=== PATIENT | male | born 1995 | race Hispanic/Latino ===

== ENCOUNTER 2020-12-31 22:59 | Emergency (ER) | payer OTHER ==
[~2020-12-31] VITALS: Ht 180.3 cm; Wt 64.5 kg
[2021-01-01 00:23] LABS: HEMOGLOBIN 14.6 g/dl (13.5-17.5); MEAN CORPUSCULAR HEMOGLOBIN 31.2 pg (27.0-33.0); MEAN CORPUSCULAR HGB CONC 33.2 g/dl (32.0-36.5); PLATELET COUNT, AUTOMATED 314 10^3/uL (150-450); RED BLOOD COUNT 4.68 10^6/uL (4.30-6.10); WHITE BLOOD COUNT 11.7 10^3/uL (4.0-10.0)
[2021-01-01 00:59] LABS: ACETAMINOPHEN LEVEL < 2.0 UG/ML (10.0-30.0); ALBUMIN 4.2 GM/DL (3.2-5.2); ALT/SGPT 32 U/L (12-78); BILIRUBIN,DIRECT 0.2 MG/DL (0.0-0.2); BILIRUBIN,TOTAL 0.7 MG/DL (0.2-1.0); BLOOD UREA NITROGEN 11 MG/DL (7-18); CALCIUM LEVEL 9.5 MG/DL (8.5-10.1); CARBON DIOXIDE LEVEL 31 MEQ/L (21-32); CHLORIDE LEVEL 101 MEQ/L (98-107); CREATININE FOR GFR 1.24 MG/DL (0.70-1.30); ETHYL ALCOHOL (ETHANOL) < 0.003 % (0.000-0.010); GLOMERULAR FILTRATION RATE > 60.0 (>60); GLUCOSE, FASTING 110 MG/DL (70-100); POTASSIUM SERUM 4.9 MEQ/L (3.5-5.1); SALICYLATE LEVEL < 1.7 MG/DL (5.0-30.0); SODIUM LEVEL 138 MEQ/L (136-145); TOTAL PROTEIN 7.5 GM/DL (6.4-8.2)
[2021-01-01 01:49] LABS: AMPHETAMINES LEVEL URINE POSITIVE (NEGATIVE); BARBITURATES URINE NEGATIVE (NEGATIVE); BENZODIAZEPINES URINE NEGATIVE (NEGATIVE); CANNABINOIDS URINE POSITIVE (NEGATIVE); COCAINE METABOLITE URINE NEGATIVE (NEGATIVE); METHADONE URINE NEGATIVE (NEGATIVE); OPIATES URINE NEGATIVE (NEGATIVE); PHENCYCLIDINE URINE NEGATIVE (NEGATIVE)
[2021-01-01 10:07] VITALS: BP 132/62
== END 2021-01-01 10:09 | disposition home or self-care (01) ==
LOC: M ED 22:59
DX: F22 Delusional disorders (principal); F19.10 Other psychoactive substance abuse, uncomplicated; Z88.0 Allergy status to penicillin

== ENCOUNTER 2021-01-10 19:24 | Emergency (ER) | payer OTHER ==
[~2021-01-10] VITALS: Ht 175.3 cm; Wt 63.6 kg
[2021-01-10 20:18] LABS: HEMATOCRIT 41.5 % (42.0-52.0); HEMOGLOBIN 13.9 g/dl (13.5-17.5); MEAN CORPUSCULAR HEMOGLOBIN 31.5 pg (27.0-33.0); MEAN CORPUSCULAR HGB CONC 33.5 g/dl (32.0-36.5); MEAN CORPUSCULAR VOLUME 94.1 fl (80.0-96.0); PLATELET COUNT, AUTOMATED 273 10^3/uL (150-450); RED BLOOD COUNT 4.41 10^6/uL (4.30-6.10); WHITE BLOOD COUNT 8.2 10^3/uL (4.0-10.0)
[2021-01-10 20:53] LABS: ACETAMINOPHEN LEVEL < 2.0 UG/ML (10.0-30.0); ALBUMIN 3.9 GM/DL (3.2-5.2); ALT/SGPT 37 U/L (12-78); BILIRUBIN,DIRECT 0.1 MG/DL (0.0-0.2); BILIRUBIN,TOTAL 0.3 MG/DL (0.2-1.0); BLOOD UREA NITROGEN 11 MG/DL (7-18); CARBON DIOXIDE LEVEL 34 MEQ/L (21-32); CHLORIDE LEVEL 106 MEQ/L (98-107); CREATININE FOR GFR 0.84 MG/DL (0.70-1.30); ETHYL ALCOHOL (ETHANOL) < 0.003 % (0.000-0.010); GLOMERULAR FILTRATION RATE > 60.0 (>60); GLUCOSE, FASTING 76 MG/DL (70-100); POTASSIUM SERUM 3.7 MEQ/L (3.5-5.1); SALICYLATE LEVEL < 1.7 MG/DL (5.0-30.0); SODIUM LEVEL 144 MEQ/L (136-145); THYROID STIMULATING HORMONE 0.705 uIU/ML (0.358-3.740); TOTAL PROTEIN 6.7 GM/DL (6.4-8.2)
[2021-01-10 21:47] VITALS: BP 131/83
== END 2021-01-10 21:48 | disposition home or self-care (01) ==
LOC: M ED 19:24
DX: F19.10 Other psychoactive substance abuse, uncomplicated (principal); F17.200 Nicotine dependence, unspecified, uncomplicated; Z88.0 Allergy status to penicillin

== ENCOUNTER 2021-03-14 23:00 | Emergency (ER) | payer OTHER ==
[~2021-03-14] VITALS: Ht 182.9 cm; Wt 63.7 kg
[2021-03-14 23:01] VITALS: BP 132/64
[2021-03-14] MEDS ORDERED: DOXY-350 PO (23:06)
[2021-03-15] MEDS ORDERED: LEVO250T12 PO (08:51)
== END 2021-03-15 01:44 | disposition left against medical advice (07) ==
LOC: M ED 23:00
DX: Z53.21 Procedure and treatment not carried out due to patient leaving prior to being seen by health care provider (principal)

== ENCOUNTER 2021-03-15 05:42 | Emergency (ER) | payer OTHER ==
[~2021-03-15] VITALS: Ht 182.9 cm; Wt 62.7 kg
[~2021-03-15 05:42] MED LIST: DOXY-350 PO
[2021-03-15] MEDS ORDERED: LORazepam 2 MG/ML VIAL IV STA ×3 (06:11→07:05)
[2021-03-15] MEDS ORDERED: LORazepam 2 MG/ML VIAL As Ordered ONE (06:17)
[2021-03-15 06:44] LABS: HEMOGLOBIN 14.2 g/dl (13.5-17.5); MEAN CORPUSCULAR HEMOGLOBIN 31.6 pg (27.0-33.0); MEAN CORPUSCULAR VOLUME 95.6 fl (80.0-96.0); PLATELET COUNT, AUTOMATED 358 10^3/uL (150-450); WHITE BLOOD COUNT 14.9 10^3/uL (4.0-10.0)
[2021-03-15 06:55] LABS: ACETAMINOPHEN LEVEL < 2.0 UG/ML (10.0-30.0); ALBUMIN 3.9 GM/DL (3.2-5.2); ALT/SGPT 181 U/L (12-78); BILIRUBIN,DIRECT 0.2 MG/DL (0.0-0.2); BILIRUBIN,TOTAL 0.6 MG/DL (0.2-1.0); BLOOD UREA NITROGEN 19 MG/DL (7-18); CALCIUM LEVEL 8.7 MG/DL (8.5-10.1); CARBON DIOXIDE LEVEL 25 MEQ/L (21-32); CHLORIDE LEVEL 105 MEQ/L (98-107); CREATININE FOR GFR 1.31 MG/DL (0.70-1.30); ETHYL ALCOHOL (ETHANOL) < 0.003 % (0.000-0.010); GLOMERULAR FILTRATION RATE > 60.0 (>60); GLUCOSE, FASTING 44 MG/DL (70-100); POTASSIUM SERUM 3.9 MEQ/L (3.5-5.1); SALICYLATE LEVEL 3.1 MG/DL (5.0-30.0); SODIUM LEVEL 140 MEQ/L (136-145)
[2021-03-15] MEDS ORDERED: HALOPERIDOL 5MG/ML VIAL (J1630 PER 1) IV STA (07:14)
--- NOTE | 2021-03-15 08:25 | REP ---
INDICATION: possible trauma. COMPARISON: None. TECHNIQUE: Helical scanning is acquired. 5 mm axial images were reformatted. Coronal MPR images were generated. FINDINGS: Bone window settings demonstrate an intact bony calvarium. There is no evidence of skull fracture or incidental bony calvarial lesion. The visualized paranasal sinuses appear clear. No intraorbital abnormality is seen. On soft tissue window setting images; the lateral, third, and fourth ventricles are normal in size and position. Fregoso-white differentiation pattern is normal above and below the tentorium. There are is no evidence of intracranial hemorrhage. No mass, edema, infarction, or midline shift is seen. No extra-axial fluid collection is appreciated. IMPRESSION: Negative noncontrast head CT. <Electronically signed by Douglas Moseley > 03/15/21 [id number]
--- NOTE | 2021-03-15 08:28 | REP ---
INDICATION: possible trauma. COMPARISON: NONE. TECHNIQUE: Helical scanning is acquired and 3 mm axial images re-formatted. Coronal MPR images are generated and reviewed. FINDINGS: There is a comminuted slightly depressed fracture of the nasal bone with slight overlying soft tissue swelling. Inferior maxillary spine appears intact. Zygomatic arches are normal. Maxillary sinuses are clear. Maxillary and bony is orbital margins are intact. Frontal sinuses are clear and its strong are intact. No ethmoid or sphenoid sinus opacification is seen. No skull base fracture is appreciated. The mandible is intact. IMPRESSION: There is a slightly depressed comminuted fracture of the nasal bone. No other facial fracture is visible. <Electronically signed by Douglas Moseley > 03/15/21 [id number]
[2021-03-15] MEDS ORDERED: LevoFLOXacin 250 MG TABLET PO ONE (08:50)
[2021-03-15] MEDS ORDERED: LEVO250T12 PO (08:51)
[2021-03-15 15:26] VITALS: BP 109/53
--- NOTE | 2021-03-15 18:41 | ECGEPIP ---
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
== END 2021-03-15 16:09 | disposition home or self-care (01) ==
LOC: M ED 05:42
DX: F19.10 Other psychoactive substance abuse, uncomplicated (principal); L03.90 Cellulitis, unspecified; S02.2XXA Fracture of nasal bones, initial encounter for closed fracture; X58.XXXA Exposure to other specified factors, initial encounter; Y92.9 Unspecified place or not applicable; Y93.9 Activity, unspecified; Y99.9 Unspecified external cause status; J45.909 Unspecified asthma, uncomplicated; Z88.0 Allergy status to penicillin
CPT/HCPCS: 36415; 70450; 70486; 80048; 80076; 80143; 82077; 84443; 85027; 93005; 96374; 96375; 99285; J1630; J2060

== ENCOUNTER 2021-09-08 17:25 | Emergency (ER) | payer OTHER ==
[~2021-09-08] VITALS: Ht 182.9 cm; Wt 63.6 kg
[~2021-09-08 17:25] MED LIST changes: +LEVO250T12 PO
[2021-09-08 17:33] VITALS: BP 129/56
--- OUTSIDE RECORDS SUMMARY | 2021-09-08 17:36 | CCD ---
Author RAINE Gibbons nerated Organization [facility] Address Unknown Phone Unavailable Care Team Providers Care Estate Manager Name Role Phone Serena Das Practitioner Shea Poole AdmittingPractitioner1 Shivani Weston Attphys Reza Vanegas Admphys Marizol Chavez AttendingPractitioner1 Functional Status No Results Allergies Name Onset Date Reaction Severity PCN (penicillin) (Allergy) ThuOct 24 07:00:00 2019 Hives Encounters Program Name Primary Diagnosis Admission Date/ Time Discharge Date/Time [facility] Waiting ThuOct 21 10:40:00 EST 2018Nov 09 15:41:00 2019 Integrated Outpatient Waiting Opioid dependence, uncomplicated ThuJul 06 16:36:00 EDT 2020 [facility] Waiting ThuNov 19 10:30:00 EST 2020Nov 19 17:53:00 EST 2020 [facility] Heroin use dis order, severe, dependence ThuJul 06 17:57:00 EDT 2020Jul 09 13:10:00 EDT 2020 [facility] Opioid dependence, uncomplicated ThuOct 24 15:54:00 2019Oct 28 14:20:00 2019 Immunizations No Known Immunizations Lab Results No Known Laboratory Results Medications Medication Directions Start Date End Date Suboxone 0.[address] one (1) francine m under the tongue daily ThuJul 10 00:00:00 EDT 2020Jul 20 00:00 :00 EDT 2020 SUBOXONE (BUPRENORPHINE-NALOXONE) 8MG-2MG F ILM 1 Film Daily SUBLINGUAL ThuJul 08 08:30:00 EDT 2020Jul 09 13:42 :00 EDT 2020 VENTOLIN HFA (ALBUTEROL SULFAT E) 0.09 MG/1 ACTUATION SUSPENSION 2 Puff Q4HPRN: Every 4 Hours As Needed INHALATION ThuJul 08 08:00:00 EDT 2020Jul 09 13:42:00 EDT 2020 SUBOXONE (BUPRENORPHINE-NALOXONE) 8MG-2MG F ILM 1 Film Daily SUBLINGUAL ThuJul 08 10:37:00 EDT 2020Jul 12 10:36 :00 EDT 2020 SUBOXONE (BUPRENORPHINE-NALOXONE) 8MG-2MG F ILM 1 Film Stat SUBLINGUAL (EKIT) ThuJul 07 10:00:00 EDT 2020Jul 07 10:03:00 EDT 2020 SUBOXONE (BUPRENORPHINE-NALOXONE) 4MG-1MG F ILM 1 Film Once SUBLINGUAL (EKIT) ThuJul 06 21:00:00 EDT 2020Jul 06 20:25:00 EDT 2020 SUBOXONE (BUPRENORPHINE-NALOXONE) 4MG-1MG F ILM 1 Film Stat SUBLINGUAL (EKIT) ThuJul 06 18:52:00 EDT 2020Jul 06 18:57:00 EDT 2020 ACETAMINOPHEN 500 MG CAPSULE 2 caps ule Q6HPRN: Every 6 Hours As Needed ORAL (MDD 6 Tabs) ThuJul 06 18:47:00 EDT 2020Jul 09 13:42:00 EDT 2020 DIPHENHYDRAMINE HCL 25 MG CAPSULE 1 capsule TIDPRN: Three Times A Day As Needed ORAL ThuJul 06 18:47:00 EDT 2020Jul 09 13:42:00 EDT 2020 DOCUSATE SODIUM 100 MG CAPSULE, LIQUID FILLE D 1 capsule Daily As Needed ORAL ThuJul 06 18:47:00 EDT 2020Jul 09 13:42:00 EDT 2020 HYDROXYZINE HCL 25 MG TABLET 1 tabl et TIDPRN: Three Times A Day As Needed ORAL (Do not give within two (2) hours of Diphenhydramine or within one (1) hour of clonidine administration) ThuJul 06 18:47:00 EDT 2020Jul 09 13:42:00 EDT 2020 FIBER-LAX 625 MG TABLET 2 tablet WV N: As Needed ORAL (MDD 4 Tabs) ThuJul 06 18:47:00 EDT 2020Jul 09 13:42 :00 EDT 2020 IBUPROFEN 200 MG TABLET 3 tablet TI DPRN: Three Times A Day As Needed ORAL ThuJul 06 18:47:00 EDT 2020Jul 09 13:42 :00 EDT 2020 MELATONIN 5 MG CAPSULE 1 capsule HS PRN: At Bedtime As Needed ORAL (MDD 5mg) ThuJul 06 18:47:00 EDT 2020Jul 09 13:42:00 EDT 2020 MULTIVITAMIN TABLET 1 tablet Daily ORAL ThuJul 06 18:47:00 EDT 2020Jul 09 13:42:00 EDT 2020 CALCIUM CARBONATE 500 MG TABLET, CHEWABLE 3 tablet TIDPRN: Three Times A Day As Needed ORAL ThuJul 06 18:47:00 EDT 2020Jul 09 13:42:00 EDT 2020 ONDANSETRON 4 MG TABLET 1 tablet TI DPRN: Three Times A Day As Needed ORAL ThuJul 06:47:00 EDT 2020Jul 09 13:42 :00 EDT 2020 CLONIDINE HCL 0.1 MG TABLET 1 table t TIDPRN: Three Times A Day As Needed ORAL (SBP >110 HR>60Do not give within one (1) hour of hydroxyzine administration) ThuJul 06 18:47:00 EDT 2020Jul 09 13:42:00 EDT 2020 NICOTINE POLACRILEX 2 MG LOZENGE/JUDITH 3 Each TID: Three Times a Day ORAL ThuJul 06 18:48:00 EDT 2020Jul 09 13:42:00 EDT 2020 NICODERM CQ (NICOTINE) 21 MG/24 HR PATCH, EX TENDED RELEASE 1 patch Daily As Needed TRANSDERMAL (Remove at HS. MDD 1 Patch) ThuJul 06 18:47:00 EDT 2020Jul 08 18:46:00 EDT 2020 NARCAN (NALOXONE HCL) 4 MG/0.1 ML SPRAY 1 spray(s) As Directed NASAL ThuJul 06 18:47:00 EDT 2020Jul 07 18:46:00 EDT 2020 PROAIR HFA (ALBUTEROL SULFATE) 0.09 MG/1 ACTUATION SUSPENSION 2 Puff TIDPRN: Three Times A Day As Needed INHALATION ThuOct 27 08:00:00 2019Oct 28 14:43:00 2019 NICOTINE 14 MG/24 HR PATCH, EXTENDED RELEASE 1 Patch Daily TRANSDERMAL ThuOct 26 06:00:2019Oct 28 14:43 :2019 EUCERIN DAILY PROTECTION (LOTI ON, MULTI INGREDIENT) 2%-7.5%-4.5%-2.4%-4.8% LOTION 1 Application TIDPRN: Three Times A Day As Needed TOPICAL APPLICATION ThuOct 26 07:42:00 2019Oct 28 14:43:2019 PROAIR HFA (ALBUTEROL SULFATE) 0.09 MG/1 ACTUATION SUSPENSION 2 Puff TIDPRN: Three Times A Day As Needed INHALATION ThuOct 26 06:00:2019Oct 27 10:01:00 2019 XOPENEX (LEVALBUTEROL HYDROCHLORIDE) 1.25 MG /3 ML SOLUTION 1 mL Stat INHALATION ThuOct 25 23:39:00 2019Nov 22 23:38:00 2020 BACTRIM DS (SULFAMETHOXAZOLE-T RIMETHOPRIM) 800MG-160MG TABLET 1 Tablet BID: Twice a Day ORAL ThuOct 25 06:00:2019Oct 28 14:43:00 2019 SUBOXONE (BUPRENORPHINE-NALOXONE) 8MG-2MG F ILM 1 Film Daily SUBLINGUAL ThuOct 26 06:00:00 2019Oct 28 14:43 :00 2019 NARCAN (NALOXONE HCL) 4 MG/0.1 ML SPRAY 1 spray(s) Once NASAL ThuOct 25 06:00:2019Oct 28 14:43 :00 2019 SUBOXONE (BUPRENORPHINE-NALOXONE) 4MG-1MG F ILM 1 Film Stat SUBLINGUAL (Take from [facility]) ThuOct 25 06:00:2019Oct 25 12:21:00 2019 SUBOXONE (BUPRENORPHINE-NALOXONE) 4MG-1MG F ILM 1 Film Daily SUBLINGUAL ThuOct 25 06:00:2019Oct 26 05:59 :00 2019 NARCAN (NALOXONE HCL) 4 MG/0.1 ML SPRAY 1 spray(s) As Directed NASAL ThuOct 24 17:02:2019Oct 28 14:43:00 2019 ACETAMINOPHEN 500 MG CAPSULE 2 caps ule Q4-6HPRN: Every 4-6 Hours As Needed ORAL (MDD 6 Tabs) ThuOct 24 17:01:2019Oct 28 14:43:00 2019 BENADRYL ALLERGY (DIPHENHYDRAM INE HYDROCHLORIDE) 25 MG TABLET 1 tablet TIDPRN: Three Times A Day As Needed ORAL ThuOct 24 17::2019Oct 28 14:43:2019 CATAPRES (CLONIDINE HYDROCHLORIDE) 0.1 MG TA BLET 1 tablet TIDPRN: Three Times A Day As Needed ORAL (Systolic BP >110, HR>60) ThuOct 24 17:2019Oct 28 14:43:00 2019 COLACE (DOCUSATE SODIUM) 100 MG CAPSULE, LIQ UID FILLED 1 capsule Daily As Needed ORAL ThuOct 24 17:2019Oct 28 14:43:2019 HYDROXYZINE HCL 25 MG TABLET 1 tabl et TIDPRN: Three Times A Day As Needed ORAL (Do not give within 2 hours of Diphenhydramine) ThuOct 24 17:2019Oct 28 14::2019 FIBER-LAX 625 MG TABLET 2 tablet WV N: As Needed ORAL (MDD 4 Tabs) ThuOct 24 17:2019Oct 28 14:43 :00 2019 IBUPROFEN 200 MG TABLET 3 tablet Da tiki As Needed ORAL (MDD 3200mg) ThuOct 24 17:2019Oct 28 14:43 :00 2019 MELATONIN 5 MG CAPSULE 1 capsule HS PRN: At Bedtime As Needed ORAL (MDD 5mg) ThuOct 24 17:2019Oct 28 14:43:00 2019 MULTIVITAMIN TABLET 1 tablet Daily ORAL ThuOct 24 17:2019Oct 28 14:43:00 2019 TUMS (CALCIUM CARBONATE) 500 MG TABLET, CHEW ABLE 3 tablet PRN: As Needed ORAL ThuOct 24 17:2019Oct 28 14:43:00 2019 ZOFRAN (ONDANSETRON HYDROCHLORIDE) 4 MG TABL ET 1 tablet TIDPRN: Three Times A Day As Needed ORAL ThuOct 24 172019Oct 28 14:432019 Problems No Known Problems Procedures No Known Procedures Social History Social History Observation Description Roly e Smoking Status Current Every Da y Smoker ThuOct 21:2018 Smoking Status Current Every Da y Smoker ThuOct 21:2018 Smoking Status Current Every Da y Smoker ThuOct 212018 Smoking Status Current Every Da y Smoker ThuOct 21 07:00:00 EST 2018 Smoking Status Current Every Da y Smoker ThuOct 21 07:00:00 EST 2018 Smoking Status Current Every Da y Smoker ThuOct 21:00:00 EST 2018 Smoking Status Current Every Da y Smoker ThuOct 21:00:00 EST 2018 Smoking Status Current Every Da y Smoker ThuOct 21:00:00 EST 2018 Smoking Status Current Every Da y Smoker ThuOct 21 07:00:00 EST 2018 Smoking Status Current Every Da y Smoker ThuOct 21 07:00:00 EST 2018 Smoking Status Current Every Da y Smoker ThuOct 21 07:00:00 EST 2018 Smoking Status Current Every Da y Smoker ThuOct 21 07:00:00 EST 2018 Smoking Status Current Every Da y Smoker ThuOct 21 07:00:00 EST 2018 Sex Male ThuSep 19 07:00:00 [facility] 1994 Vital Signs Vital Sign Measurement Date Heart Rate 94 /MIN ThuJul 09 13:17:00 EDT 2020 Systolic 104 MM[HG] ThuJul 09 1 3:17:00 EDT 2020 Diastolic 61 MM[HG] ThuJul 09 13:17:00 EDT 2020 Temperature 97.7 [DEGF] ThuJul 09 05:43:00 EDT 2020 Temperature 36.5 ARA ThuJun 11 05:43:00 EDT 2020 Heart Rate 64 /MIN ThuJul 09 05:43:00 EDT 2020 Respiration 16 /MIN ThuJun 11 05:43:00 EDT 2020 Systolic 117 MM[HG] ThuJul 09 0 5:43:00 EDT 2020 Diastolic 62 MM[HG] ThuJul 09 05:43:00 EDT 2020 BP Position 1 Position ThuJun 11 05:43:00 EDT 2020 Temperature 97.8 [DEGF] ThuJul 08 19:01:00 EDT 2020 Temperature 36.6 ARA ThuJun 11 0 19:01:00 EDT 2020 Heart Rate 90 /MIN ThuJul 08 19:01:00 EDT 2020 Respiration 16 /MIN ThuJun 11 0 19:01:00 EDT 2020 Systolic 110 MM[HG] ThuJul 08 1 9:01:00 EDT 2020 Diastolic 66 MM[HG] ThuJul 08 19:01:00 EDT 2020 Temperature 97.3 [DEGF] ThuJul 08 05:31:00 EDT 2020 Temperature 36.3 ARA Thu 3 0 05:31:00 EDT 2020 Heart Rate 64 /MIN ThuJul 08 05:31:00 EDT 2020 Respiration 16 /MIN Thu 3 0 05:31:00 EDT 2020 Systolic 118 MM[HG] Thu 30 0 5:31:00 EDT 2020 Diastolic 69 MM[HG] ThuJul 08 05:31:00 EDT 2020 BP Position 2 Position Thu 3 0 05:31:00 EDT 2020 Heart Rate 86 /MIN Sun Jun 29 20:15:00 EDT 2020 Respiration 17 /MIN Sun Jun 2 9 20:15:00 EDT 2020 Systolic 110 MM[HG] Sun Jun 29 2 0:15:00 EDT 2020 Diastolic 69 MM[HG] Thu 29 20:15:00 EDT 2020 BP Position 3 Position Thu 2 9 20:15:00 EDT 2020 Temperature 97.5 [DEGF] Thu 29 06:16:00 EDT 2020 Temperature 36.4 ARA Thu 2 9 06:16:00 EDT 2020 Heart Rate 71 /MIN Thu 29 06:16:00 EDT 2020 Respiration 16 /MIN Thu 2 9 06:16:00 EDT 2020 Systolic 120 MM[HG] Thu 29 0 6:16:00 EDT 2020 Diastolic 64 MM[HG] Thu 29 06:16:00 EDT 2020 BP Position 2 Position Thu 2 9 06:16:00 EDT 2020 Temperature 98.7 [DEGF] [facility] Jul 06 20:06:00 EDT 2020 Temperature 37.1 ARA [facility] Jun 2 8 20:06:00 EDT 2020 Heart Rate 74 /MIN [facility] Jun 28 20:06:00 EDT 2020 Respiration 16 /MIN [facility] Jun 2 8 20:06:00 EDT 2020 SpO2 100 % Sat Jun 28 20:06 :00 EDT 2020 Systolic 131 MM[HG] Sat Jun 28 2 0:06:00 EDT 2020 Diastolic 71 MM[HG] Sat Jun 28 20:06:00 EDT 2020 BP Position 2 Position [facility] Jun 2 8 20:06:00 EDT 2020 Height 6 0.0 ft Sat Jun 28 20: 06:00 EDT 2020 Height 72 in Sat Jun 28 20: 06:00 EDT 2020 Height 182.9 cm Sat Jul 06 20: 06:00 2020 Weight Lbs 140 lbs ThuJul 06 20:06:00 2020 Weight Kgs 63.6 KG Sat Jul 06 20:06:00 2020 BMI 19 Sat Jul 06 20:06: 00 2020 Temperature 97.6 [DEGF] Sun Dec 20 10:00:00 EST 2020 Temperature 36.4 ARA Sun Dec 2 0 10:00:00 EST 2020 Heart Rate 72 /MIN Sun Dec 20 10:00:00 EST 2020 Respiration 14 /MIN Sun Dec 2 0 10:00:00 EST 2020 Systolic 122 MM[HG] Sun Dec 20 1 0:00:00 EST 2020 Diastolic 68 MM[HG] Sun Dec 20 10:00:00 EST 2020 BP Position 3 Position Sun Dec 2 0 10:00:00 EST 2020 Temperature 97.8 [DEGF] Sat Dec 19 18:19:00 EST 2020 Temperature 36.6 ARA Sat Dec 1 9 18:19:00 EST 2020 Heart Rate 92 /MIN Sat Dec 19 18:19:00 EST 2020 Respiration 17 /MIN Sat Dec 1 9 18:19:00 EST 2020 Systolic 114 MM[HG] Sat Dec 19 1 8:19:00 EST 2020 Diastolic 74 MM[HG] Sat Dec 19 18:19:00 EST 2020 Temperature 98.2 [DEGF] Sat Dec 19 11:35:00 EST 2020 Temperature 36.8 ARA Sat Dec 1 9 11:35:00 EST 2020 Heart Rate 79 /MIN Sat Dec 19 11:35:00 EST 2020 Respiration 16 /MIN Sat Dec 1 9 11:35:00 EST 2020 Systolic 119 MM[HG] Sat Dec 19 1 1:35:00 EST 2020 Diastolic 68 MM[HG] Sat Dec 19 11:35:00 EST 2020 BP Position 3 Position Sat Dec 1 9 11:35:00 EST 2020 Temperature 97.5 [DEGF] Sat Dec 19 05:37:00 EST 2020 Temperature 36.4 ARA Sat Dec 1 9 05:37:00 EST 2020 Heart Rate 64 /MIN Sat Dec 19 05:37:00 EST 2020 Respiration 16 /MIN Sat Dec 1 9 05:37:00 EST 2020 Systolic 107 MM[HG] Sat Dec 19 0 5:37:00 EST 2020 Diastolic 60 MM[HG] Sat Dec 19 05:37:00 EST 2020 BP Position 2 Position Sat Dec 1 9 05:37:00 EST 2020 Heart Rate 53 /MIN Fri Dec 18 18:19:00 EST 2020 Respiration 16 /MIN Thu Dec 1 8 18:19:00 EST 2020 Systolic 113 MM[HG] Fri Dec 18 1 8:19:00 EST 2020 Diastolic 63 MM[HG] Fri Dec 18 18:19:00 EST 2020 BP Position 3 Position Fri Dec 1 8 18:19:00 EST 2020 Temperature 98.7 [DEGF] Thu Dec 18 14:07:00 EST 2020 Temperature 37.1 ARA Thu Dec 1 8 14:07:00 EST 2020 Heart Rate 74 /MIN Thu Dec 18 14:07:00 EST 2020 Respiration 17 /MIN Thu Dec 1 8 14:07:00 EST 2020 Systolic 103 MM[HG] Thu Dec 18 1 4:07:00 EST 2020 Diastolic 62 MM[HG] Thu Dec 18 14:07:00 EST 2020 Temperature 98.7 [DEGF] Thu Dec 18 13:56:00 EST 2020 Temperature 37.1 ARA Thu Dec 1 8 13:56:00 EST 2020 Heart Rate 74 /MIN Thu Dec 18 13:56:00 EST 2020 Respiration 17 /MIN Thu Dec 1 8 13:56:00 EST 2020 Systolic 103 MM[HG] Thu Dec 18 1 3:56:00 EST 2020 Diastolic 62 MM[HG] Thu Dec 18 13:56:00 EST 2020 BP Position 3 Position Thu Dec 1 8 13:56:00 EST 2020 Temperature 97.7 [DEGF] Thu Dec 18 06:02:00 EST 2020 Temperature 36.5 ARA Thu Dec 1 8 06:02:00 EST 2020 Heart Rate 73 /MIN Thu Dec 18 06:02:00 EST 2020 Respiration 16 /MIN Thu Dec 1 8 06:02:00 EST 2020 Systolic 107 MM[HG] Thu Dec 18 0 6:02:00 EST 2020 Diastolic 61 MM[HG] Thu Dec 18 06:02:00 EST 2020 BP Position 2 Position Thu Dec 1 8 06:02:00 EST 2020 Temperature 98.7 [DEGF] Nannette Dec 17 21:48:00 EST 2020 Temperature 37.1 ARA Nannette Dec 1 7 21:48:00 EST 2020 Heart Rate 16 /MIN Nannette Dec 17 21:48:00 EST 2020 Respiration 16 /MIN Nannette Dec 1 7 21:48:00 EST 2020 Systolic 136 MM[HG] Nannette Dec 17 2 1:48:00 EST 2020 Diastolic 76 MM[HG] Nannette Dec 17 21:48:00 EST 2020 BP Position 3 Position Nannette Oct 09 7 21:48:00 EST 2020 Temperature 97.8 [DEGF] Nannette Oct 17 07:21:00 EST 2020 Temperature 36.6 ARA Nannette Oct 09 7 07:21:00 EST 2020 Heart Rate 82 /MIN Nannette Oct 17 07:21:00 EST 2020 Respiration 16 /MIN Nannette Oct 09 7 07:21:00 EST 2020 Systolic 112 MM[HG] Nannette Oct 17 0 7:21:00 EST 2020 Diastolic 70 MM[HG] Nannette Oct 17 07:21:00 EST 2020 BP Position 3 Position Nannette Oct 09 7 07:21:00 EST 2020 Temperature 98.2 [DEGF] Thu 16 19:12:00 EST 2020 Temperature 36.8 ARA ThuOct 09 6 19:12:00 EST 2020 Heart Rate 87 /MIN Thu 16 19:12:00 EST 2020 Respiration 18 /MIN ThuOct 09 6 19:12:00 EST 2020 Systolic 115 MM[HG] Thu 16 1 9:12:00 EST 2020 Diastolic 75 MM[HG] ThuOct 24 19:12:00 EST 2020 Temperature 97.8 [DEGF] Thu 16 17:27:00 EST 2020 Temperature 36.6 ARA ThuOct 09 6 17:27:00 EST 2020 Heart Rate 91 /MIN Thu 16 17:27:00 EST 2020 Respiration 16 /MIN ThuOct 09 6 17:27:00 EST 2020 SpO2 99 % Thu 16 17:27 :00 EST 2020 Systolic 107 MM[HG] Thu 16 1 7:27:00 EST 2020 Diastolic 62 MM[HG] Thu 16 17:27:00 EST 2020 BP Position 2 Position ThuOct 09 6 17:27:00 EST 2020
--- OUTSIDE RECORDS SUMMARY | 2021-09-08 17:36 | CCD | Continuity of Care Document ---
Author Author Lane KUHN M.D. Organization Unknown Address [address] [place] [address] Phone [phone] Problems Description No Information Available Social History Type Date Description Comments Sex Unknown Allergies and adverse reactions Active Allergies Criticality Reaction | Severity Comments Date Penicillin Unable to assess criticality 09/23/2019 Medications Description No Active Medications Immunizations Description No Information Available Vital Signs Date Vital Result Comment 12/19/2019 8:45am Weight 154.00 lb 12/01/2019 8:44am BP Systolic 115 mmHg BP Diastolic 60 mmHg Heart Rate 95 /min Respiratory Rate 18 /min Body Temperature 97.8 F Weight 145.00 lb Results Description No Information Available Procedures Description No Information Available Medical Devices Description No Information Available Encounters Description No Information Available Assessments Description No Information Available Plan of Treatment No Information Available Functional Status Description No Information Available Mental Status Description No Information Available Referrals Description No Information Available"
--- OUTSIDE RECORDS SUMMARY | 2021-09-08 17:36 | CCD ---
Author RAINE Gibbons nerated Organization [facility] Address Unknown Phone Unavailable Care Team Providers Care Building Maintenance Worker Name Role Phone Serena Das Practitioner Shea Poole Admphys Shivani Weston Attphys Reza Vanegas Admphys Marizol Chavez AttendingPractitioner1 Functional Status No Results Allergies Name Onset Date Reaction Severity PCN (penicillin) (Allergy) ThuOct 24 07:00:00 2019 Hives Encounters Program Name Primary Diagnosis Admission Date/ Time Discharge Date/Time [facility] Outpatient Waiting Opioid dependence, uncomplicated ThuJul 06 16:36:00 EDT 2020 [facility] Heroin use dis order, severe, dependence ThuJul 06 17:57:00 EDT 2020Jul 09 13:10:00 EDT 2020 [place] [facility] Waiting ThuNov 19 10:30:00 EST 2020Nov 19 17:53:00 EST 2020 [place] [facility] Waiting ThuOct 21 10:40:00 2018Nov 09 15:41:00 2019 [place] [facility] Super[facility] Opioid dependence, uncomplicated ThuOct 24 [...] 18:52:00 EDT 2020Jul 06 18:57:00 EDT 2020 NICODERM CQ (NICOTINE) 21 MG/24 HR PATCH, EX TENDED RELEASE 1 patch Daily As Needed TRANSDERMAL (Remove at HS. MDD 1 Patch) ThuJul 06 18:47:00 EDT 2020Jul 08 18:46:00 EDT 2020 NARCAN (NALOXONE HCL) 4 MG/0.1 ML SPRAY 1 spray(s) As Directed NASAL ThuJul 06 18:47:00 EDT 2020Jul 07 18:46:00 EDT 2020 ACETAMINOPHEN 500 MG CAPSULE 2 [...] 2020 FIBER-LAX 625 MG TABLET 2 tablet [place] N: As Needed ORAL (MDD 4 Tabs) [...] 18:48:00 EDT 2020Jul 09 13:42:00 EDT 2020 PROAIR HFA (ALBUTEROL SULFATE) 0.09 MG/1 ACTUATION SUSPENSION 2 Puff TIDPRN: Three Times A Day As Needed INHALATION ThuOct 27 08:00:00 2019Oct 28 14:43:00 2019 NICOTINE 14 MG/24 HR PATCH, EXTENDED RELEASE 1 Patch Daily TRANSDERMAL ThuOct 26 06:00:00 2019Oct 28 14:43 2019 EUCERIN DAILY PROTECTION (LOTI ON, MULTI INGREDIENT) [...] ILM 1 Film Daily SUBLINGUAL ThuOct 26 06:00:2019Oct 28 14:43 :00 2019 NARCAN (NALOXONE HCL) 4 MG/0.1 ML SPRAY 1 spray(s) Once NASAL ThuOct 25:00:2019Oct 28 14:43 :00 2019 SUBOXONE (BUPRENORPHINE-NALOXONE) 4MG-1MG [...] A Day As Needed ORAL ThuOct 24 17:2019Oct 28 14:43:00 2019 CATAPRES (CLONIDINE HYDROCHLORIDE) 0.1 MG TA BLET [...] hours of Diphenhydramine) ThuOct 24 17:2019Oct 28 14:43:2019 FIBER-LAX 625 MG TABLET 2 tablet [place] N: As Needed ORAL (MDD 4 Tabs) ThuOct 24 17:2019Oct 28 14:43 :00 2019 IBUPROFEN 200 MG TABLET 3 tablet Da tiki As Needed ORAL (MDD 3200mg) ThuOct 24 17:2019Oct 28 14:43 :00 2019 MELATONIN 5 MG CAPSULE 1 capsule HS PRN: At Bedtime As Needed ORAL (MDD 5mg) ThuOct 24 17:2019Oct 28 14:43:2019 MULTIVITAMIN TABLET 1 tablet Daily ORAL ThuOct 24 17:2019Oct 28 14:43:00 2019 TUMS (CALCIUM CARBONATE) 500 MG TABLET, CHEW ABLE 3 tablet PRN: As Needed ORAL ThuOct 24 17:2019Oct 28 14:43:00 2019 ZOFRAN (ONDANSETRON HYDROCHLORIDE) 4 MG TABL ET 1 tablet TIDPRN: Three Times A Day As Needed ORAL ThuOct 24 172019Oct 28 14:43:00 2019 Problems No Known Problems Procedures No Known Procedures Social History Social History Observation Description Roly e Smoking Status Current Every Da y Smoker ThuOct 21::2018 Smoking Status Current Every Da y Smoker ThuOct 21:2018 Smoking Status Current Every Da y Smoker Fri Dec 13 07:00:00 EST 2019 Smoking Status Current Every Da y Smoker [...] EST 2018 Sex Male ThuSep 19 07:00:00 [facility] 1994 Vital Signs Vital Sign Measurement Date [...] 08 19:01:00 EDT 2020 Temperature 97.3 [DEGF] Mon Aug 30 05:31:00 EDT 2020 Temperature 36.3 ARA Thu 3 0 05:31:00 EDT 2020 Heart Rate 64 /MIN Thu 30 05:31:00 EDT 2020 Respiration 16 /MIN Thu 3 0 05:31:00 EDT 2020 Systolic 118 MM[HG] Thu 30 0 5:31:00 EDT 2020 Diastolic 69 MM[HG] Thu 30 05:31:00 EDT 2020 BP Position 2 Position Thu 3 0 05:31:00 EDT 2020 Heart Rate 86 /MIN Sun Jun 29 20:15:00 EDT 2020 Respiration 17 /MIN Sun Jun 2 9 20:15:00 EDT 2020 Systolic 110 MM[HG] Sun Jun 29 2 0:15:00 EDT 2020 Diastolic 69 MM[HG] Sun Jun 29 20:15:00 EDT 2020 BP Position 3 Position Sun Jun 2 9 20:15:00 EDT 2020 Temperature 97.5 [DEGF] Sun Jun 29 06:16:00 EDT 2020 Temperature 36.4 ARA Sun Jun 2 9 06:16:00 EDT 2020 Heart Rate 71 /MIN Sun Jun 29 06:16:00 EDT 2020 Respiration 16 /MIN Thu 2 9 06:16:00 EDT 2020 Systolic 120 MM[HG] Thu 29 0 6:16:00 EDT 2020 Diastolic 64 MM[HG] Thu 29 06:16:00 EDT 2020 BP Position 2 Position Thu 2 9 06:16:00 EDT 2020 Temperature 98.7 [DEGF] [facility] Jun 28 20:06:00 EDT 2020 Temperature 37.1 ARA [facility] Jun 2 8 20:06:00 EDT 2020 Heart Rate 74 /MIN Sat Jun 28 20:06:00 EDT 2020 Respiration 16 /MIN Sat Jun 2 8 20:06:00 EDT 2020 SpO2 100 % Sat Jun 28 20:06 :00 EDT 2020 Systolic 131 MM[HG] Sat Jun 28 2 0:06:00 EDT 2020 Diastolic 71 MM[HG] Sat Jun 28 20:06:00 EDT 2020 BP Position 2 Position [facility] Jun 2 8 20:06:00 EDT 2020 Height 6 0.0 ft Sat Jun 28 20: 06:00 EDT 2020 Height 72 in Sat Jun 28 20: 06:00 EDT 2020 Height 182.9 cm Sat Jul 06 20: 06:00 2020 Weight Lbs 140 lbs Sat Jul 06 20:06:00 2020 Weight Kgs 63.6 KG [...] 18 18:19:00 EST 2020 Respiration 16 /MIN Fri Dec 1 8 18:19:00 EST 2020 Systolic 113 MM[HG] Fri Dec 18 1 8:19:00 EST 2020 Diastolic 63 MM[HG] Fri Dec 18 18:19:00 EST 2020 BP Position 3 Position Fri Dec 1 8 18:19:00 EST 2020 Temperature 98.7 [DEGF] Fri Dec 18 14:07:00 EST 2020 Temperature 37.1 ARA Fri Dec 1 8 14:07:00 EST 2020 Heart Rate 74 /MIN Fri Dec 18 14:07:00 EST 2020 Respiration 17 /MIN Thu Dec 1 8 14:07:00 EST 2020 Systolic 103 MM[HG] Fri Dec 18 1 4:07:00 EST 2020 Diastolic 62 MM[HG] Fri Dec 18 14:07:00 EST 2020 Temperature 98.7 [DEGF] Thu Dec 18 13:56:00 EST 2020 Temperature 37.1 ARA Thu Dec 1 8 13:56:00 EST 2020 Heart Rate 74 /MIN Thu Dec 18 13:56:00 EST 2020 Respiration 17 /MIN Thu Dec 1 8 13:56:00 EST 2020 Systolic 103 MM[HG] Fri Dec 18 1 3:56:00 EST 2020 Diastolic 62 MM[HG] Fri Dec 18 13:56:00 EST 2020 BP Position 3 Position Thu Dec 1 8 13:56:00 EST 2020 Temperature 97.7 [DEGF] Thu Dec 18 06:02:00 EST 2020 Temperature 36.5 ARA Thu Dec 1 8 06:02:00 EST 2020 Heart Rate 73 /MIN Thu Dec 18 06:02:00 EST 2020 Respiration 16 /MIN Thu Dec 1 8 06:02:00 EST 2020 Systolic 107 MM[HG] Fri Dec 18 0 6:02:00 EST 2020 Diastolic 61 MM[HG] Fri Dec 18 06:02:00 EST 2020 BP Position [...] 2020 Heart Rate 82 /MIN N[place] Oct 25 07:21:00 EST 2020 Respiration 16 /MIN [place] Oct 09 7 07:21:00 EST 2020 Systolic 112 MM[HG] Nannette Oct 17 0 7:21:00 EST 2020 Diastolic 70 MM[HG] Nannette Oct 17 07:21:00 EST 2020 BP Position 3 Position Nannette Oct 09 7 07:21:00 EST 2020 Temperature 98.2 [DEGF] ThuOct 24 19:12:00 EST 2020 Temperature 36.8 ARA Wed Oct 09 6 19:12:00 EST 2020 Heart Rate 87 /MIN ThuOct 24 19:12:00 EST 2020 Respiration 18 /MIN ThuOct 09 6 19:12:00 EST 2020 Systolic 115 MM[HG] Thu 16 1 9:12:00 EST 2020 Diastolic 75 MM[HG] ThuOct 24 19:12:00 EST 2020 Temperature 97.8 [DEGF] Thu 16 17:27:00 EST 2020 Temperature 36.6 ARA Wed Oct 09 6 17:27:00 EST 2020 Heart Rate 91 /MIN ThuOct 24 17:27:00 EST 2020 Respiration 16 /MIN ThuOct 09 6 17:27:00 EST 2020 SpO2 99 % Thu 16 17:27 :00 EST 2020 Systolic 107 MM[HG] Thu 16 1 7:27:00 EST 2020 Diastolic 62 MM[HG] Thu 16 17:27:00 EST 2020 BP Position 2 Position ThuOct 09 6 17:27:00 EST 2020
--- OUTSIDE RECORDS SUMMARY | 2021-09-08 17:36 | CCD ---
Author RAINE Gibbons nerated Organization [facility] Address Unknown Phone Unavailable Care Team Providers Care Hydroponics Worker Name Role Phone Serena Das Practitioner Shea Poole Admphys Shivani Weston Attphys Reza Vanegas Admphys Marizol Chavez AttendingPractitioner1 Functional Status No Results Allergies Name Onset Date Reaction Severity PCN (penicillin) (Allergy) ThuOct 24 07:00:00 2019 Hives Encounters Program Name Primary Diagnosis Admission Date/ Time Discharge Date/Time [facility] Waiting ThuOct 21 10:40:00 2018Nov 09 15:41:00 2019 Integrated Outpatient Waiting Opioid dependence, uncomplicated ThuJul 06 16:36:00 EDT 2020 [facility] Heroin use dis order, severe, dependence ThuJul 06 17:57:00 EDT 2020Jul 09 13:10:00 EDT 2020 [place] Medically Supervised Opioid dependence, uncomplicated ThuOct 24 15:54:00 2019Oct 28 14:20:00 2019 [place] IP Waiting ThuNov 19 10:30:00 EST 2020Nov 19 17:53:00 EST 2020 Immunizations No Known Immunizations Lab Results No [...] 2020 FIBER-LAX 625 MG TABLET 2 tablet [place] N: As Needed ORAL (MDD 4 Tabs) ThuJul 06 18:47:00 EDT 2020Jul 09 13:42 :00 EDT 2020 IBUPROFEN 200 MG TABLET 3 tablet TI DPRN: Three Times A Day As Needed ORAL Sat Aug 28 18:47:00 EDT 2020Jul 09 13:42 :00 EDT [...] 14:43:2019 FIBER-LAX 625 MG TABLET 2 tablet [place] N: As Needed ORAL (MDD 4 Tabs) [...] Da y Smoker ThuOct 21 07:00:00 EST 2019 Smoking Status Current Every Da y Smoker ThuOct 21 07:00:00 EST 2019 Sex Male ThuSep [birth year] 07:00:00 EST 1994 Vital Signs Vital Sign Measurement Date [...] 08 19:01:00 EDT 2020 Temperature 97.3 [DEGF] Thu 30 05:31:00 EDT 2020 Temperature 36.3 ARA Mon Jun 3 0 05:31:00 EDT 2020 Heart Rate 64 /MIN Thu 30 05:31:00 EDT 2020 Respiration 16 /MIN Mon Jun 3 0 05:31:00 EDT 2020 Systolic 118 MM[HG] Thu 30 0 5:31:00 EDT 2020 Diastolic 69 MM[HG] Thu 30 05:31:00 EDT 2020 BP Position 2 Position Mon Jun 3 0 05:31:00 EDT 2020 Heart Rate [...] 29 06:16:00 EDT 2020 Respiration 16 /MIN Sun Jun 2 9 06:16:00 EDT 2020 Systolic 120 MM[HG] Sun Jun 29 0 6:16:00 EDT 2020 Diastolic 64 MM[HG] Sun Jun 29 06:16:00 EDT 2020 BP Position 2 Position Sun Jun 2 9 06:16:00 EDT 2020 Temperature 98.7 [DEGF] [facility] Jun 28 20:06:00 EDT 2020 Temperature 37.1 ARA Sat Jun 2 8 20:06:00 EDT 2020 Heart Rate 74 /MIN Sat Jun 28 20:06:00 EDT 2020 Respiration 16 /MIN Sat Jun 2 8 20:06:00 EDT 2020 SpO2 100 % Sat Jun 28 20:06 :00 EDT 2020 Systolic 131 MM[HG] Sat Jun 28 2 0:06:00 EDT 2020 Diastolic 71 MM[HG] Sat Jun 28 20:06:00 EDT 2020 BP Position 2 Position Sat Jun 2 8 20:06:00 EDT 2020 Height 6 0.0 ft Sat Jun 28 20: 06:00 EDT 2020 Height 72 in Sat Jul 06 20: 06:00 ED2020 Height 182.9 cm Sat Jul 06 20: 06:00 ED2020 Weight Lbs 140 lbs Sat Jul 06 20:06:00 ED2020 Weight Kgs 63.6 KG Sat Jul 06 20:06:00 ED2020 BMI 19 Sat Jul 06 20:06: 00 ED2020 Temperature 97.6 [DEGF] Sun Dec 20 10:00:00 [...] 18:19:00 EST 2020 BP Position 3 Position Thu Dec 1 8 18:19:00 EST 2020 Temperature [...] 1:48:00 EST 2020 Diastolic 76 MM[HG] Nannette Oct 17 21:48:00 EST 2020 BP Position 3 Position Nannette Oct 09 7 21:48:00 EST 2020 Temperature 97.8 [DEGF] [place] Oct 17 07:21:00 EST 2020 Temperature 36.6 ARA N[place] Oct 09 7 07:21:00 EST 2020 Heart Rate 82 /MIN N[place] Oct 17 07:21:00 EST 2020 Respiration 16 /MIN N[place] Oct 09 7 07:21:00 EST 2020 Systolic 112 MM[HG] Nannette Dec 17 0 7:21:00 EST 2020 Diastolic 70 MM[HG] Nannette Dec 17 07:21:00 EST 2020 BP Position 3 Position Nannette Oct 09 7 07:21:00 EST 2020 Temperature 98.2 [DEGF] Thu 16 19:12:00 EST 2020 Temperature 36.8 ARA ThuOct 09 6 19:12:00 EST 2020 Heart Rate 87 /MIN Thu 16 19:12:00 EST 2020 Respiration 18 /MIN ThuOct 09 6 19:12:00 EST 2020 Systolic 115 MM[HG] Thu 16 1 9:12:00 EST 2020 Diastolic 75 MM[HG] Thu 16 19:12:00 EST 2020 Temperature 97.8 [DEGF] Thu [...]
--- OUTSIDE RECORDS SUMMARY | 2021-09-08 17:37 | CCD ---
Author Author RAINE Hurd nerated Organization [facility] Address Unknown Phone Unavailable Care Team Providers Care Press Cutter Name Role Phone Serena Das Practitioner Shea Poole AdmittingPractitioner1 Shivani Weston Attphys Reza Vanegas Admphys Marizol Chavez AttendingPractitioner1 Functional Status No Results Allergies Name Onset Date Reaction Severity PCN (penicillin) (Allergy) ThuOct 24 07:00:00 2019 Hives Encounters Program Name Primary Diagnosis Admission Date/ Time Discharge Date/Time [place] Medically Supervised Opioid dependence, uncomplicated ThuOct 24 15:54:00 EST 2019Oct 28 14:20:00 2019 [place] IP Waiting ThuNov 19 10:30:00 EST 2020Nov 19 17:53:00 EST 2020 [place] [facility] Heroin use dis order, severe, dependence Sat Jul 06 17:57:00 EDT 2020Jul 09 13:10:00 EDT 2020 [facility] Outpatient Waiting Opioid dependence, uncomplicated ThuJul 06 16:36:00 EDT 2020 [place] [facility] Waiting ThuOct 21 10:40:00 EST 2018Nov 09 15:41:00 2019 Immunizations No Known Immunizations Lab Results No Known Laboratory Results Medications Medication Directions Start Date End Date SUBOXONE (BUPRENORPHINE-NALOXONE) 8MG-2MG F ILM 1 Film [...] 2020 FIBER-LAX 625 MG TABLET 2 tablet [place] N: As Needed ORAL (MDD 4 Tabs) [...] TRANSDERMAL ThuOct 26 06:00:00 2019Oct 28 14:43 :00 2019 EUCERIN DAILY PROTECTION (LOTI ON, MULTI INGREDIENT) 2%-7.5%-4.5%-2.4%-4.8% LOTION 1 Application TIDPRN: Three Times A Day As Needed TOPICAL APPLICATION ThuOct 26 07:42:00 2019Oct 28 14:43:00 2019 PROAIR HFA (ALBUTEROL SULFATE) 0.09 MG/1 ACTUATION [...] A Day As Needed ORAL ThuOct 24 17:01:2019Oct 28 14:43:2019 CATAPRES (CLONIDINE HYDROCHLORIDE) 0.1 MG TA BLET 1 tablet TIDPRN: Three Times A Day As Needed ORAL (Systolic BP >110, HR>60) ThuOct 24 17::2019Oct 28 14:43:2019 COLACE (DOCUSATE SODIUM) 100 MG CAPSULE, LIQ UID FILLED 1 capsule Daily As Needed ORAL ThuOct 24 17:2019Oct 28 14:43:2019 HYDROXYZINE HCL 25 MG TABLET 1 tabl et TIDPRN: Three Times A Day As Needed ORAL (Do not give within 2 hours of Diphenhydramine) ThuOct 24 17::2019Oct 28 14:43:2019 FIBER-LAX 625 MG TABLET 2 tablet MT N: As Needed ORAL (MDD 4 Tabs) ThuOct 24 17:2019Oct 28 14:43 :2019 IBUPROFEN 200 MG TABLET 3 tablet Da [...] ORAL ThuOct 24 17:2019Oct 28 14:43:00 2019 Problems No Known Problems Procedures No Known Procedures Social History Social History Observation Description Roly e Smoking Status Current Every Da y Smoker ThuOct 21:2018 Smoking Status Current Every Da y Smoker ThuOct 212018 Smoking Status Current Every Da y Smoker ThuOct 2100 2018 Smoking Status Current Every Da y [...] EST 2018 Sex Male ThuSep [birth year] 07:00:00 [facility] 1994 Vital Signs Vital Sign Measurement Date Heart Rate 94 /MIN ThuJul 09 13:17:00 EDT 2020 Systolic 104 MM[HG] ThuJul 09 1 3:17:00 EDT 2020 Diastolic 61 MM[HG] ThuJul 09 13:17:00 EDT 2020 Temperature 97.7 [DEGF] ThuJul 09 05:43:00 EDT 2020 Temperature 36.5 ARA ThuJun 11 05:43:00 EDT 2020 Heart Rate 64 /MIN ThuJul 09 05:43:00 EDT 2020 Respiration 16 /MIN ThuJun 11 1 05:43:00 EDT 2020 Systolic 117 MM[HG] ThuJul 09 0 5:43:00 EDT 2020 Diastolic 62 MM[HG] ThuJul 09 05:43:00 EDT 2020 BP Position 1 Position ThuJun 11 05:43:00 EDT 2020 Temperature 97.8 [DEGF] ThuJul 08 19:01:00 EDT 2020 Temperature 36.6 ARA Thu 3 0 19:01:00 EDT 2020 Heart Rate 90 /MIN ThuJul 08 19:01:00 EDT 2020 Respiration 16 /MIN Thu 3 0 19:01:00 EDT 2020 Systolic 110 MM[HG] ThuJul 08 1 9:01:00 EDT 2020 Diastolic 66 MM[HG] ThuJul 08 19:01:00 EDT 2020 Temperature 97.3 [DEGF] ThuJul 08 05:31:00 EDT 2020 Temperature 36.3 ARA Thu 3 0 05:31:00 EDT 2020 Heart Rate 64 /MIN ThuJul 08 05:31:00 EDT 2020 Respiration 16 /MIN ThuJun 11 0 05:31:00 EDT 2020 Systolic 118 MM[HG] [...] 9 06:16:00 EDT 2020 Temperature 98.7 [DEGF] [facility] Jul 06 20:06:00 EDT 2020 Temperature 37.1 ARA [facility] Jun 2 8 20:06:00 EDT 2020 Heart Rate 74 /MIN [facility] Jun 28 20:06:00 EDT 2020 Respiration 16 /MIN [facility] Jun 2 8 20:06:00 EDT 2020 SpO2 100 % Sat Jul 06 20:06 :00 EDT 2020 Systolic 131 MM[HG] Sat Jun 28 2 0:06:00 EDT 2020 Diastolic 71 MM[HG] Sat Jun 28 20:06:00 EDT 2020 BP Position 2 Position Sat Jun 2 8 20:06:00 EDT 2020 Height 6 0.0 ft Sat Jul 06 20: 06:00 EDT 2020 Height 72 in Sat Jul 06 20: 06:00 EDT 2020 Height 182.9 cm Sat Jul 06 20: 06:00 EDT 2020 Weight Lbs 140 lbs Sat Jul 06 20:06:00 EDT 2020 Weight Kgs 63.6 KG Sat Jul 06 20:06:00 EDT 2020 BMI 19 Sat Aug 20:06: 00 ED2020 Temperature 97.6 [DEGF] Sun [...] 13:56:00 EST 2020 Respiration 17 /MIN Thu 1 8 13:56:00 EST 2020 Systolic 103 MM[HG] Thu Dec 18 1 3:56:00 EST 2020 Diastolic 62 MM[HG] Thu Dec 18 13:56:00 EST 2020 BP Position 3 Position Thu 1 8 13:56:00 EST 2020 Temperature 97.7 [DEGF] Thu 18 06:02:00 EST 2020 Temperature 36.5 ARA Thu 1 8 06:02:00 EST 2020 Heart Rate 73 /MIN Thu 18 06:02:00 EST 2020 Respiration 16 /MIN Thu 1 8 06:02:00 EST 2020 Systolic 107 MM[HG] Thu Dec 18 0 6:02:00 EST 2020 Diastolic 61 MM[HG] Thu Dec 18 06:02:00 EST 2020 BP Position 2 Position Thu Dec 1 8 06:02:00 EST 2020 Temperature 98.7 [DEGF] Thu 17 21:48:00 EST 2020 Temperature 37.1 ARA ThuOct 09 7 21:48:00 EST 2020 Heart Rate 16 /MIN Thu 17 21:48:00 EST 2020 Respiration 16 /MIN Thu 1 7 21:48:00 EST 2020 Systolic 136 MM[HG] Thu Dec 17 2 1:48:00 EST 2020 Diastolic 76 MM[HG] Thu 17 21:48:00 EST 2020 BP Position 3 Position Thu 1 7 21:48:00 EST 2020 Temperature 97.8 [DEGF] [place] Dec 17 07:21:00 EST 2020 Temperature 36.6 ARA ThuOct 09 7 07:21:00 EST 2020 Heart Rate 82 /MIN Thu 17 07:21:00 EST 2020 Respiration 16 /MIN ThuOct 09 7 07:21:00 EST 2020 Systolic 112 MM[HG] Thu 17 0 7:21:00 EST 2020 Diastolic 70 MM[HG] Thu 17 07:21:00 EST 2020 BP Position 3 Position [place] Oct 09 7 07:21:00 EST 2020 Temperature 98.2 [DEGF] ThuOct 24 19:12:00 EST 2020 Temperature 36.8 ARA ThuOct [...]
--- OUTSIDE RECORDS SUMMARY | 2021-09-08 17:37 | CCD ---
Author RAINE Sandoval [facility] Address [address] [place] [id number] Care Team Providers Care Surgical Brace Maker Name Role Phone Serena Das Practitioner Shea Poole AdmittingPractitioner1 Shivani Weston Attphys Reza Vanegas Admphys Marizol Chavez AttendingPractitioner1 Functional Status No Results Allergies Name Onset Date Reaction Severity PCN (penicillin) (Allergy) ThuOct 24 07:00:00 EST 2019 Hives Encounters Program Name Primary Diagnosis Admission Date/ Time Discharge Date/Time [place] [facility] Waiting ThuNov 19 10:30:00 EST 2020Nov 19 17:53:00 EST 2020 [place] [facility] Super[facility] Opioid dependence, uncomplicated ThuOct 24 15:54:00 EST 2019Oct 28 14:20:00 EST 2019 [place] [facility] Heroin use dis order, severe, dependence Sat Jul 06 17:57:00 EDT 2020 [place] [facility] Waiting ThuOct 21 10:40:00 EST 2018Nov 09 15:41:00 EST 2019 [facility] Opioid dependence, uncomplicated Sat Jul 06 16:36:00 EDT 2020 Immunizations No Known Immunizations Lab Results No Known Laboratory Results Medications Medication Directions Start Date End Date SUBOXONE (BUPRENORPHINE-NALOXONE) 8MG-2MG F ILM 1 Film Daily SUBLINGUAL ThuJul 08 08:30:00 EDT 2020Jul 12 08:29 :00 EDT 2020 VENTOLIN HFA (ALBUTEROL SULFAT E) 0.09 MG/1 ACTUATION SUSPENSION 2 Puff Q4HPRN: Every 4 Hours As Needed INHALATION ThuJul 08 08:00:00 EDT 2020Aug 05 07:59:00 EDT 2020 SUBOXONE (BUPRENORPHINE-NALOXONE) 8MG-2MG F ILM [...] Stat SUBLINGUAL (EKIT) ThuJul 06 18:52:00 EDT 2020 [facility] Jul 06 18:57:00 EDT 2020 NICOTINE POLACRILEX 2 MG LOZENGE/JUDITH 3 Each TID: Three Times a Day ORAL [facility] Jul 06 18:48:00 EDT 2020 [facility] Aug 03 18:47:00 EDT 2020 NICODERM CQ (NICOTINE) 21 MG/24 HR PATCH, EX TENDED RELEASE 1 patch Daily As Needed TRANSDERMAL (Remove at HS. MDD 1 Patch) ThuJul 06 18:47:00 EDT 2020Jul 08 18:46:00 EDT 2020 CLONIDINE HCL 0.1 MG TABLET 1 table t TIDPRN: Three Times A Day As Needed ORAL (SBP >110 HR>60Do not give within one (1) hour of hydroxyzine administration) ThuJul 06 18:47:00 EDT 2020 [facility] Jul 13 18:46:00 EDT 2020 NARCAN (NALOXONE HCL) 4 MG/0.1 ML SPRAY 1 spray(s) As Directed NASAL ThuJul 06 18:47:00 EDT 2020 [place] Jul 07 18:46:00 EDT 2020 ONDANSETRON 4 MG TABLET 1 tablet TI DPRN: Three Times A Day As Needed ORAL ThuJul 06 18:47:00 EDT 2020 [facility] Jul 13 18:46 :00 EDT 2020 CALCIUM CARBONATE 500 MG TABLET, CHEWABLE 3 tablet TIDPRN: Three Times A Day As Needed ORAL ThuJul 06 18:47:00 EDT 2020 [facility] 18:46:00 EDT 2020 MULTIVITAMIN TABLET 1 tablet Daily ORAL ThuJul 06 18:47:00 EDT 2020 [facility] :46:00 EDT 2020 MELATONIN 5 MG CAPSULE 1 capsule HS PRN: At Bedtime As Needed ORAL (MDD 5mg) [facility] Jul 06:47:00 EDT 2020 [place] [address] :46:00 EDT 2020 IBUPROFEN 200 MG TABLET 3 tablet TI DPRN: Three Times A Day As Needed ORAL [facility] Jul 06:47:00 EDT 2020 [place] [address] :46 :00 EDT 2020 FIBER-LAX 625 MG TABLET 2 tablet DC N: As Needed ORAL (MDD 4 Tabs) [facility] Jul 06:47:00 EDT 2020 [place] [address] :46 :00 EDT 2020 HYDROXYZINE HCL 25 MG TABLET 1 tabl et TIDPRN: Three Times A Day As Needed ORAL (Do not give within two (2) hours of Diphenhydramine or within one (1) hour of clonidine administration) [facility] Jul 06:47:00 EDT 2020 [place] [address] :46:00 EDT 2020 DOCUSATE SODIUM 100 MG CAPSULE, LIQUID FILLE D 1 capsule Daily As Needed ORAL Sat Jul 06:47:00 EDT 2020 [place] [address] :46:00 EDT 2020 DIPHENHYDRAMINE HCL 25 MG CAPSULE 1 capsule TIDPRN: Three Times A Day As Needed ORAL Sat Jul 06:47:00 EDT 2020 [place] [address] :46:00 EDT 2020 ACETAMINOPHEN 500 MG CAPSULE 2 caps ule Q6HPRN: Every 6 Hours As Needed ORAL (MDD 6 Tabs) [facility] Jul 06:47:00 EDT 2020 [place] [address] :46:00 EDT 2020 PROAIR HFA (ALBUTEROL SULFATE) 0.09 [...] Needed ORAL (MDD 6 Tabs) ThuOct 24 17::2019Oct 28 14:43:00 2019 BENADRYL ALLERGY (DIPHENHYDRAM INE HYDROCHLORIDE) 25 MG TABLET 1 tablet TIDPRN: Three Times A Day As Needed ORAL ThuOct 24 17:01:2019Oct 28 14:43:00 2019 CATAPRES (CLONIDINE HYDROCHLORIDE) 0.1 MG TA BLET 1 tablet TIDPRN: Three Times A Day As Needed ORAL (Systolic BP >110, HR>60) ThuOct 24 17::2019Oct 28 14:43:00 2019 COLACE (DOCUSATE SODIUM) 100 MG CAPSULE, LIQ UID FILLED 1 capsule Daily As Needed ORAL ThuOct 24 17::2019Oct 28 14:43:00 2019 HYDROXYZINE HCL 25 MG TABLET 1 tabl et TIDPRN: Three Times A Day As Needed ORAL (Do not give within 2 hours of Diphenhydramine) ThuOct 24 17::2019Oct 28 14:43:00 2019 FIBER-LAX 625 MG TABLET 2 tablet DC N: As Needed ORAL (MDD 4 Tabs) ThuOct 24 17:2019Oct 28 14:43 :2019 IBUPROFEN 200 MG TABLET 3 tablet Da tiki As Needed ORAL (MDD 3200mg) ThuOct 24 17::2019Oct 28 14:43 :00 2019 MELATONIN 5 MG CAPSULE 1 capsule HS PRN: At Bedtime As Needed ORAL (MDD 5mg) ThuOct 24 17:2019Oct 28 14:43:00 2019 MULTIVITAMIN TABLET 1 tablet Daily ORAL ThuOct 24 17:2019Oct 28 14:43:00 2019 TUMS (CALCIUM CARBONATE) 500 MG TABLET, CHEW ABLE 3 tablet PRN: As Needed ORAL ThuOct 24 17::2019Oct 28 14:43:00 2019 ZOFRAN (ONDANSETRON HYDROCHLORIDE) 4 MG TABL ET 1 tablet TIDPRN: Three Times A Day As Needed ORAL ThuOct 24 17:2019Oct 28 14:43:00 2019 Problems No Known Problems Procedures No Known Procedures Social History Social History Observation Description Roly e Smoking Status Current Every Da y Smoker ThuOct 21:00 2018 Smoking Status Current Every Da y [...] EST 2018 Sex Male ThuSep 19 07:00:00 EST 1994 Vital Signs Vital Sign Measurement Date Temperature 97.8 [DEGF] ThuJul 08 19:01:00 EDT [...] 0 05:31:00 EDT 2020 Systolic 118 MM[HG] ThuJul 08 0 5:31:00 EDT 2020 Diastolic 69 MM[HG] ThuJul 08 05:31:00 EDT 2020 BP Position 2 Position ThuJun 11 0 05:31:00 EDT 2020 Heart Rate 86 /MIN ThuJul 07 20:15:00 EDT 2020 Respiration 17 /MIN ThuJun 10 20:15:00 EDT 2020 Systolic 110 MM[HG] ThuJul 07 2 0:15:00 EDT 2020 Diastolic 69 MM[HG] ThuJul 07 20:15:00 EDT 2020 BP Position 3 Position ThuJun 10 20:15:00 EDT 2020 Temperature 97.5 [DEGF] ThuJul 07 06:16:00 EDT 2020 Temperature 36.4 ARA ThuJun 10 06:16:00 EDT 2020 Heart Rate 71 /MIN ThuJul 07 06:16:00 EDT 2020 Respiration 16 /MIN ThuJun 10 06:16:00 EDT 2020 Systolic 120 MM[HG] Sun Jun 29 0 6:16:00 EDT 2020 Diastolic 64 MM[HG] Sun Jun 29 06:16:00 EDT 2020 BP Position 2 Position Sun Jun 2 9 06:16:00 EDT 2020 Temperature 98.7 [DEGF] Sat Jun 28 20:06:00 EDT 2020 Temperature 37.1 ARA Sat Jun 2 8 20:06:00 EDT 2020 Heart Rate 74 /MIN Sat Jun 28 20:06:00 EDT 2020 Respiration 16 /MIN Sat Jun 2 8 20:06:00 EDT 2020 SpO2 100 % Sat Jun 28 20:06 :00 EDT 2020 Systolic 131 MM[HG] Sat Jun 28 2 0:06:00 EDT 2020 Diastolic 71 MM[HG] Sat Jul 06 20:06:00 EDT 2020 BP Position 2 Position Sat Jun 10 8 20:06:00 EDT 2020 Height 6 0.0 ft Sat Jul 06 20: 06:00 EDT 2020 Height 72 in Sat Jul 06 20: 06:00 EDT 2020 Height 182.9 cm Sat Jul 06 20: 06:00 EDT 2020 Weight Lbs 140 lbs Sat Jul 06 20:06:00 EDT 2020 Weight Kgs 63.6 KG Sat Jul 06 20:06:00 EDT 2020 BMI 19 Sat Jul 06 20:06: 00 EDT 2020 Temperature 97.6 [DEGF] Sun Dec 20 10:00:00 EST 2019 Temperature 36.4 ARA Sun Dec 2 0 10:00:00 EST 2019 Heart Rate 72 /MIN Thu Dec 20 10:00:00 EST 2019 Respiration 14 /MIN Sun Dec 2 0 10:00:00 EST 2019 Systolic 122 MM[HG] Sun Dec 20 1 0:00:00 EST 2019 Diastolic 68 MM[HG] Sun Dec 20 10:00:00 EST 2019 BP Position 3 Position Sun Dec 2 0 10:00:00 EST 2019 Temperature 97.8 [DEGF] Sat Dec 19 18:19:00 EST 2019 Temperature 36.6 ARA Sat Dec 1 9 18:19:00 EST 2019 Heart Rate 92 /MIN Sat Dec 19 18:19:00 EST 2019 Respiration 17 /MIN Sat Dec 1 9 18:19:00 EST 2019 Systolic 114 MM[HG] Sat Dec 19 1 [...] 05:37:00 EST 2020 Heart Rate 53 /MIN Thu Dec 18 18:19:00 EST 2020 Respiration 16 /MIN Fri Dec 1 8 18:19:00 EST 2020 Systolic 113 MM[HG] Thu Dec 18 1 8:19:00 EST 2020 Diastolic 63 MM[HG] Thu Dec 18 18:19:00 EST 2020 BP Position [...] 6:02:00 EST 2020 Diastolic 61 MM[HG] Thu 18 06:02:00 EST 2020 BP Position 2 Position ThuOct 09 8 06:02:00 EST 2020 Temperature 98.7 [DEGF] Thu 17 21:48:00 EST 2020 Temperature 37.1 ARA [place] Oct 09 7 21:48:00 EST 2020 Heart Rate 16 /MIN Thu 17 21:48:00 EST 2020 Respiration 16 /MIN ThuOct 09 7 21:48:00 EST 2020 Systolic 136 MM[HG] [place] Oct 17 2 1:48:00 EST 2020 Diastolic 76 MM[HG] Nannette Oct 17 21:48:00 EST 2020 BP Position 3 Position ThuOct 09 7 21:48:00 EST 2020 Temperature 97.8 [DEGF] Thu 17 07:21:00 EST 2020 Temperature 36.6 ARA [place] Oct 1 7 07:21:00 EST 2020 Heart Rate 82 /MIN Thu 17 07:21:00 EST 2020 Respiration 16 /MIN ThuOct 09 7 07:21:00 EST 2020 Systolic 112 MM[HG] Nannette Dec 17 0 7:21:00 EST 2020 Diastolic 70 MM[HG] Nannette Dec 17 07:21:00 EST 2020 BP Position 3 Position ThuOct 09 7 07:21:00 EST 2020 Temperature 98.2 [DEGF] Thu 16 19:12:00 EST 2020 Temperature 36.8 ARA Thu 1 6 19:12:00 EST 2020 Heart Rate 87 /MIN Thu 16 19:12:00 EST 2020 Respiration 18 /MIN ThuOct 09 6 19:12:00 EST 2020 Systolic 115 MM[HG] Thu 16 1 9:12:00 EST 2020 Diastolic 75 MM[HG] Thu 16 19:12:00 EST 2020 Temperature 97.8 [DEGF] Thu 16 17:27:00 EST 2020 Temperature 36.6 ARA Thu 1 6 17:27:00 EST 2020 Heart Rate 91 /MIN ThuOct 24 17:27:00 2019 Respiration 16 /MIN ThuOct 09 17:27:00 2019 SpO2 99 % ThuOct 24 17:27 :00 2019 Systolic 107 MM[HG] ThuOct 24 7:27:00 2019 Diastolic 62 MM[HG] ThuOct 24 17:27:00 2019 BP Position 2 Position ThuOct 09 17:27:00 2019
--- OUTSIDE RECORDS SUMMARY | 2021-09-08 17:37 | CCD ---
Author Author RAINE Hurd nerated Organization [facility] Address Unknown Phone Unavailable Care Team Providers Care Sales And Service Technician Name Role Phone Serena Das Practitioner Shea Poole AdmittingPractitioner1 Shivani Weston Attphys Reza Vanegas Admphys Marizol Chavez AttendingPractitioner1 Functional Status No Results Allergies Name Onset Date Reaction Severity PCN (penicillin) (Allergy) ThuOct 24 07:00:00 EST 2019 Hives Encounters Program Name Primary Diagnosis Admission Date/ Time Discharge Date/Time [place] [facility] Supervised Opioid dependence, uncomplicated ThuOct 24 15:54:00 EST 2019Oct 28 14:20:00 2019 [place] [facility] Waiting ThuOct 21 10:40:00 EST 2018Nov 09 15:41:00 EST 2019 [place] [facility] Heroin use dis order, severe, dependence Sat Jul 06 17:57:00 EDT 2020 [place] [facility] Waiting ThuNov 19 10:30:00 EST 2020Nov 19 17:53:00 EST 2020 [facility] Opioid dependence, uncomplicated ThuJul 06 16:36:00 EDT 2020 Immunizations No Known Immunizations Lab Results No Known Laboratory Results Medications Medication Directions Start Date End Date VENTOLIN HFA (ALBUTEROL SULFAT E) 0.09 MG/1 ACTUATION SUSPENSION 2 Puff Q4HPRN: Every 4 Hours As Needed INHALATION ThuJul 08 08:00:00 EDT 2020Aug 05 07:59:00 EDT 2020 SUBOXONE (BUPRENORPHINE-NALOXONE) 8MG-2MG F ILM 1 Film Daily SUBLINGUAL ThuJul 08 10:37:00 EDT 2020Jul 12 10:36 :00 EDT 2020 SUBOXONE (BUPRENORPHINE-NALOXONE) 8MG-2MG F ILM 1 Film Stat SUBLINGUAL (EKIT) [place] Jul 07 10:00:00 EDT 2020 [place] Jul 07 10:03:00 EDT 2020 SUBOXONE (BUPRENORPHINE-NALOXONE) 4MG-1MG F ILM 1 Film Once SUBLINGUAL (EKIT) [facility] Jul 06 21:00:00 EDT 2020 [facility] Jul 06 20:25:00 EDT 2020 SUBOXONE (BUPRENORPHINE-NALOXONE) 4MG-1MG F ILM 1 Film Stat SUBLINGUAL (EKIT) [facility] Jul 06 18:52:00 EDT 2020 [facility] Jul 06 18:57:00 EDT 2020 NICOTINE POLACRILEX 2 MG LOZENGE/JUDITH 3 Each TID: Three Times a Day ORAL [facility] Jul 06 18:48:00 EDT 2020 [facility] 18:47:00 EDT 2020 NICODERM CQ (NICOTINE) 21 MG/24 HR PATCH, EX TENDED RELEASE 1 patch Daily As Needed TRANSDERMAL (Remove at HS. MDD 1 Patch) [facility] Jul 06 18:47:00 EDT 2020 [facility] Jul 08 18:46:00 EDT 2020 CLONIDINE HCL 0.1 MG TABLET 1 table t TIDPRN: Three Times A Day As Needed ORAL (SBP >110 HR>60Do not give within one (1) hour of hydroxyzine administration) [facility] Jul 06 18:47:00 EDT 2020 [facility] 18:46:00 EDT 2020 NARCAN (NALOXONE HCL) 4 MG/0.1 ML SPRAY 1 spray(s) As Directed NASAL [facility] Jul 06 18:47:00 EDT 2020 [place] Jul 07 18:46:00 EDT 2020 ONDANSETRON 4 MG TABLET 1 tablet TI DPRN: Three Times A Day As Needed ORAL ThuJul 06 18:47:00 EDT 2020 [facility] 18:46 :00 EDT 2020 CALCIUM CARBONATE 500 MG TABLET, CHEWABLE 3 tablet TIDPRN: Three Times A Day As Needed ORAL ThuJul 06 18:47:00 EDT 2020 [facility] 18:46:00 EDT 2020 MULTIVITAMIN TABLET 1 tablet Daily ORAL ThuJul 06 18:47:00 EDT 2020 [facility] 18:46:00 EDT 2020 MELATONIN 5 MG CAPSULE 1 capsule HS PRN: At Bedtime As Needed ORAL (MDD 5mg) ThuJul 06 18:47:00 EDT 2020 [place] [address] 18:46:00 EDT 2020 IBUPROFEN 200 MG TABLET 3 tablet TI DPRN: Three Times A Day As Needed ORAL Sat Jul 06:47:00 EDT 2020 [place] [address] 46 :00 EDT 2020 FIBER-LAX 625 MG TABLET 2 tablet [place] N: As Needed ORAL (MDD 4 Tabs) [facility] Jul 06:47:00 EDT 2020 [place] [address] :46 :00 EDT 2020 HYDROXYZINE HCL 25 MG TABLET 1 tabl et TIDPRN: Three Times A Day As Needed ORAL (Do not give within two (2) hours of Diphenhydramine or within one (1) hour of clonidine administration) [facility] Jul 06:47:00 EDT 2020 [place] [address] :46:00 EDT 2020 DOCUSATE SODIUM 100 MG CAPSULE, LIQUID FILLE D 1 capsule Daily As Needed ORAL [facility] Jul 0647:00 EDT 2020 [place] [address] :46:00 EDT 2020 DIPHENHYDRAMINE HCL 25 MG CAPSULE 1 capsule TIDPRN: Three Times A Day As Needed ORAL Sat Jul 0647:00 EDT 2020 [place] [address] :46:00 EDT 2020 ACETAMINOPHEN 500 MG CAPSULE 2 caps ule Q6HPRN: Every 6 Hours As Needed ORAL (MDD 6 Tabs) ThuJul 06:47:00 EDT 2020 [place] [address] :46:00 EDT 2020 PROAIR HFA (ALBUTEROL SULFATE) [...] Tablet BID: Twice a Day ORAL ThuOct 25:00:2019Oct 28 14:43:00 2019 SUBOXONE (BUPRENORPHINE-NALOXONE) 8MG-2MG F ILM 1 Film Daily SUBLINGUAL ThuOct 26 06:00:00 2019Oct 28 14:43 :00 2019 NARCAN (NALOXONE HCL) 4 MG/0.1 ML SPRAY 1 spray(s) Once NASAL ThuOct 25:00:2019Oct 28 14:43 :2019 SUBOXONE (BUPRENORPHINE-NALOXONE) 4MG-1MG F ILM 1 Film Stat SUBLINGUAL (Take from EKIT) ThuOct 25 06:00:2019Oct 25 12:21:00 2019 SUBOXONE (BUPRENORPHINE-NALOXONE) 4MG-1MG F ILM 1 Film Daily SUBLINGUAL ThuOct 25 06:00:00 2019Oct 26 05:59 :00 2019 NARCAN (NALOXONE HCL) [...] Times A Day As Needed ORAL ThuOct 24:2019Oct 28 14:43:2019 CATAPRES (CLONIDINE HYDROCHLORIDE) 0.1 MG TA BLET 1 tablet TIDPRN: Three Times A Day As Needed ORAL (Systolic BP >110, HR>60) ThuOct 24 17:01:2019Oct 28 14:43:00 2019 COLACE (DOCUSATE SODIUM) 100 MG CAPSULE, LIQ UID FILLED 1 capsule Daily As Needed ORAL ThuOct 24 17::2019Oct 28 14:43:00 2019 HYDROXYZINE HCL 25 MG TABLET 1 tabl et TIDPRN: Three Times A Day As Needed ORAL (Do not give within 2 hours of Diphenhydramine) ThuOct 24 17:01:2019Oct 28 14:43:00 2019 FIBER-LAX 625 MG TABLET 2 tablet [place] N: As Needed ORAL (MDD 4 Tabs) ThuOct 24 17:01:2019Oct 28 14:43 :00 2019 IBUPROFEN 200 MG TABLET 3 tablet Da tiki As Needed ORAL (MDD 3200mg) ThuOct 24 17::2019Oct 28 14:43 :00 2019 MELATONIN 5 MG CAPSULE 1 capsule HS PRN: At Bedtime As Needed ORAL (MDD 5mg) ThuOct 24 17::2019Oct 28 14:43:00 2019 MULTIVITAMIN TABLET 1 tablet Daily ORAL ThuOct 24 17:2019Oct 28 14:43:00 2019 TUMS (CALCIUM CARBONATE) 500 MG TABLET, CHEW ABLE 3 tablet PRN: As Needed ORAL ThuOct 24 17::2019Oct 28 14:43:00 2019 ZOFRAN (ONDANSETRON HYDROCHLORIDE) 4 MG TABL ET 1 tablet TIDPRN: Three Times A Day As Needed ORAL ThuOct 24 17::2019Oct 28 14:43:00 2019 Problems No Known Problems [...] Status Current Every Da y Smoker ThuOct 21::00 2018 Smoking Status Current Every Da y Smoker ThuOct 21:2018 Smoking Status Current Every Da y Smoker ThuOct 212018 Smoking Status Current Every Da y Smoker ThuOct 2100:00 EST 2018 Smoking Status Current Every Da y Smoker ThuOct 21 07:00:00 EST 2018 Sex Male ThuSep 19 07:00:00 EST 1994 Vital Signs Vital Sign Measurement Date Temperature 97.3 [DEGF] ThuJul 08 05:31:00 EDT [...] 05:31:00 EDT 2020 Heart Rate 86 /MIN Thu 29 20:15:00 EDT 2020 Respiration 17 /MIN Thu 2 9 20:15:00 EDT 2020 Systolic 110 [...] 9 06:16:00 EDT 2020 Temperature 98.7 [DEGF] [facility] Jun 28 20:06:00 EDT 2020 Temperature 37.1 ARA [facility] Jun 2 8 20:06:00 EDT 2020 Heart Rate 74 /MIN [facility] Jun 28 20:06:00 EDT 2020 Respiration 16 /MIN [facility] Jun 2 8 20:06:00 EDT 2020 SpO2 100 % [facility] Jun 28 20:06 :00 EDT 2020 Systolic 131 MM[HG] [facility] Jun 28 2 0:06:00 EDT 2020 Diastolic 71 MM[HG] ThuJul 06 20:06:00 ED2020 BP Position 2 Position Sat Jun 10 8 20:06:00 ED2020 Height 6 0.0 ft Sat Jul 06 20: 06:00 ED2020 Height 72 in Sat Jul 06 20: 06:00 ED2020 Height 182.9 cm ThuJul 06 20: 06:00 ED2020 Weight Lbs 140 [...] 18 14:07:00 EST 2020 Respiration 17 /MIN Fri Dec 1 8 14:07:00 EST 2020 Systolic 103 MM[HG] Fri Dec 18 1 4:07:00 EST 2020 Diastolic 62 MM[HG] Thu Dec 18 14:07:00 EST 2020 Temperature 98.7 [DEGF] Thu Dec 18 13:56:00 EST 2020 Temperature 37.1 ARA Fri Dec 1 8 13:56:00 EST 2020 Heart [...] 21:48:00 EST 2020 Respiration 16 /MIN [place] Oct 1 7 21:48:00 EST 2020 Systolic 136 [...]
--- OUTSIDE RECORDS SUMMARY | 2021-09-08 17:37 | CCD ---
Author RAINE Mendez [facility] Address [address] [place] [id number] Care Team Providers Care Indexer Name Role Phone AlbertoShea farrell AdmittingPractitioner1 Pawan Chavezannah AttendingPractitioner1 Functional Status No Results Allergies Name Onset Date Reaction Severity PCN (penicillin) (Allergy) ThuOct 24 07:00:00 2019 Hives Encounters Program Name Primary Diagnosis Admission Date/ Time Discharge Date/Time [place] [facility] Waiting ThuNov 19 11:30:00 2020Nov 19 17:53:00 2020 [place] [facility] Waiting ThuOct 21 10:40:00 2018Nov 09 15:41:00 2019 [place] [facility] Supervised Opioid dependence, uncomplicated ThuOct 24 15:54:00 2019Oct 28 14:20:00 2019 Immunizations No Known Immunizations Lab Results No Known Laboratory Results Medications Medication Directions Start Date End Date PROAIR HFA (ALBUTEROL SULFATE) 0.09 MG/1 ACTUATION [...] a Day ORAL ThuOct 25 06:00:2019Oct 28 14:43:2019 SUBOXONE (BUPRENORPHINE-NALOXONE) 8MG-2MG F ILM 1 Film Daily SUBLINGUAL ThuOct 26 06:00:00 2019Oct 28 14:43 :00 2019 NARCAN (NALOXONE HCL) 4 MG/0.1 ML SPRAY 1 spray(s) Once NASAL ThuOct 25 06:00:2019Oct 28 14:43 :2019 SUBOXONE (BUPRENORPHINE-NALOXONE) 4MG-1MG F ILM 1 Film Stat SUBLINGUAL (Take from EKIT) ThuOct 25 06:00:00 2019Oct 25 12:21:00 2019 SUBOXONE (BUPRENORPHINE-NALOXONE) 4MG-1MG F [...] hours of Diphenhydramine) ThuOct 24 17:2019Oct 28 14:43:00 2019 FIBER-LAX 625 MG TABLET 2 tablet [place] N: As Needed ORAL (MDD 4 Tabs) ThuOct 24 17::2019Oct 28 14:43 :00 2019 IBUPROFEN 200 MG [...] Current Every Da y Smoker ThuOct [id number] Sex Male Sat Sep 19 07:00:00 EST 1994 Vital Signs Vital Sign Measurement Date Temperature 97.6 [DEGF] ThuOct 28 10::2019 Temperature 36.4 ARA Thu 2 0 10:00:00 EST 2020 Heart Rate [...] EST 2020 BP Position 2 Position Thu 1 8 06:02:00 EST 2020 Temperature 98.7 [DEGF] Thu 17 21:48:00 EST 2020 Temperature 37.1 ARA Thu 1 7 21:48:00 EST 2020 Heart Rate 16 /MIN Thu 17 21:48:00 EST 2020 Respiration 16 /MIN ThuOct 09 7 21:48:00 EST 2020 Systolic 136 MM[HG] Thu 17 2 1:48:00 EST 2020 Diastolic 76 MM[HG] [place] Oct 17 21:48:00 EST 2020 BP Position 3 Position Thu 1 7 21:48:00 EST 2020 Temperature 97.8 [DEGF] Thu 17 07:21:00 EST 2020 Temperature 36.6 ARA Thu 1 7 07:21:00 EST 2020 Heart Rate 82 /MIN Thu 17 07:21:00 EST 2020 Respiration 16 /MIN [place] Dec 1 7 07:21:00 EST 2020 Systolic 112 MM[HG] [...] 6 19:12:00 EST 2020 Systolic 115 MM[HG] ThuOct 24 1 9:12:00 EST 2020 Diastolic 75 MM[HG] ThuOct 24 19:12:00 EST 2020 Temperature 97.8 [DEGF] ThuOct 24 17:27:00 EST 2020 Temperature 36.6 ARA ThuOct 09 6 17:27:00 EST 2020 Heart Rate 91 /MIN ThuOct 24 17:27:00 EST 2020 Respiration 16 /MIN ThuOct 09 6 17:27:00 EST 2020 SpO2 99 % ThuOct 24 17:27 :00 EST 2020 Systolic 107 MM[HG] ThuOct 24 1 7:27:00 EST 2020 Diastolic 62 MM[HG] ThuOct 24 17:27:00 EST 2020 BP Position 2 Position ThuOct 09 6 17:27:00 EST 2020
--- OUTSIDE RECORDS SUMMARY | 2021-09-08 17:37 | CCD ---
Author RAINE [facility] Address [address] [place] [id number] Care Team Providers Care Fur Stretcher Name Role Phone Serena Das Practitioner Shea Poole Admphys Shivani Weston Attphys Reza Vanegas Admphys Marizol Chavez AttendingPractitioner1 Functional Status No Results Allergies Name Onset Date Reaction Severity PCN (penicillin) (Allergy) ThuOct 24 07:00:00 2020 Hives Encounters Program Name Primary Diagnosis Admission Date/ Time Discharge Date/Time [place] [facility]patient [facility] Waiting ThuOct 21 10:40:00 EST 2018Nov 09 15:41:00 EST 2019 [place] Medically Supervised Opioid dependence, uncomplicated ThuOct 24 15:54:00 2019Oct 28 14:20:00 2019 [facility] Outpatient Waiting Opioid dependence, uncomplicated Sat Jul 06 16:36:00 EDT 2020 [place] Heroin use dis order, severe, dependence Sat Jul 06 17:57:00 EDT 2020 [place] IP Waiting ThuNov 19 10:30:00 EST 2020Nov [...] F ILM 1 Film Once SUBLINGUAL (EKIT) Sat Jul 06 21:00:00 EDT 2020Jul 06 20:25:00 EDT 2020 SUBOXONE (BUPRENORPHINE-NALOXONE) 4MG-1MG F ILM 1 Film Stat SUBLINGUAL (EKIT) ThuJul 06 18:52:00 EDT 2020Jul 06 18:57:00 EDT 2020 NICOTINE POLACRILEX 2 MG LOZENGE/JUDITH 3 Each TID: Three Times a Day ORAL Sat Jul 06 18:48:00 EDT 2020 [facility] 18:47:00 EDT 2020 NICODERM CQ (NICOTINE) 21 MG/24 HR PATCH, EX TENDED RELEASE 1 patch Daily As Needed TRANSDERMAL (Remove at HS. MDD 1 Patch) ThuJul 06 18:47:00 EDT 2020 [facility] Jul 08 18:46:00 EDT 2020 CLONIDINE HCL 0.1 MG TABLET 1 table t TIDPRN: Three Times A Day As Needed ORAL (SBP >110 HR>60Do not give within one (1) hour of hydroxyzine administration) Sat Jul 06 18:47:00 EDT 2020 [facility] 18:46:00 EDT 2020 NARCAN (NALOXONE HCL) 4 MG/0.1 ML SPRAY 1 spray(s) As Directed NASAL Sat Jul 06 18:47:00 EDT 2020 [place] Jul 07 18:46:00 EDT 2020 ONDANSETRON 4 MG TABLET 1 tablet TI DPRN: Three Times A Day As Needed ORAL Sat Jul 06 18:47:00 EDT 2020 [facility] 18:46 :00 EDT 2020 CALCIUM CARBONATE 500 MG TABLET, CHEWABLE 3 tablet TIDPRN: Three Times A Day As Needed ORAL Sat Jul 06 18:47:00 EDT 2020 [facility] Sep 18:46:00 EDT 2020 MULTIVITAMIN TABLET 1 tablet Daily ORAL Sat Jul 06 18:47:00 EDT 2020 Sat Sep 25 18:46:00 EDT 2020 MELATONIN 5 MG CAPSULE 1 capsule HS PRN: At Bedtime As Needed ORAL (MDD 5mg) Sat Jul 06 18:47:00 EDT 2020 Sat Sep 25 18:46:00 EDT 2020 IBUPROFEN 200 MG TABLET 3 tablet TI DPRN: Three Times A Day As Needed ORAL Sat Jul 06 18:47:00 EDT 2020 Sat Sep 25 18:46 :00 EDT 2020 FIBER-LAX 625 MG TABLET 2 tablet PA N: As Needed ORAL (MDD 4 Tabs) [facility] Jul 06:47:00 EDT 2020 [facility] 46 :00 EDT 2020 HYDROXYZINE HCL 25 MG TABLET 1 tabl et TIDPRN: Three Times A Day As Needed ORAL (Do not give within two (2) hours of Diphenhydramine or within one (1) hour of clonidine administration) [facility] Jul 06:47:00 EDT 2020 [facility] 02 24:46:00 EDT 2020 DOCUSATE SODIUM 100 MG CAPSULE, LIQUID FILLE D 1 capsule Daily As Needed ORAL Sat Jul 0647:00 EDT 2020 [facility] :46:00 EDT 2020 DIPHENHYDRAMINE HCL 25 MG CAPSULE 1 capsule TIDPRN: Three Times A Day As Needed ORAL Sat Jul 0647:00 EDT 2020 [facility] :46:00 EDT 2020 ACETAMINOPHEN 500 MG CAPSULE 2 caps ule Q6HPRN: Every 6 Hours As Needed ORAL (MDD 6 Tabs) [facility] Jul 0647:00 EDT 2020 [facility] :46:00 EDT 2020 PROAIR HFA (ALBUTEROL SULFATE) [...] A Day As Needed INHALATION ThuOct 26 06:00:00 2019Oct 27 10:01:00 2019 XOPENEX (LEVALBUTEROL HYDROCHLORIDE) 1.25 MG /3 ML SOLUTION 1 mL Stat INHALATION ThuOct 25 23:39:00 2019Nov 22 23:38:00 2020 BACTRIM DS (SULFAMETHOXAZOLE-T RIMETHOPRIM) 800MG-160MG TABLET 1 Tablet BID: Twice a Day ORAL ThuOct 25 06:00:2019Oct 28 14:43:2019 SUBOXONE (BUPRENORPHINE-NALOXONE) 8MG-2MG F ILM 1 Film Daily SUBLINGUAL ThuOct 26 06:00:2019Oct 28 14:43 :2019 NARCAN (NALOXONE HCL) 4 MG/0.1 ML SPRAY [...] capsule Daily As Needed ORAL ThuOct 24 17:01:2019Oct 28 14:43:00 2019 HYDROXYZINE HCL 25 MG TABLET 1 tabl et TIDPRN: Three Times A Day As Needed ORAL (Do not give within 2 hours of Diphenhydramine) ThuOct 24 17:01:2019Oct 28 14:43:00 2019 FIBER-LAX 625 MG TABLET 2 tablet PA N: As Needed ORAL (MDD 4 Tabs) [...] A Day As Needed ORAL ThuOct 24 17:01:00 2019Oct 28 14:43:00 2019 Problems No Known Problems Procedures No Known Procedures Social History Social History Observation Description Roly e Smoking Status Current Every Da y Smoker ThuOct 21::00 EST 2018 Smoking Status Current Every Da y Smoker ThuOct 21::00 EST 2018 Smoking Status Current Every Da [...] Current Every Da y Smoker ThuOct 21:00:00 2018 Sex Male Sat Sep 19 07:00:00 EST 1994 Vital Signs Vital Sign Measurement Date Temperature 97.3 [DEGF] ThuJul 08 05:31:00 EDT 2020 Temperature 36.3 ARA Mon [...] 9 06:16:00 EDT 2020 Temperature 98.7 [DEGF] [facility] Jun 28 20:06:00 EDT 2020 Temperature 37.1 ARA [facility] Jun 2 8 20:06:00 EDT 2020 Heart Rate 74 /MIN [facility] Jun 28 20:06:00 EDT 2020 Respiration 16 /MIN [facility] Jun 2 8 20:06:00 EDT 2020 SpO2 100 % [facility] Jun 28 20:06 :00 EDT 2020 Systolic 131 MM[HG] Sat Jun 28 2 0:06:00 EDT 2020 Diastolic 71 MM[HG] [facility] Jun 28 20:06:00 EDT 2020 BP Position 2 Position [facility] Jun 2 8 20:06:00 EDT 2020 Height 6 0.0 ft Sat Jun 28 20: 06:00 EDT 2020 Height 72 in Sat Jun 28 20: 06:00 EDT 2020 Height 182.9 cm Sat Aug 28 20: 06:00 ED2020 Weight Lbs 140 lbs [...] 21:48:00 EST 2020 Temperature 37.1 ARA Thu Dec 1 7 21:48:00 EST 2020 Heart Rate 16 /MIN Thu Dec 17 21:48:00 EST 2020 Respiration 16 /MIN Thu Dec 1 7 21:48:00 EST 2020 Systolic 136 MM[HG] [place] Dec 17 2 1:48:00 EST 2020 Diastolic 76 MM[HG] [place] Dec 17 21:48:00 EST 2020 BP Position 3 Position Thu Dec 1 7 21:48:00 EST 2020 Temperature 97.8 [...]
--- OUTSIDE RECORDS SUMMARY | 2021-09-08 17:37 | CCD ---
Author RAINE [facility] Address [address] [place] [address] Care Team Providers Care Machine Learning Intern Name Role Phone Serena Das Practitioner Shea Poole AdmittingPractitioner1 Shivani Weston Attphys Reza Vanegas Admphys Marizol Chavez AttendingPractitioner1 Functional Status No Results Allergies Name Onset Date Reaction Severity PCN (penicillin) (Allergy) ThuOct 24 07:00:00 EST 2019 Hives Encounters Program Name Primary Diagnosis Admission Date/ Time Discharge Date/Time [place] Medically Supervised Opioid dependence, uncomplicated ThuOct 24 15:54:00 EST 2019Oct 28 14:20:00 EST 2019 [place] MS Heroin use dis order, severe, dependence Sat Jul 06 17:57:00 EDT 2020 [place] IP Waiting ThuNov 19 10:30:00 EST 2020Nov 19 17:53:00 EST 2020 [place] [facility]patient [facility] Waiting ThuOct 21 10:40:00 EST [...] ORAL Sat Jul 06 18:48:00 EDT 2020 [facility] 18:47:00 EDT 2020 NICODERM CQ (NICOTINE) 21 MG/24 HR PATCH, EX TENDED RELEASE 1 patch Daily As Needed TRANSDERMAL (Remove at HS. MDD 1 Patch) ThuJul 06 18:47:00 EDT 2020 [facility] Jul 08 18:46:00 EDT 2020 CLONIDINE HCL 0.1 MG TABLET 1 table t TIDPRN: Three Times A Day As Needed ORAL (SBP >110 HR>60Do not give within one (1) hour of hydroxyzine administration) [facility] Jul 06 18:47:00 EDT 2020 [facility] 18:46:00 EDT 2020 NARCAN (NALOXONE HCL) 4 MG/0.1 ML SPRAY 1 spray(s) As Directed NASAL Sat Jul 06 18:47:00 EDT 2020 [place] Jul 07 18:46:00 EDT 2020 ONDANSETRON 4 MG TABLET 1 tablet TI DPRN: Three Times A Day As Needed ORAL Sat Jul 06 18:47:00 EDT 2020 [facility] 18:46 :00 EDT 2020 CALCIUM CARBONATE 500 MG TABLET, CHEWABLE 3 tablet TIDPRN: Three Times A Day As Needed ORAL Sat Jul 06 18:47:00 EDT 2020 [facility] Sep 18:46:00 EDT 2020 MULTIVITAMIN TABLET 1 tablet Daily ORAL Sat Jul 06 18:47:00 EDT 2020 [facility] Sep 18:46:00 EDT 2020 MELATONIN 5 MG CAPSULE 1 capsule HS PRN: At Bedtime As Needed ORAL (MDD 5mg) Sat Jul 06 18:47:00 EDT 2020 [facility] Sep 25 18:46:00 EDT 2020 IBUPROFEN 200 MG TABLET 3 tablet TI DPRN: Three Times A Day As Needed ORAL Sat Jul 06 18:47:00 EDT 2020 Sat Sep 25 18:46 :00 EDT 2020 FIBER-LAX 625 MG TABLET 2 tablet RI N: As Needed ORAL (MDD 4 Tabs) [facility] Jul 06:47:00 EDT 2020 [facility] 46 :00 EDT 2020 HYDROXYZINE HCL 25 MG TABLET 1 tabl et TIDPRN: Three Times A Day As Needed ORAL (Do not give within two (2) hours of Diphenhydramine or within one (1) hour of clonidine administration) [facility] Jul 06:47:00 EDT 2020 [facility] 02 24:46:00 EDT 2020 DOCUSATE SODIUM 100 MG CAPSULE, LIQUID FILLE D 1 capsule Daily As Needed ORAL [facility] Jul 0647:00 EDT 2020 [facility] 46: EDT 2020 DIPHENHYDRAMINE HCL 25 MG CAPSULE 1 capsule TIDPRN: Three Times A Day As Needed ORAL [facility] Jul 0647:00 EDT 2020 [facility] 46:00 EDT 2020 ACETAMINOPHEN 500 MG CAPSULE 2 caps ule Q6HPRN: Every 6 Hours As Needed ORAL (MDD 6 Tabs) [facility] Jul 0647:00 EDT 2020 [facility] :46:00 EDT 2020 PROAIR HFA (ALBUTEROL SULFATE) [...] 2019 FIBER-LAX 625 MG TABLET 2 tablet RI N: As Needed ORAL (MDD 4 Tabs) ThuOct 24 17:01:00 2019Oct 28 14:43 :00 2019 IBUPROFEN 200 MG [...] A Day As Needed ORAL ThuOct 24 17::00 2019Oct 28 14:43:00 2019 Problems No Known Problems Procedures No Known Procedures Social History Social History Observation Description Roly e Smoking Status Current Every Da y Smoker ThuOct 21:: EST 2018 Smoking Status Current Every Da y Smoker ThuOct 21::00 2018 Smoking Status Current Every Da y Smoker ThuOct 21::00 2018 Smoking Status Current Every Da y Smoker ThuOct 212018 Smoking Status Current Every Da y Smoker ThuOct 21 EST 2018 Smoking Status Current Every Da y Smoker ThuOct 2100 2018 Smoking Status Current Every Da y Smoker ThuOct 2100 2018 Smoking Status Current Every Da y Smoker ThuOct 212018 Smoking Status Current Every Da y Smoker ThuOct 21:00 2018 Smoking Status Current Every Da y Smoker ThuOct 21 07:00:00 EST 2018 Sex Male Sat Sep 19 07:00:00 EST 1994 Vital Signs Vital Sign Measurement Date Temperature 97.5 [DEGF] ThuJul 07 06:16:00 EDT 2020 Temperature 36.4 ARA Sun [...] 10:00:00 EST 2019 Heart Rate 72 /MIN Sun Dec 20 10:00:00 EST 2019 Respiration 14 [...] 13:56:00 EST 2020 Heart Rate 74 /MIN Fri Dec 18 13:56:00 EST 2020 Respiration 17 /MIN Thu 1 8 13:56:00 EST 2020 Systolic 103 MM[HG] Thu Dec 18 1 3:56:00 EST 2020 Diastolic 62 MM[HG] Thu 18 13:56:00 EST 2020 BP Position 3 [...] 07:21:00 EST 2020 BP Position 3 Position Thu 1 7 07:21:00 EST 2020 Temperature 98.2 [DEGF] Thu 16 19:12:00 EST 2020 Temperature 36.8 ARA ThuOct 09 6 19:12:00 EST 2020 Heart Rate 87 /MIN Thu 16 19:12:00 EST 2020 Respiration 18 /MIN ThuOct 09 6 19:12:00 EST 2020 Systolic 115 MM[HG] Thu 16 1 9:12:00 EST 2020 Diastolic 75 MM[HG] ThuOct 24 19:12:00 2019 Temperature 97.8 [DEGF] ThuOct 24 17:27:00 2019 Temperature 36.6 ARA ThuOct 09 17:27:00 2019 Heart Rate 91 /MIN ThuOct 24 17:27:00 2019 Respiration 16 /MIN ThuOct 09 17:27:00 2020 SpO2 99 % ThuOct 24 17:27 :00 2019 Systolic 107 MM[HG] ThuOct 24 7:27:00 2019 Diastolic 62 MM[HG] ThuOct 24 17:27:00 2020 BP Position 2 Position ThuOct 09 17:27:00 2019
--- OUTSIDE RECORDS SUMMARY | 2021-09-08 17:37 | CCD ---
Author RAINE Gibbons nerated Organization [facility] Address Unknown Phone Unavailable Care Team Providers Care Technology Trainer Name Role Phone Serena Das Practitioner Shea Poole Admphys Shivani Weston Attphys Reza Vanegas Admphys Marizol Chavez AttendingPractitioner1 Functional Status No Results Allergies Name Onset Date Reaction Severity PCN (penicillin) (Allergy) ThuOct 24 07:00:00 EST 2019 Hives Encounters Program Name Primary Diagnosis Admission Date/ Time Discharge Date/Time [place] Heroin use dis order, severe, dependence Sat Jul 06 17:57:00 EDT 2020 [place] Medically Supervised Opioid dependence, uncomplicated ThuOct 24 15:54:00 EST 2019Oct 28 14:20:00 2019 [facility]patient Waiting Opioid dependence, uncomplicated Sat Jul 06 16:36:00 EDT 2020 [place] Inpatient [facility] Waiting ThuOct 21 10:40:00 EST 2018Nov 09 15:41:00 2019 [place] IP Waiting ThuNov 19 10:30:00 EST 2020Nov 19 17:53:00 EST 2020 Immunizations No Known Immunizations Lab Results No Known Laboratory Results Medications Medication Directions Start Date End Date SUBOXONE (BUPRENORPHINE-NALOXONE) 4MG-1MG F ILM 1 Film Once SUBLINGUAL (EKIT) Sat Jul 06 21:00:00 EDT 2020Jul 06 20:25:00 EDT 2020 SUBOXONE (BUPRENORPHINE-NALOXONE) 4MG-1MG F ILM 1 Film Stat SUBLINGUAL (EKIT) ThuJul 06 18:52:00 EDT 2020 Sat Jul 06 18:57:00 EDT 2020 NICOTINE POLACRILEX 2 MG LOZENGE/JUDITH 3 Each TID: Three Times a Day ORAL Sat Aug 28 18:48:00 EDT 2020 [place] [address] :47:00 EDT 2020 NICODERM CQ (NICOTINE) 21 MG/24 HR PATCH, EX TENDED RELEASE 1 patch Daily As Needed TRANSDERMAL (Remove at HS. MDD 1 Patch) Sat Jul 06 18:47:00 EDT 2020 [facility] Jul 08 18:46:00 EDT 2020 CLONIDINE HCL 0.1 MG TABLET 1 table t TIDPRN: Three Times A Day As Needed ORAL (SBP >110 HR>60Do not give within one (1) hour of hydroxyzine administration) [facility] Jul 06:47:00 EDT 2020 [place] [address] :46:00 EDT 2020 NARCAN (NALOXONE HCL) 4 MG/0.1 ML SPRAY 1 spray(s) As Directed NASAL Sat Jul 0647:00 EDT 2020 [place] Jul 07:46:00 EDT 2020 ONDANSETRON 4 MG TABLET 1 tablet TI DPRN: Three Times A Day As Needed ORAL Sat Jul 0647:00 EDT 2020 [place] [address] :46 :00 EDT 2020 CALCIUM CARBONATE 500 MG TABLET, CHEWABLE 3 tablet TIDPRN: Three Times A Day As Needed ORAL Sat Jul 0647:00 EDT 2020 [place] [address] :46:00 EDT 2020 MULTIVITAMIN TABLET 1 tablet Daily ORAL Sat Jul 0647:00 EDT 2020 [place] [address] :46:00 EDT 2020 MELATONIN 5 MG CAPSULE 1 capsule HS PRN: At Bedtime As Needed ORAL (MDD 5mg) Sat Jul 06:47:00 EDT 2020 [place] [address] :46:00 EDT 2020 IBUPROFEN 200 MG TABLET 3 tablet TI DPRN: Three Times A Day As Needed ORAL Sat Jul 0647:00 EDT 2020 [place] [address] :46 :00 EDT 2020 FIBER-LAX 625 MG TABLET 2 tablet [place] N: As Needed ORAL (MDD 4 Tabs) ThuJul 0647:00 EDT 2020 [place] [address] :46 :00 EDT 2020 HYDROXYZINE HCL 25 MG TABLET 1 tabl et TIDPRN: Three Times A Day As Needed ORAL (Do not give within two (2) hours of Diphenhydramine or within one (1) hour of clonidine administration) [facility] Jul 06:47:00 EDT 2020 [facility] 04 18:46:00 EDT 2020 DOCUSATE SODIUM 100 MG CAPSULE, LIQUID FILLE D 1 capsule Daily As Needed ORAL ThuJul 06 18:47:00 ED2020 [facility] Sep :46:00 ED2020 DIPHENHYDRAMINE HCL 25 MG CAPSULE 1 capsule TIDPRN: Three Times A Day As Needed ORAL ThuJul 06:47:00 ED2020 Sat Sep 18:46:00 EDT 2020 ACETAMINOPHEN 500 MG CAPSULE 2 caps ule Q6HPRN: Every 6 Hours As Needed ORAL (MDD 6 Tabs) ThuJul 06:47:00 EDT 2020 [facility] 18:46:00 EDT 2020 PROAIR HFA (ALBUTEROL SULFATE) [...] BID: Twice a Day ORAL ThuOct 25 06:00:00 2019Oct 28 14:43:00 2019 SUBOXONE (BUPRENORPHINE-NALOXONE) 8MG-2MG F ILM 1 Film Daily SUBLINGUAL ThuOct 26 06:00:00 2019Oct 28 14:43 :2019 NARCAN (NALOXONE HCL) 4 [...] As Needed ORAL (MDD 6 Tabs) ThuOct 24:2019Oct 28 14:43:00 2019 BENADRYL ALLERGY (DIPHENHYDRAM INE HYDROCHLORIDE) 25 MG TABLET 1 tablet TIDPRN: Three Times A Day As Needed ORAL ThuOct 24::2019Oct 28 14:43:00 2019 CATAPRES (CLONIDINE HYDROCHLORIDE) 0.1 MG TA BLET 1 tablet TIDPRN: Three Times A Day As Needed ORAL (Systolic BP >110, HR>60) ThuOct 24::2019Oct 28 14:43:00 2019 COLACE (DOCUSATE SODIUM) 100 MG CAPSULE, LIQ UID FILLED 1 capsule Daily As Needed ORAL ThuOct 24::2019Oct 28 14:43:00 2019 HYDROXYZINE HCL 25 MG TABLET 1 tabl et TIDPRN: Three Times A Day As Needed ORAL (Do not give within 2 hours of Diphenhydramine) ThuOct 24:2019Oct 28 14:43:00 2019 FIBER-LAX 625 MG TABLET 2 tablet [place] N: As Needed ORAL (MDD 4 Tabs) ThuOct 24::2019Oct 28 14:43 :00 2019 IBUPROFEN 200 MG TABLET 3 tablet Da tiki As Needed ORAL (MDD 3200mg) ThuOct 24:2019Oct 28 14:43 :00 2019 MELATONIN 5 MG CAPSULE 1 capsule HS PRN: At Bedtime As Needed ORAL (MDD 5mg) ThuOct 24 17:01:2019Oct 28 14:43:00 2019 MULTIVITAMIN TABLET 1 tablet Daily ORAL ThuOct 24 17::2019Oct 28 14:43:00 2019 TUMS (CALCIUM CARBONATE) 500 [...] Current Every Da y Smoker ThuOct 21 07::00 EST 2018 Smoking Status Current Every Da y Smoker ThuOct 21 07::00 EST 2018 Smoking Status Current Every Da y Smoker ThuOct 21 07::00 EST 2018 Smoking Status Current Every Da y Smoker ThuOct 21 07::00 EST 2018 Smoking Status Current Every Da y Smoker ThuOct 21 07::00 EST 2018 Smoking Status Current Every Da y Smoker ThuOct 21 07::00 EST 2018 Smoking Status Current Every Da y Smoker ThuOct 21 07::00 EST 2018 Smoking Status Current Every Da y Smoker ThuOct 21 07::00 EST 2018 Smoking Status Current Every Da y Smoker ThuOct 21 07:00:00 EST 2018 Sex Male ThuSep 19 07:00:00 EST 1994 Vital Signs Vital Sign Measurement Date Temperature 98.7 [DEGF] ThuJul 06 20:06:00 EDT 2020 Temperature 37.1 ARA ThuJun 10 20:06:00 EDT 2020 Heart Rate 74 /MIN ThuJul 06 20:06:00 EDT 2020 Respiration 16 /MIN ThuJun 10 20:06:00 EDT 2020 SpO2 100 % Sat Jul 06 20:06 :00 EDT 2020 Systolic 131 MM[HG] Sat Jul 06 2 0:06:00 EDT 2020 Diastolic 71 MM[HG] Sat Jul 06 20:06:00 EDT 2020 BP Position 2 Position Sat Aug 2 8 20:06:00 ED2020 Height 6 0.0 ft ThuJul 06 20: 06:00 ED2020 Height 72 in Sat Jul 06 20: 06:00 ED2020 Height 182.9 cm ThuJul 06 20: 06:00 ED2020 Weight Lbs 140 lbs ThuJul 06 20:06:00 ED2020 Weight Kgs 63.6 KG ThuJul 06 20:06:00 ED2020 BMI 19 ThuJul 06 20:06: 00 EDT 2020 Temperature 97.6 [...] 13:56:00 EST 2020 BP Position 3 Position Fri Dec 1 8 13:56:00 EST 2020 Temperature 97.7 [DEGF] Thu Dec 18 06:02:00 EST 2020 Temperature 36.5 ARA Fri Dec 1 8 06:02:00 EST 2020 Heart Rate 73 /MIN Thu Dec 18 06:02:00 EST 2020 Respiration 16 /MIN Thu Dec 1 8 06:02:00 EST 2020 Systolic 107 MM[HG] Fri Dec 18 0 6:02:00 EST 2020 Diastolic 61 MM[HG] Fri Dec 18 06:02:00 EST 2020 BP Position 2 Position Fri Dec 1 8 06:02:00 EST 2020 Temperature [...] 2020 BP Position 3 Position [place] Oct 1 7 21:48:00 EST 2020 Temperature 97.8 [...] 7:27:00 EST 2020 Diastolic 62 MM[HG] Thu Dec 16 17:27:00 EST 2020 BP Position 2 Position ThuOct 09 6 17:27:00 EST 2020
--- OUTSIDE RECORDS SUMMARY | 2021-09-08 17:37 | CCD ---
Author RAINE Gibbons nerated Organization [facility] Address Unknown Phone Unavailable Care Team Providers Care Citizen Participation Specialist Name Role Phone Serena Das Practitioner Shea Poole Admphys Shivani Weston Attphys Reza Vanegas Admphys Marizol Chavez AttendingPractitioner1 Functional Status No Results Allergies Name Onset Date Reaction Severity PCN (penicillin) (Allergy) ThuOct 24 07:00:00 2019 Hives Encounters Program Name Primary Diagnosis Admission Date/ Time Discharge Date/Time [place] Medically Supervised Opioid dependence, uncomplicated ThuOct 24 15:54:00 EST 2019Oct 28 14:20:00 2019 [place] Heroin use dis order, severe, dependence Sat Jul 06 17:57:00 EDT 2020Jul 09 13:10:00 EDT 2020 [place] IP Waiting ThuNov 19 10:30:00 EST 2020Nov 19 17:53:00 EST 2020 [place] [facility]patient Re[facility] Waiting ThuOct 21 10:40:00 2018Nov [...] 2020 FIBER-LAX 625 MG TABLET 2 tablet [place] N: As Needed ORAL (MDD 4 Tabs) [...] ORAL ThuOct 24 17:2019Oct 28 14:43:00 2019 HYDROXYZINE HCL 25 MG TABLET 1 tabl et TIDPRN: Three Times A Day As Needed ORAL (Do not give within 2 hours of Diphenhydramine) ThuOct 24 17::2019Oct 28 14:43:00 2019 FIBER-LAX 625 MG TABLET 2 tablet [place] N: As Needed ORAL (MDD 4 Tabs) [...] Current Every Da y Smoker ThuOct 21:00 EST 2018 Smoking Status Current Every Da [...] EDT 2020 Systolic 104 MM[HG] ThuJul 09 3:17:00 EDT 2020 Diastolic 61 MM[HG] ThuJul [...] 08 05:31:00 EDT 2020 Respiration 16 /MIN Mon [...] 9 20:15:00 EDT 2020 Systolic 110 MM[HG] Thu 29 2 0:15:00 EDT 2020 Diastolic 69 [...] 9 06:16:00 EDT 2020 Temperature 98.7 [DEGF] [facility] Jul 06 20:06:00 EDT 2020 Temperature 37.1 ARA [facility] Jun 2 8 20:06:00 EDT 2020 Heart Rate 74 /MIN [facility] Jun 28 20:06:00 EDT 2020 Respiration 16 /MIN [facility] Jun 2 8 20:06:00 EDT [...] EST 2020 BP Position 3 Position [place] Dec 1 7 21:48:00 EST 2020 Temperature [...]
--- OUTSIDE RECORDS SUMMARY | 2021-09-08 17:38 | CCD ---
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 cholesterol risk ratio <5 Cholesterol R isk Ratio [facility] ([facility]) HDL cholesterol 65 mg/dL >40 HDL Cholesterol ATHE ([facility]) Cholesterol in LDL [Mass/volume] in Serum or Plasma 71 mg/dL <1 00 LDL Cholesterol [facility] ([facility]) non-HDL-C 80 mg/dL Non-hdl-c [facility] ([facility]) ID Date Data Source [id number] 03/11/2021 11:19:00 AM EDT [facility]) Name Value Range Interpretation Code Description Data Hedy rce(s) Supporting Document(s) creatinine for GFR 0.83 mg/dL 0.70-1.30 Creatinine for GF R [facility] ([facility]) blood urea nitrogen 11 mg/dL 7-18 Blood Urea Nitro gen [facility] ([facility]) glucose, fasting 88 mg/dL 70-100 Glucose, Fasting AT ISHMAEL ([facility]) glomerular filtration rate > 60.0 >60 Glomerula r Filtration Rate [facility] ([facility]) sodium level 141 mEq/L 136-145 Sodium Level [facility] ([facility]) potassium serum 4.6 mEq/L 3.5-5.1 Potassium Serum ATHE NA ([facility]) chloride level 106 mEq/L 98-107 Chloride Level [facility] ([facility]) calcium level 9.2 mg/dL 8.5-10.1 Calcium Level [facility] ( [facility]) anion gap 2 mEq/L 8-16 Below low normal Anion Gap [facility] ( [facility]) AST/SGOT 81 U/L 7-37 Above high normal AST/SGOT [facility] ([facility]) carbon dioxide level 33 mEq/L 21-32 Above high normal Carbon D ioxide Level [facility] ([facility]) ALT/SGPT 162 U/L 12-78 Above high normal ALT/SGPT [facility] ([facility]) total protein 7.9 gm/dL 6.4-8.2 Total Protein [facility] ( [facility]) alkaline phosphatase 88 U/L 45-117 Alkaline Phosph atase [facility] ([facility]) bilirubin,total 0.5 mg/dL 0.2-1.0 Bilirubin,total ATHE ([facility]) albumin 3.8 gm/dL 3.2-5.2 Albumin [facility] ([facility]) albumin/globulin ratio Albumin/globu dali Ratio [facility] ([facility]) ID Date Data Source [id number] 03/11/2021 11:19:00 AM EDT [facility] ([facility]) Name Value Range Interpretation Code Description Data Hedy rce(s) Supporting Document(s) red blood count 4.76 10 4.30-6.10 Red Blood Count ATHE ([facility]) white blood count 7.7 10 4.0-10.0 White Blood Count [facility] ([facility]) mean corpuscular volume 99.2 fL 80.0-96.0 Above high normal Mean Corpuscular Volume [facility] ([facility]) hematocrit 47.2 % 42.0-52.0 Hematocrit [facility] ([facility]) hemoglobin 14.9 g/dL 13.5-17.5 Hemoglobin [facility] ([facility]) red cell distribution width 12.3 % 11.5-14.5 Red Cell Distribution Width [facility] ([facility]) mean corpuscular HGB conc 31.6 g/dL 32.0-36.5 Below low shane l Mean Corpuscular HGB Conc [facility] ([facility]) mean corpuscular hemoglobin 31.3 pg 27.0-33.0 Mean Cor puscular Hemoglobin [facility] ([facility]) lymph % 17.3 % 24.0-44.0 Below low normal Lymph % [facility] ( [facility]) platelet count, automated 335 10 150-450 Platelet C ount, Automated [facility] ([facility]) neutrophils % 71.2 % 36.0-66.0 Above high normal Neutrophils % A THENA ([facility]) immature granulocyte % 0.3 % 0-3.0 Immature Gran ulocyte % [facility] ([facility]) mono % 8.9 % 2.0-8.0 Above high normal [place] % [facility] ([facility]) eos % 1.6 % 0.0-3.0 Eos % [facility] ([facility]) baso % 0.7 % 0.0-1.0 Baso % [facility] ([facility]) lymph # 1.3 10 1.5-5.0 Below low normal Lymph # [facility] ( [facility]) nucleated red blood cell % 0.0 % 0-0 Nucleated Red Blood Cell % [facility] ([facility]) neutrophils # 5.5 10 1.5-8.5 Neutrophils # [facility] ( [facility]) mono # 0.7 10 0.0-0.8 [place] # [facility] ([facility]) eos # 0.1 10 0.0-0.5 Eos # [facility] ([facility]) baso # 0.1 10 0.0-0.2 Baso # [facility] ([facility]) ID Date Data Source [id number] 11/01/2020 05:21:00 PM EST [facility] Name Value Range Interpretation Code Description Data Hedy rce(s) Supporting Document(s) HIV 1/2 Ab p24 Ag Screen Nonreactive Normal (applies to non-numeric results) [facility] ID Date Data Source [id number] 11/01/2020 10:54:00 AM [facility] Value Range Interpretation Code Description Data Hedy rce(s) Supporting Document(s) Hep C Ab-T Test Nonreactive Normal (applies to non-numeric results) [facility] ID Date Data Source [id number] 11/01/2020 10:54:00 AM [facility] Value Range Interpretation Code Description Data Hedy rce(s) Supporting Document(s) Hep Bs Ag Result T-Test Nonreactive Normal (applies to non -numeric results) [facility] ID Date Data Source [id number] 11/01/2020 10:54:00 AM [facility] Value Range Interpretation Code Description Data Hedy rce(s) Supporting Document(s) HAVM Nonreactive Normal (applies to non-numeric resu lts) [facility] ID Date Data Source [id number] 11/01/2020 10:54:00 AM [facility] Value Range Interpretation Code Description Data Hedy rce(s) Supporting Document(s) Vitamin D,Total (25OH) 30.0-100.0 Below low normal [facility] Reference Range: <10 ng/mL: Deficien t 10-30 ng/mL: Insufficient 30-100 ng/mL: Sufficient >100 ng/mL: Toxicity possible ID Date Data Source [id number] 11/01/2020 10:54:00 AM [facility] Value Range Interpretation Code Description Data Hedy rce(s) Supporting Document(s) Syphilis Serology Nonreactive Normal (applies to non-numer ic results) [facility] ID Date Data Source [id number] 11/01/2020 10:01:00 AM [facility] Value Range Interpretation Code Description Data Hedy rce(s) Supporting Document(s) Sodium 139 mmol/L 137-145 Normal (applies to non-numeric resul ts) [facility] Potassium 3.5-5.1 Normal (applies to non-numeric resul ts) [facility] Chloride 106 mmol/L 98-112 Normal (applies to non-numeric resul ts) [facility] Carbon Dioxide CO2 22.0-33.0 Normal (applies to non-numer ic results) [facility] Anion Gap 4.0-11.0 Normal (applies to non-numeric resul ts) [facility] BUN 17 mg/dL 9-20 Normal (applies to non-numeric resul ts) [facility] Creatinine 0.80-1.50 Normal (applies to non-numeric resul ts) [facility] GFR 88 mL/min >60 Normal (applies to non-numeric resul ts) [facility] Result based on MDRD formula. Glucose Level 110 mg/dL 74-99 Above high normal [facility] The reference range is only applicable w hen fasting. Calcium-Uncorrected 8.4-10.2 Normal (applies to non-nume iza results) [facility] Corrected Calcium 8.4-10.2 Normal (applies to non-numeri c results) [facility] Bilirubin,Total 0.2-1.3 Normal (applies to non-numeric results) [facility] Bilirubin,Direct 0.0-0.3 Normal (applies to non-numeric results) [facility] SGOT(AST) 79 U/L 17-59 Above high normal [facility] SGPT(ALT) 51 U/L 21-72 Normal (applies to non-numeric resul ts) [facility] Alkaline Phosphatase 71 U/L 38-126 Normal (applies to non-num zeb results) [facility] can increase Alkaline Phosp le vels up to 2 times the normal adult value. Normal values for children and adolescents are 2 to 3 times the normal adult value. CPK 695 U/L 39-308 Above high normal [facility] Total Protein 6.3-8.2 Normal (applies to non-numeric re sults) [facility] Albumin 3.5-5.0 Normal (applies to non-numeric resul ts) [facility] Thyroid Stimulate Hormone TSH 0.358-3.740 No rmal (applies to non-numeric results) [facility] ID Date Data Source [id number] 11/01/2020 10:01:00 AM EST [facility] Name Value Range Interpretation Code Description Data Hedy rce(s) Supporting Document(s) Magnesium 1.80-2.40 Normal (applies to non-numeric resul ts) [facility] ID Date Data Source [id number] 11/01/2020 10:01:00 AM EST [facility] Name Value Range Interpretation Code Description Data Hedy rce(s) Supporting Document(s) C-Reactive Protein,Wide Range <3.00 Above high normal [facility] ID Date Data Source [id number] 11/01/2020 09:31:00 AM EST [facility] Name Value Range Interpretation Code Description Data Hedy rce(s) Supporting Document(s) White Blood Count 4.8-10.8 Normal (applies to non-numeri c results) [facility] Red Blood Count 4.35-6.08 Normal (applies to non-numeric results) [facility] Hemoglobin 13.0-17.5 Normal (applies to non-numeric resul ts) [facility] Hematocrit 37.7-51.0 Normal (applies to non-numeric resul ts) [facility] Mean Corpuscular Volume 80-94 Normal (applies to non- numeric results) [facility] Mean Corpuscular Hemoglobin 27.0-33.0 Normal (appli es to non-numeric results) [facility] Mean Corpuscular HGB Conc 32.0-36.0 Normal (applies to no n-numeric results) [facility] Red Cell Distribution Width 11.5-14.5 Normal (appli es to non-numeric results) [facility] Platelet Count 207 X10 3/uL 130-450 Normal (applies to non-numeric results) [facility] Mean Platelet Volume 9.6-13.1 Normal (applies to non-num zeb results) [facility] Imm Grans% (AUTO) 0 % 0-2 Normal (applies to non-numeri c results) [facility] Neutrophils % (AUTO) 52 % 40-75 Normal (applies to non-num zeb results) [facility] Lymphocytes % (AUTO) 29 % 21-46 Normal (applies to non-num zeb results) [facility] Monocytes % (AUTO) 11 % 5-12 Normal (applies to non-numer ic results) [facility] Eosinophils % (AUTO) 7 % 1-5 Above high normal [facility] Basophils % (AUTO) 1 % 0-1 Normal (applies to non-numer ic results) [facility] Imm Grans# (AUTO) 0.0-0.5 Normal (applies to non-numeri c results) [facility] Neutrophils # (AUTO) 1.5-8.1 Normal (applies to non-num zeb results) [facility] Lymphocytes # (AUTO) 1.0-3.1 Normal (applies to non-num zeb results) [facility] Monocytes # (AUTO) 0.2-1.3 Normal (applies to non-numer ic results) [facility] Eosinophils# (AUTO) 0.0-0.5 Normal (applies to non-nume iza results) [facility] Basophils # (AUTO) 0.0-0.1 Normal (applies to non-numer ic results) [facility] ID Date Data Source [id number] 11/07/2020 02:28:00 PM EST [facility] Name Value Range Interpretation Code Description Data Hedy rce(s) Supporting Document(s) Cannabinoids Confirm,Ur result . Very abnor mal (applies to non-numeric units [facility] Carboxy THC GC/MS Conf 92 ng/mL Cutoff=10 01 Performed at: [address] [id number] Speech Professor: Dari Daniel MD, Phone: [phone] ID Date Data Source [id number] 10/31/2020 09:06:00 PM EST [facility] Name Value Range Interpretation Code Description Data Hedy rce(s) Supporting Document(s) Opiate Screen,Urine Negative Normal (applies to non-nume iza results) [facility] Amphetamine Screen,Urine Negative [place] [facility] Benzodiazepines Scrn,Ur result Negative N ormal (applies to non-numeric results) [facility] Cocaine Screen,Urine Negative Normal (applies to non-num zeb results) [facility] Methadone Screen,Urine Negative Normal (applies to non-n umeric results) [facility] Cannabinoid Screen, Ur Negative [place] [facility] Therapeutic Drug Ranges for Emergency an d Rehabilitation Threshold Levels (ng/mL) Cocaine 300 Opiates 300 Cannabinoids 50 Barbiturates 200 Benzodiazepine 200 Methadone 300 Amphetamines 1000 All positive findings are presumptive and unconfirmed. Confirmation of positive results are performed only at request of provider. Unconfirmed results must not be used for non-medical purposes (i.e. pre-employment and legal purposes) ID Date Data Source [id number] 10/31/2020 06:32:[address] [facility] Name Value Range Interpretation Code Description Data Hedy rce(s) Supporting Document(s) Respiratory specimen severe acute respir atory syndrome coronavirus 2 (SARS-CoV-2) RNA [facility] This lab was ordered by [facility] marissa and reported by [facility]. ID Date Data Source [id number] 10/31/2020 06:18:00 PM EST [facility] Name Value Range Interpretation Code Description Data Hedy rce(s) Supporting Document(s) SARS-CoV-2 RNA Negative Normal (applies to non-numeric r esults) [facility] Negative results should be treated as pr esumptive and, if inconsistent with clinical signs and symptoms or necessary for patient management, should be tested with different authorized or cleared molecular tests. Negative results do not preclude SARS-CoV-2 infection and should not be used as the sole basis for patient management decisions. Negative results should be considered in the context of a patients recent exposures, history and the presence of clinical signs and symptoms consistent with COVID-19. This test has not been FDA cleared or approved; this test has been authorized by FDA under an Emergency Use Authorization for use by laboratories certified under the Clinical Laboratory Improvement Amendments of 1988 (CLIA), 42 U.S.C. 263a, to perform moderate complexity/high complexity tests and at the Point of Care (POC), i.e., in patient care settings operating under a CLIA Certificate of Waiver, Certificate of Compliance, or Certificate of Accreditation. Factsheets for healthcare providers: https://www.fda.gov/media/516818/download Factsheets for patients: https://www.fda.gov/media/336172/download The ID NOW Instrument is a rapid molecular in vitro diagnostic test utilizing an isothermal nucleic acid amplification technology intended for the qualitative detection of nucleic acid from the SARS-CoV-2 viral RNA. THIS IS A STATE REPORTABLE COMMUNICABLE DISEASE. Manual entry verified by Tessie Goodwin 10/31/20 1817 ID Date Data Source [id number] 10/31/2020 11:55:00 PM EST [facility] Name Value Range Interpretation Code Description Data Hedy rce(s) Supporting Document(s) Color,Urine Yellow Normal (applies to non-numeric resu lts) [facility] Clarity,Urine Clear Normal (applies to non-numeric re sults) [facility] Specific [place],Urine 1.001-1.030 Normal (applies to non- numeric results) [facility] PH,Urine 5.0-8.0 Normal (applies to non-numeric resul ts) [facility] Protein,Urine Negative Normal (applies to non-numeric re sults) [facility] Glucose,Urine (UA) Negative Normal (applies to non-numer ic results) [facility] Ketones,Urine Negative [facility] ospital Blood,Urine Negative Normal (applies to non-numeric resu lts) [facility] Bilirubin,Urine Negative Normal (applies to non-numeric results) [facility] Urobilinogen,Urine Norm 0.2-1 Normal (applies to non-numer ic results) [facility] Leukocyte Esterase,Urine Negative Normal (applies to non -numeric results) [facility] Nitrite,Urine Negative Normal (applies to non-numeric re sults) [facility] Procedure Social History No Information Vital Signs ID Date Data Source [id number] Name Value Range Interpretation Code Description Data Source(s) Systolic blood pressure 104.0 MM[HG] 104.0 MM[H G] NETSMART ([facility]) Diastolic blood pressure 61.0 MM[HG] 61.0 MM[HG ] NETSMART ([facility]) Heart rate 94.0 /MIN 94.0 /MIN NETSMART ([facility]) Respiratory rate 16.0 /MIN 16.0 /MIN NETSMART ([facility]) Body temperature 97.7 [DEGF] 97.7 [DEGF] NETSMA RT ([facility]) Systolic blood pressure 117.0 MM[HG] 117.0 MM[H G] NETSMART ([facility]) Body temperature 36.5 ARA 36.5 ARA NETSMART ([facility]) Diastolic blood pressure 62.0 MM[HG] 62.0 MM[HG ] NETSMART ([facility]) Heart rate 64.0 /MIN 64.0 /MIN [facility]SMART ([facility]) Body temperature 97.8 [DEGF] 97.8 [DEGF] NETSMA RT ([facility]) Body temperature 36.6 ARA 36.6 ARA NETSMART ([facility]) Heart rate 90.0 /MIN 90.0 /MIN [facility]SMART ([facility]) Respiratory rate 16.0 /MIN 16.0 /MIN NETSMART ([facility]) Systolic blood pressure 110.0 MM[HG] 110.0 MM[H G] NETSMART ([facility]) Diastolic blood pressure 66.0 MM[HG] 66.0 MM[HG ] NETSMART ([facility]) Body temperature 36.3 ARA 36.3 ARA NETSMART ([facility]) Heart rate 64.0 /MIN 64.0 /MIN NETSMART ([facility]) Body temperature 97.3 [DEGF] 97.3 [DEGF] NETSMA RT ([facility]) Systolic blood pressure 118.0 MM[HG] 118.0 MM[H G] NETSMART ([facility]) Respiratory rate 16.0 /MIN 16.0 /MIN NETSMART ([facility]) Diastolic blood pressure 69.0 MM[HG] 69.0 MM[HG ] NETSMART ([facility]) Heart rate 86.0 /MIN 86.0 /MIN [facility]SMART ([facility]) Systolic blood pressure 110.0 MM[HG] 110.0 MM[H G] NETSMART ([facility]) Diastolic blood pressure 69.0 MM[HG] 69.0 MM[HG ] NETSMART ([facility]) Respiratory rate 17.0 /MIN 17.0 /MIN NETSMART ([facility]) Respiratory rate 16.0 /MIN 16.0 /MIN NETSMART ([facility]) Systolic blood pressure 120.0 MM[HG] 120.0 MM[H G] NETSMART ([facility]) Diastolic blood pressure 64.0 MM[HG] 64.0 MM[HG ] NETSMART ([facility]) Heart rate 71.0 /MIN 71.0 /MIN [facility]SMART ([facility]) Body temperature 97.5 [DEGF] 97.5 [DEGF] NETSMA RT ([facility]) Body temperature 36.4 ARA 36.4 ARA NETSMART ([facility]) Body temperature 37.1 ARA 37.1 ARA NETSMART ([facility]) Heart rate 74.0 /MIN 74.0 /MIN [facility]SMART ([facility]) Body temperature 98.7 [DEGF] 98.7 [DEGF] NETSMA RT ([facility]) Body weight 63.6 KG 63.6 KG [facility] ([facility]) Diastolic blood pressure 71.0 MM[HG] 71.0 MM[HG ] NETSMART ([facility]) Body mass index (BMI) [Ratio] 19.0 19.0 [facility]SMART ([facility]) Body height 182.9 cm 182.9 cm [facility] ([facility]) Systolic blood pressure 131.0 MM[HG] 131.0 MM[H G] NETSMART ([facility]) Respiratory rate 16.0 /MIN 16.0 /MIN NETSMART ([facility]) Oxygen saturation in Arterial blood by Pulse oximetry 100.0 % 100.0 % NETSMART ([facility]) Respiratory rate 12 /min 12 /min [facility] ( [facility]) [place] body weight 178 [lb_av] 178 [lb_av] [facility] Body height 72 [in_i] 72 [in_i] [facility] ([facility]) 6'0" Body weight 145.00 [lb_av] 145.00 [lb_av] [facility] ([facility], ) Body mass index (BMI) [Ratio] 19.7 kg/m2 19.7 k g/m2 [facility] ([facility]) Body height 72 [in_i] 72 [in_i] [facility] ([facility]) Diastolic blood pressure 62 mm[Hg] 62 mm[Hg] [facility] ([facility]) Body height 72 [in_i] 72 [in_i] [facility] ([facility]) Body mass index (BMI) [Ratio] 19.4 kg/m2 19.4 k g/m2 [facility] ([facility]) Systolic blood pressure 98 mm[Hg] 98 mm[Hg] A KATIE ([facility]) Body weight 2290 [oz_av] 2290 [oz_av] [facility] ([facility]) Diastolic blood pressure 62 mm[Hg] 62 mm[Hg] [facility] ([facility]) Body height 72 [in_i] 72 [in_i] [facility] ([facility]) Body mass index (BMI) [Ratio] 19.4 kg/m2 19.4 k g/m2 [facility] ([facility]) Systolic blood pressure 98 mm[Hg] 98 mm[Hg] A KATIE ([facility]) Body weight 2290 [oz_av] 2290 [oz_av] [facility] ([facility]) Heart rate 72.0 /MIN 72.0 /MIN [facility]SM[facility] ([facility]) Body temperature 36.4 ARA 36.4 ARA NETSMART ([facility]) Respiratory rate 14.0 /MIN 14.0 /MIN NETSMART ([facility]) Systolic blood pressure 122.0 MM[HG] 122.0 MM[H G] NETSMART ([facility]) Diastolic blood pressure 68.0 MM[HG] 68.0 MM[HG ] NETSMART ([facility]) Body temperature 97.6 [DEGF] 97.6 [DEGF] NETSMA RT ([facility]) Body temperature 36.6 ARA 36.6 ARA NETSMART ([facility]) Heart rate 92.0 /MIN 92.0 /MIN [facility]SM[facility] ([facility]) Respiratory rate 17.0 /MIN 17.0 /MIN [facility]SM[facility] ([facility]) Systolic blood pressure 114.0 MM[HG] 114.0 MM[H G] NETSMART ([facility]) Diastolic blood pressure 74.0 MM[HG] 74.0 MM[HG ] NETSMART ([facility]) Body temperature 97.8 [DEGF] 97.8 [DEGF] NETSMA RT ([facility]) Body temperature 98.2 [DEGF] 98.2 [DEGF] NETSMA RT ([facility]) Body temperature 36.8 ARA 36.8 ARA NETSMART ([facility]) Respiratory rate 16.0 /MIN 16.0 /MIN NETSMART ([facility]) Systolic blood pressure 119.0 MM[HG] 119.0 MM[H G] NETSMART ([facility]) Diastolic blood pressure 68.0 MM[HG] 68.0 MM[HG ] NETSMART ([facility]) Heart rate 79.0 /MIN 79.0 /MIN NETSMART ([facility]) Body temperature 97.5 [DEGF] 97.5 [DEGF] NETSMA RT ([facility]) Body temperature 36.4 ARA 36.4 ARA NETSMART ([facility]) Heart rate 64.0 /MIN 64.0 /MIN NETSMART ([facility]) Respiratory rate 16.0 /MIN 16.0 /MIN NETSMART ([facility]) Systolic blood pressure 107.0 MM[HG] 107.0 MM[H G] NETSMART ([facility]) Diastolic blood pressure 60.0 MM[HG] 60.0 MM[HG ] NETSMART ([facility]) Systolic blood pressure 113.0 MM[HG] 113.0 MM[H G] NETSMART ([facility]) Respiratory rate 16.0 /MIN 16.0 /MIN NETSMART ([facility]) Diastolic blood pressure 63.0 MM[HG] 63.0 MM[HG ] NETSMART ([facility]) Heart rate 53.0 /MIN 53.0 /MIN NETSMART ([facility]) Body temperature 37.1 ARA 37.1 ARA NETSMART ([facility]) Heart rate 74.0 /MIN 74.0 /MIN NETSMART ([facility]) Body temperature 98.7 [DEGF] 98.7 [DEGF] NETSMA RT ([facility]) Systolic blood pressure 103.0 MM[HG] 103.0 MM[H G] NETSMART ([facility]) Diastolic blood pressure 62.0 MM[HG] 62.0 MM[HG ] NETSMART ([facility]) Respiratory rate 17.0 /MIN 17.0 /MIN NETSMART ([facility]) Body temperature 98.7 [DEGF] 98.7 [DEGF] NETSMA RT ([facility]) Heart rate 74.0 /MIN 74.0 /MIN NETSMART ([facility]) Systolic blood pressure 103.0 MM[HG] 103.0 MM[H G] NETSMART ([facility]) Body temperature 37.1 ARA 37.1 ARA NETSMART ([facility]) Respiratory rate 17.0 /MIN 17.0 /MIN NETSMART ([facility]) Diastolic blood pressure 62.0 MM[HG] 62.0 MM[HG ] NETSMART ([facility]) Heart rate 73.0 /MIN 73.0 /MIN NETSMART ([facility]) Respiratory rate 16.0 /MIN 16.0 /MIN NETSMART ([facility]) Systolic blood pressure 107.0 MM[HG] 107.0 MM[H G] NETSMART ([facility]) Body temperature 97.7 [DEGF] 97.7 [DEGF] NETSMA RT ([facility]) Diastolic blood pressure 61.0 MM[HG] 61.0 MM[HG ] NETSMART ([facility]) Body temperature 36.5 ARA 36.5 ARA NETSMART ([facility]) Heart rate 16.0 /MIN 16.0 /MIN NETSMART ([facility]) Body temperature 98.7 [DEGF] 98.7 [DEGF] NETSMA RT ([facility]) Respiratory rate 16.0 /MIN 16.0 /MIN NETSMART ([facility]) Systolic blood pressure 136.0 MM[HG] 136.0 MM[H G] NETSMART ([facility]) Diastolic blood pressure 76.0 MM[HG] 76.0 MM[HG ] NETSMART ([facility]) Body temperature 37.1 ARA 37.1 ARA NETSMART ([facility]) Respiratory rate 16.0 /MIN 16.0 /MIN NETSMART ([facility]) Systolic blood pressure 112.0 MM[HG] 112.0 MM[H G] NETSMART ([facility]) Body temperature 97.8 [DEGF] 97.8 [DEGF] NETSMA RT ([facility]) Body temperature 36.6 ARA 36.6 ARA NETSMART ([facility]) Heart rate 82.0 /MIN 82.0 /MIN NETSMART ([facility]) Diastolic blood pressure 70.0 MM[HG] 70.0 MM[HG ] NETSMART ([facility]) Body temperature 36.8 ARA 36.8 ARA NETSMART ([facility]) Heart rate 87.0 /MIN 87.0 /MIN NETSMART ([facility]) Respiratory rate 18.0 /MIN 18.0 /MIN NETSMART ([facility]) Systolic blood pressure 115.0 MM[HG] 115.0 MM[H G] NETSMART ([facility]) Diastolic blood pressure 75.0 MM[HG] 75.0 MM[HG ] NETSMART ([facility]) Body temperature 98.2 [DEGF] 98.2 [DEGF] NETSMA RT ([facility]) Heart rate 91.0 /MIN 91.0 /MIN NETSMART ([facility]) Body temperature 36.6 ARA 36.6 ARA NETSMART ([facility]) Respiratory rate 16.0 /MIN 16.0 /MIN NETSMART ([facility]) Systolic blood pressure 107.0 MM[HG] 107.0 MM[H G] NETSMART ([facility]) Body temperature 97.8 [DEGF] 97.8 [DEGF] NETSMA RT ([facility]) Diastolic blood pressure 62.0 MM[HG] 62.0 MM[HG ] NETSMART ([facility]) Oxygen saturation in Arterial blood by Pulse oximetry 99.0 % 99.0 % NETSMART ([facility]) ID Date Data Source [id number] 11/16/2020 09:35:00 AM EST [facility] Name Value Range Interpretation Code Description Data Source(s) Weight Measurement Method 1 1 [facility] Weight (Calculated Kilograms) 59.42 59.42 [facility] Weight 20956 [facility] Temperature Source 7 7 [facility] Temperature 97.6 97.6 [facility] Respiratory Effort 1 1 [facility] Respiratory Rate 16 16 [facility] Pulse Assessment Method 4 4 [facility] Pulse Rate 66 66 [facility] Height (Calculated Centimeters) 180.34 180. 34 [facility] Height 71 71 [facility] Blood Pressure 130/55 130/55 [facility] Body Mass Index (BMI) 18.2 18.2 [facility] Weight Measurement Method 1 1 [facility] Weight (Calculated Kilograms) 59.42 59.42 [facility] Weight 2095 2095 [facility] Temperature Source 7 7 [facility] Temperature 97.6 97.6 [facility] Respiratory Effort 1 1 [facility] Respiratory Rate 16 16 [facility] Pulse Assessment Method 4 4 [facility] Pulse Rate 66 66 [facility] Height (Calculated Centimeters) 180.34 180. 34 [facility] Height 71 71 [facility] Blood Pressure 130/55 130/55 [facility] Body Mass Index (BMI) 18.2 18.2 [facility] Weight Measurement Method 1 1 [facility] Weight (Calculated Kilograms) 59.42 59.42 [facility] Weight 2095 2095 [facility] Temperature Source 7 7 [facility] Temperature 97.6 97.6 [facility] Respiratory Effort 1 1 [facility] Respiratory Rate 16 16 [facility] Pulse Assessment Method 4 4 [facility] Pulse Rate 66 66 [facility] Height (Calculated Centimeters) 180.34 180. 34 [facility] Height 71 71 [facility] Blood Pressure 130/55 130/55 [facility] Body Mass Index (BMI) 18.2 18.2 [facility] Weight Measurement Method 1 1 [facility] Weight (Calculated Kilograms) 59.42 59.42 [facility] Weight 2095 2095 [facility] Temperature Source 7 7 [facility] Temperature 96.7 96.7 [facility] Respiratory Effort 1 1 [facility] Respiratory Rate 16 16 [facility] Pulse Assessment Method 4 4 [facility] Pulse Rate 49 49 [facility] Height (Calculated Centimeters) 180.34 180. 34 [facility] Height 71 71 [facility] Blood Pressure 96/56 96/56 [facility] Body Mass Index (BMI) 18.2 18.2 [facility] Weight Measurement Method 1 1 [facility] Weight (Calculated Kilograms) 59.42 59.42 [facility] Weight 2095 2095 [facility] Temperature Source 7 7 [facility] Temperature 96.7 96.7 [facility] Respiratory Effort 1 1 [facility] Respiratory Rate 15 15 [facility] Pulse Assessment Method 3 3 [facility] Pulse Rate 72 72 [facility] Height (Calculated Centimeters) 180.34 180. 34 [facility] Height 71 71 [facility] Blood Pressure 110/68 110/68 [facility] Body Mass Index (BMI) 18.2 18.2 [facility] Weight Measurement Method 1 1 [facility] Weight (Calculated Kilograms) 59.42 59.42 [facility] Weight 2096 2096 [facility] Temperature Source 7 7 [facility] Temperature 98.0 98.0 [facility] Respiratory Effort 1 1 [facility] Respiratory Rate 16 16 [facility] Pulse Assessment Method 4 4 [facility] Pulse Rate 76 76 [facility] Height (Calculated Centimeters) 180.34 180. 34 [facility] Height 71 71 [facility] Blood Pressure 128/60 128/60 [facility] Body Mass Index (BMI) 18.2 18.2 [facility] Patient Treatment Plan of Care Planned Activity Planned Date Details Description Data Source (s) Tab-A-Bipin 400 mcg tablet TAKE ONE TABLET BY MOUTH EVERY DAY [facility] ([facility]) Sulfamethoxazole 800 MG / Trimethoprim 160 MG Oral Tablet [facility] ([facility]) quetiapine 50 MG Oral Tablet [facility] ([facility]) Nicotine 4 MG Chewing Gum AT [facility] ([facility]) Narcan 4 mg/actuation nasal spray SPRAY 2 SPRAYS 4MG IN EACH NOSTRIL DIRECTED FOR SUSPECTED OPOID OVERDOSE AND CALL 911 [facility] ([facility]) methylprednisolone 4 mg tablets in a dose pack USE DIRECTED [facility] ([facility]) Levofloxacin 250 MG Oral Tablet [facility] ([facility]) Ibuprofen 800 MG Oral Tablet [facility] ([facility]) Hydroxyzine Hydrochloride 25 MG Oral Tablet [facility] ([facility]) Doxycycline Monohydrate 100 MG Oral Capsule [facility] ([facility]) Clotrimazole 10 MG/ML Topical Cream [facility] ([facility]) Cholecalciferol 1000 UNT Oral Tablet [facility] ([facility]) Cephalexin 500 MG Oral Capsule [facility] ([facility]) buspirone hydrochloride 5 MG Oral Tablet [facility] ([facility]) Buprenorphine 8 MG / Naloxone 2 MG Oral Strip [facility] ([facility]) Buprenorphine 4 MG / Naloxone 1 MG Oral Strip [facility] ([facility]) Buprenorphine 2 MG / Naloxone 0.5 MG Oral Strip [facility] ([facility]) Tab-A-Bipin 400 mcg tablet TAKE ONE TABLET BY MOUTH EVERY DAY [facility] ([facility]) quetiapine 50 MG Oral Tablet [facility] ([facility]) Nicotine 4 MG Chewing Gum AT [facility] ([facility]) Narcan 4 mg/actuation nasal spray SPRAY 2 SPRAYS 4MG IN EACH NOSTRIL DIRECTED FOR SUSPECTED OPOID OVERDOSE AND CALL 911 [facility] ([facility]) methylprednisolone 4 mg tablets in a dose pack USE DIRECTED [facility] ([facility]) Ibuprofen 800 MG Oral Tablet [facility] ([facility]) Hydroxyzine Hydrochloride 25 MG Oral Tablet [facility] ([facility]) Doxycycline Monohydrate 100 MG Oral Capsule [facility] ([facility]) Clotrimazole 10 MG/ML Topical Cream [facility] ([facility]) Cholecalciferol 1000 UNT Oral Tablet [facility] ([facility]) Cephalexin 500 MG Oral Capsule [facility] ([facility]) buspirone hydrochloride 5 MG Oral Tablet [facility] ([facility]) Buprenorphine 8 MG / Naloxone 2 MG Oral Strip [facility] ([facility]) Buprenorphine 4 MG / Naloxone 1 MG Oral Strip [facility] ([facility]) Buprenorphine 2 MG / Naloxone 0.5 MG Oral Strip [facility] ([facility])
== END 2021-09-08 18:00 | disposition home or self-care (01) ==
LOC: M ED 17:25 → EDBD 17:25 → M ED 18:00
DX: T40.1X1A Poisoning by heroin, accidental (unintentional), initial encounter (principal); Z88.0 Allergy status to penicillin

== ENCOUNTER 2021-09-15 19:03 | Emergency (ER) | payer OTHER ==
[~2021-09-15] VITALS: Ht 182.9 cm; Wt 63.6 kg
[2021-09-15] MEDS ORDERED: LORazepam 2 MG/ML VIAL IM STA (19:26)
[2021-09-15 19:57] LABS: HEMATOCRIT 36.8 % (42.0-52.0); MEAN CORPUSCULAR HEMOGLOBIN 31.3 pg (27.0-33.0); MEAN CORPUSCULAR HGB CONC 32.6 g/dl (32.0-36.5); MEAN CORPUSCULAR VOLUME 95.8 fl (80.0-96.0); PLATELET COUNT, AUTOMATED 294 10^3/uL (150-450); RED BLOOD COUNT 3.84 10^6/uL (4.30-6.10); WHITE BLOOD COUNT 10.4 10^3/uL (4.0-10.0)
[2021-09-15] MEDS ORDERED: HOME MED LIST COMPLETE! XX SCH (20:10)
[2021-09-15 20:43] LABS: ACETAMINOPHEN LEVEL < 2.0 UG/ML (10.0-30.0); ALBUMIN 3.4 GM/DL (3.2-5.2); ALT/SGPT 70 U/L (12-78); BILIRUBIN,DIRECT 0.1 MG/DL (0.0-0.2); BILIRUBIN,TOTAL 0.3 MG/DL (0.2-1.0); BLOOD UREA NITROGEN 14 MG/DL (7-18); CALCIUM LEVEL 8.6 MG/DL (8.5-10.1); CARBON DIOXIDE LEVEL 30 MEQ/L (21-32); CHLORIDE LEVEL 109 MEQ/L (98-107); ETHYL ALCOHOL (ETHANOL) < 0.003 % (0.000-0.010); GLOMERULAR FILTRATION RATE > 60.0 (>60); GLUCOSE, FASTING 84 MG/DL (70-100); SALICYLATE LEVEL < 1.7 MG/DL (5.0-30.0); SODIUM LEVEL 143 MEQ/L (136-145); TOTAL PROTEIN 6.6 GM/DL (6.4-8.2)
--- OUTSIDE RECORDS SUMMARY | 2021-09-15 22:39 | CCD ---
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 applicable w hen fasting. Calcium-Uncorrected 8.4-10.2 Normal (applies to non-nume iza results) [facility] Corrected Calcium 8.4-10.2 Normal (applies to non-numeri c results) [facility] Bilirubin,Total 0.2-1.3 Normal (applies to non-numeric results) [facility] Bilirubin,Direct 0.0-0.3 Normal (applies to non-numeric results) [facility] SGOT(AST) 79 U/L 17-59 Above high normal [facility] SGPT(ALT) 51 U/L 21-72 Normal (applies to non-numeric resul ts) [facility] Alkaline Phosphatase 71 U/L 38-126 Normal (applies to non-num zeb results) [facility] can increase Alkaline Phosp le vels up to 2 times the normal adult value. Normal values for children and adolescents are 2 to 3 times the normal adult value. CPK 695 U/L 39-308 Above high normal [facility] Total Protein 6.3-8.2 Normal (applies to non-numeric re sults) [facility] Albumin 3.5-5.0 Normal (applies to non-numeric resul ts) [facility] Thyroid Stimulate Hormone TSH 0.358-3.740 No rmal (applies to non-numeric results) [facility] ID Date Data Source [id number] 11/01/2020 10:01:00 AM EST [facility] Name Value Range Interpretation Code Description Data Hedy rce(s) Supporting Document(s) Magnesium 1.80-2.40 Normal (applies to non-numeric resul ts) [facility] ID Date Data Source [id number] 11/01/2020 10:01:00 AM EST [facility] Name Value Range Interpretation Code Description Data Hedy rce(s) Supporting Document(s) C-Reactive Protein,Wide Range <3.00 Above high normal [facility] ID Date Data Source [id number] 11/01/2020 09:31:00 AM EST [facility] Name Value Range Interpretation Code Description Data Hedy rce(s) Supporting Document(s) White Blood Count 4.8-10.8 Normal (applies to non-numeri c results) [facility] Red Blood Count 4.35-6.08 Normal (applies to non-numeric results) [facility] Hemoglobin 13.0-17.5 Normal (applies to non-numeric resul ts) [facility] Hematocrit 37.7-51.0 Normal (applies to non-numeric resul ts) [facility] Mean Corpuscular Volume 80-94 Normal (applies to non- numeric results) [facility] Mean Corpuscular Hemoglobin 27.0-33.0 Normal (appli es to non-numeric results) [facility] Mean Corpuscular HGB Conc 32.0-36.0 Normal (applies to no n-numeric results) [facility] Red Cell Distribution Width 11.5-14.5 Normal (appli es to non-numeric results) [facility] Platelet Count 207 X10 3/uL 130-450 Normal (applies to non-numeric results) [facility] Mean Platelet Volume 9.6-13.1 Normal (applies to non-num zeb results) [facility] Imm Grans% (AUTO) 0 % 0-2 Normal (applies to non-numeri c results) [facility] Neutrophils % (AUTO) 52 % 40-75 Normal (applies to non-num zeb results) [facility] Lymphocytes % (AUTO) 29 % 21-46 Normal (applies to non-num zeb results) [facility] Monocytes % (AUTO) 11 % 5-12 Normal (applies to non-numer ic results) [facility] Eosinophils % (AUTO) 7 % 1-5 Above high normal [facility] Basophils % (AUTO) 1 % 0-1 Normal (applies to non-numer ic results) [facility] Imm Grans# (AUTO) 0.0-0.5 Normal (applies to non-numeri c results) [facility] Neutrophils # (AUTO) 1.5-8.1 Normal (applies to non-num zeb results) [facility] Lymphocytes # (AUTO) 1.0-3.1 Normal (applies to non-num zeb results) [facility] Monocytes # (AUTO) 0.2-1.3 Normal (applies to non-numer ic results) [facility] Eosinophils# (AUTO) 0.0-0.5 Normal (applies to non-nume iza results) [facility] Basophils # (AUTO) 0.0-0.1 Normal (applies to non-numer ic results) [facility] ID Date Data Source [id number] 11/07/2020 02:28:00 PM EST [facility] Name Value Range Interpretation Code Description Data Hedy rce(s) Supporting Document(s) Cannabinoids Confirm,Ur result . Very abnor mal (applies to non-numeric units [facility] Carboxy THC GC/MS Conf 92 ng/mL Cutoff=10 01 Performed at: [address] [id number] [employer] Operator: Dari Daniel MD, Phone: [phone] ID Date Data Source [id number] 10/31/2020 09:06:00 PM EST [facility] Name Value Range Interpretation Code Description Data Hedy rce(s) Supporting Document(s) Opiate Screen,Urine Negative Normal (applies to non-nume iza results) [facility] Amphetamine Screen,Urine Negative [facility] Benzodiazepines Scrn,Ur result Negative N ormal (applies to non-numeric results) [facility] Cocaine Screen,Urine Negative Normal (applies to non-num zeb results) [facility] Methadone Screen,Urine Negative Normal (applies to non-n umeric results) [facility] Cannabinoid Screen, Ur Negative [place] [facility] Therapeutic Drug Ranges for Emergency an d Rehabilitation Threshold Levels (ng/mL) Cocaine 300 Opiates 300 Cannabinoids 50 Barbiturates 200 Benzodiazepine 200 Methadone 300 Amphetamines 1000 All positive findings are presumptive and unconfirmed. Confirmation of positive results are performed only at request of provider. Unconfirmed results must not be used for non-medical purposes (i.e. pre-employment and legal purposes) ID Date Data Source [id number] 10/31/2020 06:32:00 PM EST [facility] Name Value Range Interpretation Code Description Data Hedy rce(s) Supporting Document(s) Respiratory specimen severe acute respir atory syndrome coronavirus 2 (SARS-CoV-2) RNA [facility] This lab was ordered by [facility] marissa and reported by [facility]. ID Date Data Source [id number] 10/31/2020 06:18:00 PM EST [facility] Name Value Range Interpretation Code Description Data Hedy rce(s) Supporting Document(s) SARS-CoV-2 RNA Negative Normal (applies to non-numeric r esults) [facility] Negative results should be treated as [...] Certificate of Accreditation. Factsheets for healthcare providers: https://www.fda.gov/media/230304/download Factsheets for patients: https://www.fda.gov/media/791903/download The ID NOW Instrument is a rapid molecular in vitro diagnostic test utilizing an isothermal nucleic acid amplification technology intended for the qualitative detection of nucleic acid from the SARS-CoV-2 viral RNA. THIS IS A STATE REPORTABLE COMMUNICABLE DISEASE. Manual entry verified by Tessie Goodwin 10/31/20 1817 ID Date Data Source [id number] 10/31/2020 11:55:00 PM EST [facility] Name Value Range Interpretation Code Description Data Hedy rce(s) Supporting Document(s) Color,Urine Yellow Normal (applies to non-numeric resu lts) [facility] Clarity,Urine Clear Normal (applies to non-numeric re sults) [facility] Specific [place],Urine 1.001-1.030 Normal (applies to non- numeric results) [facility] PH,Urine 5.0-8.0 Normal (applies to non-numeric resul ts) [facility] Protein,Urine Negative Normal (applies to non-numeric re sults) [facility] Glucose,Urine (UA) Negative Normal (applies to non-numer ic results) [facility] Ketones,Urine Negative [facility] ospital Blood,Urine Negative Normal (applies to non-numeric resu lts) [facility] Bilirubin,Urine Negative Normal (applies to non-numeric results) [facility] Urobilinogen,Urine Norm 0.2-1 Normal (applies to non-numer ic results) [facility] Leukocyte Esterase,Urine Negative Normal (applies to non -numeric results) [facility] Nitrite,Urine Negative Normal (applies to non-numeric re sults) [facility] Procedure Social History No Information Vital Signs ID Date Data Source [id number] Name Value Range Interpretation Code Description Data Source(s) Systolic blood pressure 104.0 MM[HG] 104.0 MM[H G] NETSMART ([facility]) Diastolic blood pressure 61.0 MM[HG] 61.0 MM[HG ] [facility] ([facility]) Heart rate 94.0 /MIN 94.0 /MIN [facility]SM[facility] ([facility]) Respiratory rate 16.0 /MIN 16.0 /MIN [facility] ([facility]) Body temperature 97.7 [DEGF] 97.7 [DEGF] [facility] ([facility]) Systolic blood pressure 117.0 MM[HG] 117.0 MM[H G] [facility] ([facility]) Body temperature 36.5 ARA 36.5 RAA [facility] ([facility]) Diastolic blood pressure 62.0 [...] 36.3 ARA 36.3 ARA [facility] ([facility]) Body temperature 97.3 [DEGF] 97.3 [DEGF] NETSMA RT ([facility]) Systolic blood pressure 118.0 MM[HG] 118.0 MM[H G] [facility] ([facility]) Heart rate 64.0 /MIN [...] 36.4 ARA [facility] ([facility]) Body temperature 98.7 [DEGF] 98.7 [DEGF] NETSMA RT ([facility]) Diastolic blood pressure 71.0 MM[HG] 71.0 MM[HG ] [facility] ([facility]) Heart rate 74.0 /MIN 74.0 /MIN [facility] ([facility]) Body temperature 37.1 ARA 37.1 ARA [facility] ([facility]) Body height 182.9 cm 182.9 cm [facility] ([facility]) Body mass index (BMI) [Ratio] 19.0 19.0 [facility] ([facility]) Body weight 63.6 KG 63.6 KG [facility] ([facility]) Systolic blood pressure 131.0 MM[HG] 131.0 MM[H G] [facility] ([facility]) Respiratory rate 16.0 /MIN 16.0 /MIN [facility] ([facility]) Oxygen saturation in Arterial blood by Pulse oximetry 100.0 % 100.0 % [facility] ([facility]) Respiratory rate 12 /min 12 /min [facility] ( [facility], ) Body height 72 [in_i] 72 [in_i] [facility] ([facility], ) 6'0" Body weight 145.00 [lb_av] 145.00 [lb_av] [facility] ([facility], ) Body mass index (BMI) [Ratio] 19.7 kg/m2 19.7 k g/m2 [facility] ([facility], ) Hendricks body weight 178 [lb_av] 178 [lb_av] [facility] ([facility], ) Body height 72 [in_i] 72 [in_i] [facility]) Diastolic blood pressure 62 mm[Hg] 62 mm[Hg] [facility] ([facility]) Diastolic blood pressure 62 mm[Hg] 62 mm[Hg] [facility]) Body height 72 [in_i] 72 [in_i] [facility]) Body mass index (BMI) [Ratio] 19.4 kg/m2 19.4 k g/m2 [facility] ([facility]) Systolic blood pressure 98 mm[Hg] 98 mm[Hg] A [facility] ([facility]) Body weight 2290 [oz_av] 2290 [oz_av] [facility] ([facility]) Body height 72 [in_i] 72 [in_i] [facility] ([facility]) Body mass index (BMI) [Ratio] 19.4 kg/m2 19.4 k g/m2 [facility] ([facility]) Systolic blood pressure 98 mm[Hg] 98 mm[Hg] [facility] Body weight 2290 [oz_av] 2290 [oz_av] [facility] ([facility]) Body temperature 36.4 ARA 36.4 ARA [facility] ([facility]) Heart rate 72.0 /MIN 72.0 /MIN [facility] ([facility]) Respiratory rate 14.0 /MIN 14.0 /MIN [facility] ([facility]) Systolic blood pressure 122.0 MM[HG] 122.0 MM[H G] [facility] ([facility]) Diastolic blood pressure 68.0 MM[HG] 68.0 MM[HG ] [facility] ([facility]) Body temperature 97.6 [DEGF] 97.6 [DEGF] NETSMA RT ([facility]) Respiratory rate 17.0 /MIN 17.0 /MIN [facility] ([facility]) Body temperature 36.6 ARA 36.6 ARA [facility] ([facility]) Heart rate 92.0 /MIN 92.0 /MIN [facility] ([facility]) Body temperature 97.8 [DEGF] 97.8 [DEGF] [facility]SMA RT ([facility]) Systolic blood pressure 114.0 MM[HG] 114.0 MM[H G] [facility] ([facility]) Diastolic blood pressure 74.0 MM[HG] 74.0 MM[HG ] [facility] ([facility]) Body temperature 98.2 [DEGF] 98.2 [...] MM[HG] 113.0 MM[H G] [facility]SM[facility] ([facility]) Diastolic blood pressure 63.0 MM[HG] 63.0 MM[HG ] [facility] ([facility]) Respiratory rate 16.0 /MIN 16.0 /MIN [facility] ([facility]) Heart rate 53.0 /MIN 53.0 /MIN [facility] ([facility]) Body temperature 37.1 ARA 37.1 ARA [facility] ([facility]) Body temperature 98.7 [DEGF] 98.7 [DEGF] NETSMA RT ([facility]) Heart rate 74.0 /MIN 74.0 /MIN [facility] ([facility]) Systolic blood pressure 103.0 MM[HG] 103.0 MM[H G] [facility] ([facility]) Diastolic blood pressure 62.0 MM[HG] 62.0 MM[HG ] [facility] ([facility]) Respiratory rate 17.0 /MIN 17.0 /MIN [facility] ([facility]) Systolic blood pressure 103.0 MM[HG] 103.0 MM[H G] [facility] ([facility]) Body temperature 98.7 [DEGF] 98.7 [DEGF] NETSMA RT ([facility]) Heart rate 74.0 /MIN 74.0 /MIN [facility] ([facility]) Respiratory rate 17.0 /MIN 17.0 /MIN [facility] ([facility]) Diastolic blood pressure 62.0 MM[HG] 62.0 MM[HG ] [facility] ([facility]) Body temperature 37.1 ARA 37.1 ARA [facility] ([facility]) Heart rate 73.0 /MIN 73.0 /MIN [facility] ([facility]) Respiratory rate 16.0 /MIN 16.0 /MIN [facility] ([facility]) Systolic blood pressure 107.0 MM[HG] 107.0 MM[H G] [facility] ([facility]) Body temperature 97.7 [DEGF] 97.7 [DEGF] NETSMA RT ([facility]) Diastolic blood pressure 61.0 MM[HG] 61.0 MM[HG ] [facility] ([facility]) Body temperature 36.5 ARA 36.5 ARA [facility] ([facility]) Body temperature 98.7 [DEGF] 98.7 [DEGF] NETSMA RT ([facility]) Heart rate 16.0 /MIN 16.0 /MIN [facility] ([facility]) Respiratory rate [...] pressure 75.0 MM[HG] 75.0 MM[HG ] [facility] ([facility]) Body temperature 98.2 [DEGF] 98.2 [DEGF] NETSMA RT ([facility]) Body temperature 36.6 ARA 36.6 ARA [facility] ([facility]) Heart rate 91.0 /MIN 91.0 /MIN [facility] ([facility]) Body temperature 97.8 [DEGF] 97.8 [DEGF] NETSMA RT ([facility]) Respiratory rate 16.0 /MIN 16.0 /MIN [facility] ([facility]) Systolic blood pressure 107.0 MM[HG] 107.0 MM[H G] [facility] ([facility]) Diastolic blood pressure 62.0 MM[HG] 62.0 MM[HG ] [facility] ([facility]) Oxygen saturation in Arterial blood by Pulse oximetry 99.0 % 99.0 % [facility] ([facility]) ID Date Data Source [id number] 11/16/2020 09:35:00 AM EST [facility] Name Value Range Interpretation Code Description Data Source(s) Weight Measurement Method 1 1 [facility] Weight (Calculated Kilograms) 59.42 59.42 [facility] Weight 3251 6 [facility] Temperature Source 7 7 [facility] Temperature 97.6 97.6 [facility] Respiratory Effort 1 1 [facility] Respiratory Rate 16 16 [facility] Pulse Assessment Method 4 4 [facility] Pulse Rate 66 66 [facility] Height (Calculated Centimeters) 180.34 180. 34 [facility] Height 71 71 [facility] Blood Pressure 130/55 130/55 [facility] Body Mass Index (BMI) 18.2 18.2 [facility] Weight Measurement Method 1 1 [facility] Weight (Calculated Kilograms) 59.42 59.42 [facility] Weight 2095 2095 [facility] Temperature Source 7 7 [facility] Temperature 97.6 97.6 [facility] Respiratory Effort 1 1 [facility] Respiratory Rate 16 16 [facility] Pulse Assessment Method 4 4 [facility] Pulse Rate 66 66 [facility] Height (Calculated Centimeters) 180.34 180. 34 [facility] Height 71 71 [facility] Blood Pressure 130/55 130/55 [facility] Body Mass Index (BMI) 18.2 18.2 [facility] Weight Measurement Method 1 1 [facility] Weight (Calculated Kilograms) 59.42 59.42 [facility] Weight 2095 2095 [facility] Temperature Source 7 7 [facility] Temperature 97.6 97.6 [facility] Respiratory Effort 1 1 [facility] Respiratory Rate 16 16 [facility] Pulse Assessment Method 4 4 [facility] Pulse Rate 66 66 [facility] Height (Calculated Centimeters) 180.34 180. 34 [facility] Height 71 71 [facility] Blood Pressure 130/55 130/55 [facility] Body Mass Index (BMI) 18.2 18.2 [facility] Weight Measurement Method 1 1 [facility] Weight (Calculated Kilograms) 59.42 59.42 [facility] Weight 2095 2095 [facility] Temperature Source 7 7 [facility] Temperature 96.7 96.7 [facility] Respiratory Effort 1 1 [facility] Respiratory Rate 16 16 [facility] Pulse Assessment Method 4 4 [facility] Pulse Rate 49 49 [facility] Height (Calculated Centimeters) 180.34 180. 34 [facility] Height 71 71 [facility] Blood Pressure 96/56 96/56 [facility] Body Mass Index (BMI) 18.2 18.2 [facility] Weight Measurement Method 1 1 [facility] Weight (Calculated Kilograms) 59.42 59.42 [facility] Weight 2095 2095 [facility] Temperature Source 7 7 [facility] Temperature 96.7 96.7 [facility] Respiratory Effort 1 1 [facility] Respiratory Rate 15 15 [facility] Pulse Assessment Method 3 3 [facility] Pulse Rate 72 72 [facility] Height (Calculated Centimeters) 180.34 180. 34 [facility] Height 71 71 [facility] Blood Pressure 110/68 110/68 [facility] Body Mass Index (BMI) 18.2 18.2 [facility] Weight Measurement Method 1 1 [facility] Weight (Calculated Kilograms) 59.42 59.42 [facility] Weight 2095 2095 [facility] Temperature Source 7 7 [facility] Temperature 98.0 98.0 [facility] Respiratory Effort 1 1 [facility] Respiratory Rate 16 16 [facility] Pulse Assessment Method 4 4 [facility] Pulse Rate 76 76 [facility] Height (Calculated Centimeters) 180.34 180. 34 [facility] Height 71 71 [facility] Blood Pressure 128/60 128/60 [facility] Body Mass Index (BMI) 18.2 18.2 [facility] Patient Treatment Plan of Care Planned Activity Planned Date Details Description Data Source (s) Tab-A-Bipin 400 mcg tablet TAKE ONE TABLET BY MOUTH EVERY DAY [facility]) Sulfamethoxazole 800 MG / Trimethoprim 160 MG Oral Tablet [facility] ([facility]) quetiapine 50 MG Oral Tablet [facility] ([facility]) Nicotine 4 MG Chewing Gum AT [facility]) Narcan 4 mg/actuation nasal spray SPRAY 2 SPRAYS 4MG IN EACH NOSTRIL DIRECTED FOR SUSPECTED OPOID OVERDOSE AND CALL 911 [facility] ([facility]) methylprednisolone 4 mg tablets in a dose pack USE DIRECTED [place] ([facility]) Levofloxacin 250 MG Oral Tablet [facility] ([facility]) Ibuprofen 800 MG Oral Tablet [facility] ([facility]) Hydroxyzine Hydrochloride 25 MG Oral Tablet [facility] ([facility]) Doxycycline Monohydrate 100 MG Oral Capsule [facility] ([facility]) Clotrimazole 10 MG/ML Topical Cream [facility] ([facility]) Cholecalciferol 1000 UNT Oral Tablet [facility] ([facility]) Cephalexin 500 MG Oral Capsule [facility] ([facility]) buspirone hydrochloride 5 MG Oral Tablet [facility] ([facility]) Buprenorphine 8 MG / Naloxone 2 MG Oral Strip [facility] ([facility]) Buprenorphine 4 MG / Naloxone 1 MG Oral Strip [facility] ([facility]) Buprenorphine 2 MG / Naloxone 0.5 MG Oral Strip [facility] ([facility]) Tab-A-Bipin 400 mcg tablet TAKE ONE TABLET BY MOUTH EVERY DAY [facility] ([facility]) quetiapine 50 MG Oral Tablet [place] ([facility]) Nicotine 4 MG Chewing Gum AT [facility]) Narcan 4 mg/actuation nasal spray SPRAY 2 SPRAYS 4MG IN EACH NOSTRIL DIRECTED FOR SUSPECTED OPOID OVERDOSE AND CALL 911 [facility] ([facility]) methylprednisolone 4 mg tablets in a dose pack USE DIRECTED [facility] ([facility]) Ibuprofen 800 MG Oral Tablet [facility] ([facility]) Hydroxyzine Hydrochloride 25 MG Oral Tablet [facility] ([facility]) Doxycycline Monohydrate 100 MG Oral Capsule [facility] ([facility]) Clotrimazole 10 MG/ML Topical Cream [facility] ([facility]) Cholecalciferol 1000 UNT Oral Tablet [facility] ([facility] Cephalexin 500 MG Oral Capsule [facility] ([facility]) buspirone hydrochloride 5 MG Oral Tablet [facility] ([facility]) Buprenorphine 8 MG / Naloxone 2 MG Oral Strip [facility] ([facility]) Buprenorphine 4 MG / Naloxone 1 MG Oral Strip [facility] ([facility]) Buprenorphine 2 MG / Naloxone 0.5 MG Oral Strip [facility] ([facility])
--- OUTSIDE RECORDS SUMMARY | 2021-09-15 23:05 | CCD ---
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 [facility] Carbon Dioxide CO2 22.0-33.0 Normal (applies to non-numer ic results) [facility] Anion Gap 4.0-11.0 Normal (applies to non-numeric resul ts) [facility] BUN 17 mg/dL 9-20 Normal (applies to non-numeric resul ts) [facility] Creatinine 0.80-1.50 Normal (applies to non-numeric resul ts) [facility] GFR 88 mL/min >60 Normal (applies to non-numeric resul ts) [facility] Result based on MDRD formula. Glucose Level 110 mg/dL 74-99 Above high normal [facility] The reference range is only applicable w hen fasting. Calcium-Uncorrected 8.4-10.2 Normal (applies to non-nume iza results) [facility] Corrected Calcium 8.4-10.2 Normal (applies to non-numeri c results) [facility] Bilirubin,Total 0.2-1.3 Normal (applies to non-numeric results) [facility] Bilirubin,Direct 0.0-0.3 Normal (applies to non-numeric results) [facility] SGOT(AST) 79 U/L 17-59 Above high normal [facility] SGPT(ALT) 51 U/L 21-72 Normal (applies to non-numeric resul ts) [facility] Alkaline Phosphatase 71 U/L 38-126 Normal (applies to non-num zeb results) [facility] can increase Alkaline Phosp le vels up to 2 times the normal adult value. Normal values for children and adolescents are 2 to 3 times the normal adult value. CPK 695 U/L 39-308 Above high normal [facility] Total Protein 6.3-8.2 Normal (applies to non-numeric re sults) [facility] Albumin 3.5-5.0 Normal (applies to non-numeric resul ts) [facility] Thyroid Stimulate Hormone TSH 0.358-3.740 No rmal (applies to non-numeric results) [facility] ID Date Data Source [id number] 11/01/2020 10:01:00 AM EST [facility] Name Value Range Interpretation Code Description Data Hedy rce(s) Supporting Document(s) Magnesium 1.80-2.40 Normal (applies to non-numeric resul ts) [facility] ID Date Data Source [id number] 11/01/2020 10:01:00 AM EST [facility] Name Value Range Interpretation Code Description Data Hedy rce(s) Supporting Document(s) C-Reactive Protein,Wide Range <3.00 Above high normal [facility] ID Date Data Source [id number] 11/01/2020 09:31:00 AM EST [facility] Name Value Range Interpretation Code Description Data Hedy rce(s) Supporting Document(s) White Blood Count 4.8-10.8 Normal (applies to non-numeri c results) [facility] Red Blood Count 4.35-6.08 Normal (applies to non-numeric results) [facility] Hemoglobin 13.0-17.5 Normal (applies to non-numeric resul ts) [facility] Hematocrit 37.7-51.0 Normal (applies to non-numeric resul ts) [facility] Mean Corpuscular Volume 80-94 Normal (applies to non- numeric results) [facility] Mean Corpuscular Hemoglobin 27.0-33.0 Normal (appli es to non-numeric results) [facility] Mean Corpuscular HGB Conc 32.0-36.0 Normal (applies to no n-numeric results) [facility] Red Cell Distribution Width 11.5-14.5 Normal (appli es to non-numeric results) [facility] Platelet Count 207 X10 3/uL 130-450 Normal (applies to non-numeric results) [facility] Mean Platelet Volume 9.6-13.1 Normal (applies to non-num zeb results) [facility] Imm Grans% (AUTO) 0 % 0-2 Normal (applies to non-numeri c results) [facility] Neutrophils % (AUTO) 52 % 40-75 Normal (applies to non-num zeb results) [facility] Lymphocytes % (AUTO) 29 % 21-46 Normal (applies to non-num zeb results) [facility] Monocytes % (AUTO) 11 % 5-12 Normal (applies to non-numer ic results) [facility] Eosinophils % (AUTO) 7 % 1-5 Above high normal [facility] Basophils % (AUTO) 1 % 0-1 Normal (applies to non-numer ic results) [facility] Imm Grans# (AUTO) 0.0-0.5 Normal (applies to non-numeri c results) [facility] Neutrophils # (AUTO) 1.5-8.1 Normal (applies to non-num zeb results) [facility] Lymphocytes # (AUTO) 1.0-3.1 Normal (applies to non-num zeb results) [facility] Monocytes # (AUTO) 0.2-1.3 Normal (applies to non-numer ic results) [facility] Eosinophils# (AUTO) 0.0-0.5 Normal (applies to non-nume iza results) [facility] Basophils # (AUTO) 0.0-0.1 Normal (applies to non-numer ic results) [facility] ID Date Data Source [id number] 11/07/2020 02:28:00 PM EST [facility] Name Value Range Interpretation Code Description Data Hedy rce(s) Supporting Document(s) Cannabinoids Confirm,Ur result . Very abnor mal (applies to non-numeric units [facility] Carboxy THC GC/MS Conf 92 ng/mL Cutoff=10 01 Performed at: [address] [id number] [employer] Serv[employer]: Dari Daniel MD, Phone: [phone] ID Date Data Source [id number] 10/31/2020 09:06:00 PM EST [facility] Name Value Range Interpretation Code Description Data Hedy rce(s) Supporting Document(s) Opiate Screen,Urine Negative Normal (applies to non-nume iza results) [facility] Amphetamine Screen,Urine Negative [place] [facility] Benzodiazepines Scrn,Ur result Negative N ormal (applies to non-numeric results) [facility] Cocaine Screen,Urine Negative Normal (applies to non-num zeb results) [facility] Methadone Screen,Urine Negative Normal (applies to non-n umeric results) [facility] Cannabinoid Screen, Ur Negative [place] [facility] Therapeutic Drug Ranges for Emergency an d Rehabilitation Threshold Levels (ng/mL) Cocaine 300 Opiates 300 Cannabinoids 50 Barbiturates 200 Benzodiazepine 200 Methadone 300 Amphetamines 1000 All positive findings are presumptive and unconfirmed. Confirmation of positive results are performed only at request of provider. Unconfirmed results must not be used for non-medical purposes (i.e. pre-employment and legal purposes) ID Date Data Source [id number] 10/31/2020 06:32:00 PM EST [facility] Name Value Range Interpretation Code Description Data Hedy rce(s) Supporting Document(s) Respiratory specimen severe acute respir atory syndrome coronavirus 2 (SARS-CoV-2) RNA [facility] This lab was ordered by [facility] marissa and reported by [facility]. ID Date Data Source [id number] 10/31/2020 06:18:00 PM EST [facility] Name Value Range Interpretation Code Description Data Hedy rce(s) Supporting Document(s) SARS-CoV-2 RNA Negative Normal (applies to non-numeric r esults) [facility] Negative results should be treated as [...] Certificate of Accreditation. Factsheets for healthcare providers: https://www.fda.gov/media/536165/download Factsheets for patients: https://www.fda.gov/media/961096/download The ID NOW Instrument is a rapid molecular in vitro diagnostic test utilizing an isothermal nucleic acid amplification technology intended for the qualitative detection of nucleic acid from the SARS-CoV-2 viral RNA. THIS IS A STATE REPORTABLE COMMUNICABLE DISEASE. Manual entry verified by Tessie Goodwin 10/31/20 1817 ID Date Data Source [id number] 10/31/2020 11:55:00 PM EST [facility] Name Value Range Interpretation Code Description Data Hedy rce(s) Supporting Document(s) Color,Urine Yellow Normal (applies to non-numeric resu lts) [facility] Clarity,Urine Clear Normal (applies to non-numeric re sults) [facility] Specific [place],Urine 1.001-1.030 Normal (applies to non- numeric results) [facility] PH,Urine 5.0-8.0 Normal (applies to non-numeric resul ts) [facility] Protein,Urine Negative Normal (applies to non-numeric re sults) [facility] Glucose,Urine (UA) Negative Normal (applies to non-numer ic results) [facility] Ketones,Urine Negative [facility] Blood,Urine Negative Normal (applies to non-numeric resu lts) [facility] Bilirubin,Urine Negative Normal (applies to non-numeric results) [facility] Urobilinogen,Urine Norm 0.2-1 Normal (applies to non-numer ic results) [facility] Leukocyte Esterase,Urine Negative Normal (applies to non -numeric results) [facility] Nitrite,Urine Negative Normal (applies to non-numeric re sults) [facility] Procedure Social History No Information Vital Signs ID Date Data Source [id number] Name Value Range Interpretation Code Description Data Source(s) Systolic blood pressure 104.0 MM[HG] 104.0 MM[H G] NETSMART ([employer]) Diastolic blood pressure 61.0 MM[HG] 61.0 MM[HG ] NETSMART ([employer]) Heart rate 94.0 /MIN 94.0 /MIN [employer]SMART ([employer]) Respiratory rate 16.0 /MIN 16.0 /MIN [facility] ([facility]) Body temperature 97.7 [DEGF] 97.7 [DEGF] NETSMA RT ([facility]) Systolic blood pressure 117.0 MM[HG] 117.0 MM[H G] [facility]SMART ([facility]) Diastolic blood pressure 62.0 MM[HG] 62.0 MM[HG ] [facility]SM[facility] ([facility]) Body temperature 36.5 ARA 36.5 ARA [facility]SM[facility] ([facility]) Heart rate 64.0 [...] [DEGF] 97.3 [DEGF] NETSMA RT ([facility]) Heart rate 64.0 /MIN 64.0 /MIN [facility] ([facility]) Respiratory rate 16.0 /MIN 16.0 /MIN NETSMART ([facility]) Systolic blood pressure 118.0 MM[HG] 118.0 MM[H G] NETSMART ([facility]) Diastolic blood [...] 37.1 ARA 37.1 ARA [facility]SMART ([facility]) Diastolic blood pressure 71.0 MM[HG] 71.0 MM[HG ] [facility]SMART ([facility]) Body height 182.9 cm 182.9 cm [facility] ([facility]) Body mass index (BMI) [Ratio] 19.0 19.0 [facility]SM[facility] ([facility]) Heart rate 74.0 /MIN 74.0 /MIN [facility]SM[facility] ([facility]) Systolic blood pressure 131.0 MM[HG] 131.0 MM[H G] [facility]SM[facility] ([facility]) Body weight 63.6 KG 63.6 KG [facility] ([facility]) Body temperature 98.7 [DEGF] 98.7 [DEGF] NETSMA RT ([facility]) Respiratory rate 16.0 /MIN 16.0 /MIN NETSMART ([facility]) Oxygen saturation in Arterial blood by Pulse oximetry 100.0 % 100.0 % NETSMART ([facility]) Respiratory rate 12 /min 12 /min [facility] ( [facility], ) Body height 72 [in_i] 72 [in_i] [facility] ([facility], ) 6'0" Body weight 145.00 [lb_av] 145.00 [lb_av] MEDEN T ([facility], ) Body mass index (BMI) [Ratio] 19.7 kg/m2 19.7 k g/m2 [facility] ([facility], ) [place] body weight 178 [lb_av] 178 [lb_av] MEDEN T ([facility], ) Body height 72 [in_i] 72 [in_i] ROGER ([facility]) Diastolic blood pressure 62 mm[Hg] 62 mm[Hg] ROGER ([facility]) Body height 72 [in_i] 72 [in_i] [facility] ([facility]) Body mass index (BMI) [Ratio] 19.4 kg/m2 19.4 k g/m2 [facility] ([facility]) Systolic blood pressure 98 mm[Hg] 98 mm[Hg] A THENA ([facility]) Body weight 2290 [oz_av] 2290 [oz_av] [facility] ([facility]) Diastolic blood pressure 62 mm[Hg] 62 mm[Hg] [facility] ([facility]) Body height 72 [in_i] 72 [in_i] [facility] ([facility]) Body mass index (BMI) [Ratio] 19.4 kg/m2 19.4 k g/m2 [facility] ([facility]) Systolic blood pressure 98 mm[Hg] 98 mm[Hg] A THENA ([facility]) Body weight 2290 [oz_av] 2290 [oz_av] [facility]ER ([facility]) Body temperature 36.4 ARA 36.4 ARA NETSMART [...] 37.1 ARA 37.1 ARA [facility]SMART ([facility]) Systolic blood pressure 103.0 MM[HG] 103.0 MM[H G] NETSMART ([facility]) Body temperature 98.7 [DEGF] 98.7 [DEGF] NETSMA RT ([facility]) Heart rate 74.0 /MIN 74.0 /MIN [facility]SM[facility] ([facility]) Diastolic blood pressure 62.0 MM[HG] 62.0 MM[HG ] [facility]SMART ([facility]) Respiratory rate 17.0 /MIN 17.0 /MIN [facility]SMART ([facility]) Systolic blood pressure 103.0 MM[HG] 103.0 MM[H G] [facility]SMART ([facility]) Body temperature 98.7 [DEGF] 98.7 [DEGF] NETSMA RT ([facility]) Heart rate 74.0 /MIN 74.0 /MIN [facility]SM[facility] ([facility]) Respiratory rate 17.0 /MIN 17.0 /MIN [facility]SM[facility] ([facility]) Body temperature 37.1 ARA 37.1 ARA [facility]SMART ([facility]) Diastolic blood pressure [...] [DEGF] NETSMA RT ([facility]) Body temperature 97.8 [DEGF] 97.8 [DEGF] NETSMA RT ([facility]) Body temperature 36.6 ARA 36.6 ARA [facility]SMART ([facility]) Heart rate 91.0 /MIN 91.0 /MIN [facility]SM[facility] ([facility]) Respiratory rate 16.0 /MIN 16.0 /MIN NETSMART ([facility]) Systolic blood pressure 107.0 MM[HG] 107.0 MM[H G] NETSMART ([facility]) Diastolic blood pressure 62.0 MM[HG] 62.0 MM[HG ] NETSMART ([facility]) Oxygen saturation in Arterial blood by Pulse oximetry 99.0 % 99.0 % [facility]SMART ([facility]) ID Date Data Source [id number] 11/16/2020 09:35:00 AM EST [facility] Name Value Range Interpretation Code Description Data Source(s) Weight Measurement Method 1 1 [facility] Weight (Calculated Kilograms) 59.42 59.42 [facility] Weight 4617 6 [facility] Temperature Source 7 7 [facility] Temperature 97.6 97.6 [facility] Respiratory Effort 1 1 [facility] Respiratory Rate 16 16 [facility] Pulse Assessment Method [address] [facility] Pulse Rate 66 66 [facility] Height (Calculated Centimeters) 180.34 180. 34 [facility] Height 71 71 [facility] Blood Pressure 130/55 130/55 [facility] Body Mass Index (BMI) 18.2 18.2 [facility] Weight Measurement Method 1 1 [facility] Weight (Calculated Kilograms) 59.42 59.42 [facility] Weight 2095 2095 [facility] Temperature Source 7 7 [facility] Temperature 97.6 97.6 [facility] Respiratory Effort 1 1 [facility] Respiratory Rate 16 16 [facility] Pulse Assessment Method [address] [facility] Pulse Rate 66 66 [facility] Height (Calculated Centimeters) 180.34 180. 34 [facility] Height 71 71 [facility] Blood Pressure 130/55 130/55 [facility] Body Mass Index (BMI) 18.2 18.2 [facility] Weight Measurement Method 1 1 [facility] Weight (Calculated Kilograms) 59.42 59.42 [facility] Weight 2095 2095 [facility] Temperature Source 7 7 [facility] Temperature 97.6 97.6 [facility] Respiratory Effort 1 1 [facility] Respiratory Rate 16 16 [facility] Pulse Assessment Method [address] [facility] Pulse Rate 66 66 [facility] Height (Calculated Centimeters) 180.34 180. 34 [facility] Height 71 71 [facility] Blood Pressure 130/55 130/55 [facility] Body Mass Index (BMI) 18.2 18.2 [facility] Weight Measurement Method 1 1 [facility] Weight (Calculated Kilograms) 59.42 59.42 [facility] Weight 2095 2095 [facility] Temperature Source 7 7 [facility] Temperature 96.7 96.7 [facility] Respiratory Effort 1 1 [facility] Respiratory Rate 16 16 [facility] Pulse Assessment Method [address] [facility] Pulse Rate 49 49 [facility] Height (Calculated Centimeters) 180.34 180. 34 [facility] Height 71 71 [facility] Blood Pressure 96/56 96/56 [facility] Body Mass Index (BMI) 18.2 18.2 [facility] Weight Measurement Method 1 1 [facility] Weight (Calculated Kilograms) 59.42 59.42 [facility] Weight 2095 2095 [facility] Temperature Source 7 7 [facility] Temperature 96.7 96.7 [facility] Respiratory Effort 1 1 [facility] Respiratory Rate 15 15 [facility] Pulse Assessment Method 3 3 [facility] Pulse Rate 72 72 [facility] Height (Calculated Centimeters) 180.34 180. 34 [facility] Height 71 71 [facility] Blood Pressure 110/68 110/68 [facility] Body Mass Index (BMI) 18.2 18.2 [facility] Weight Measurement Method 1 1 [facility] Weight (Calculated Kilograms) 59.42 59.42 [facility] Weight 2095 2095 [facility] Temperature Source 7 7 [facility] Temperature 98.0 98.0 [facility] Respiratory Effort 1 1 [facility] Respiratory Rate 16 16 [facility] Pulse Assessment Method 4 4 [facility] Pulse Rate 76 76 [facility] Height (Calculated Centimeters) 180.34 180. 34 [facility] Height 71 71 [facility] Blood Pressure 128/60 128/60 [facility] Body Mass Index (BMI) 18.2 18.2 [facility] Patient Treatment Plan of Care Planned Activity Planned Date Details Description Data Source (s) Tab-A-Bipin 400 mcg tablet TAKE ONE TABLET BY MOUTH EVERY DAY ROGER ([facility]) Sulfamethoxazole 800 MG / Trimethoprim 160 MG Oral Tablet ROGER ([facility]) quetiapine 50 MG Oral Tablet ROGER ([facility]) Nicotine 4 MG Chewing Gum AT [facility]) Narcan 4 mg/actuation nasal spray SPRAY 2 SPRAYS 4MG IN EACH NOSTRIL DIRECTED FOR SUSPECTED OPOID OVERDOSE AND CALL 911 ROGER ([facility]) methylprednisolone 4 mg tablets in a dose pack USE DIRECTED IMBODEN ([facility]) Levofloxacin 250 MG Oral Tablet ROGER ([facility]) Ibuprofen 800 MG Oral Tablet ROGER ([facility]) Hydroxyzine Hydrochloride 25 MG Oral Tablet ROGER ([facility]) Doxycycline Monohydrate 100 MG Oral Capsule ROGER ([facility]) Clotrimazole 10 MG/ML Topical Cream ROGER ([facility]) Cholecalciferol 1000 UNT Oral Tablet ROGER ([facility]) Cephalexin 500 MG Oral Capsule ROGER ([facility]) buspirone hydrochloride 5 MG Oral Tablet ROGER ([facility]) Buprenorphine 8 MG / Naloxone 2 MG Oral Strip ROGER ([facility]) Buprenorphine 4 MG / Naloxone 1 MG Oral Strip ROGER ([facility]) Buprenorphine 2 MG / Naloxone 0.5 MG Oral Strip ROGER ([facility]) Tab-A-Bipin 400 mcg tablet TAKE ONE TABLET BY MOUTH EVERY DAY ROGER ([facility]) quetiapine 50 MG Oral Tablet IMBODEN ([facility]) Nicotine 4 MG Chewing Gum AT [facility]) Narcan 4 mg/actuation nasal spray SPRAY 2 SPRAYS 4MG IN EACH NOSTRIL DIRECTED FOR SUSPECTED OPOID OVERDOSE AND CALL 911 ROGER ([facility]) methylprednisolone 4 mg tablets in a dose pack USE DIRECTED ROGER ([facility]) Ibuprofen 800 MG Oral Tablet ROGER ([facility]) Hydroxyzine Hydrochloride 25 MG Oral Tablet ROGER ([facility]) Doxycycline Monohydrate 100 MG Oral Capsule ROGER ([facility]) Clotrimazole 10 MG/ML Topical Cream ROGER ([facility]) Cholecalciferol 1000 UNT Oral Tablet ROGER ([facility]) Cephalexin 500 MG Oral Capsule ROGER ([facility]) buspirone hydrochloride 5 MG Oral Tablet ROGER ([facility]) Buprenorphine 8 MG / Naloxone 2 MG Oral Strip ROGER ([facility]) Buprenorphine 4 MG / Naloxone 1 MG Oral Strip ROGER ([facility]) Buprenorphine 2 MG / Naloxone 0.5 MG Oral Strip ROGER ([facility])
[2021-09-16 18:05] LABS: AMPHETAMINES LEVEL URINE POSITIVE (NEGATIVE); BARBITURATES URINE NEGATIVE (NEGATIVE); BENZODIAZEPINES URINE NEGATIVE (NEGATIVE); CANNABINOIDS URINE POSITIVE (NEGATIVE); COCAINE METABOLITE URINE NEGATIVE (NEGATIVE); METHADONE URINE NEGATIVE (NEGATIVE); OPIATES URINE NEGATIVE (NEGATIVE); PHENCYCLIDINE URINE NEGATIVE (NEGATIVE)
[2021-09-17 10:25] LABS: RSV AMPLIFICATION NEGATIVE (NEGATIVE)
--- NOTE | 2021-09-17 13:02 | MHIPNPDOC ---
[facility] Progress Note Progress Note DATE OF SERVICE: 09/17/21 HISTORY: 25-year-old man with a history of polysubstance use who was admitted for psychotic features in the context of recent use of amphetamine-based stimula nts and heroin. Today he appears much clear, he endorses no suicidal ideation as well as no auditory visual hallucinations and no paranoia. Although he is closed off he is willing to engage in the interview and states primarily he would like to go home. Collateral information has been obtained from his housemates who have no concerns for his safety and believe he should return home at this time as well. Denies having any outpatient psychiatric follow-up and denies any desire for the same. VITAL SIGNS: See below. NEW TEST RESULTS: See below. CURRENT MEDICATIONS: See below. MENTAL STATUS EXAMINATION: Patient is a 25-year old male, who is male. Speech: Is speech was spontaneous, clear, with regular rate, rhythm, and volume. Language skills are intact. Thought processes including: Linear, logical, goal oriented. Thought content: Denies SI, HI, AVH; would like to return home so that he can relax. Abstract reasoning, and computation: Intact. Description of associations: Linear. Description of abnormal or psychotic thoughts: Denies HI or AVH, no paranoia or delusions detected. Judgment: Poor to fair. Insight: Fair. Orientation: X3. Recent and remote memory: Intact. Attention span and concentration: Intact. Mood: "I am okay". Affect: Neutral, tired, congruent to stated mood and thought content. DIAGNOSES: 1. Unspecified psychotic disorder, likely secondary to substance use. 2. Amphetamine use disorder. 3. Opioid use disorder. ASSESSMENT: Patient appears to be at baseline and is currently stable. There are no concerns from those who he lives with. At this time he denies any need for treatment, and is not interested in seeking counseling for his substance use. Recommended that he do so, however Lane is not interested in following up with this. 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 Currently does not appear to be an indication for hospitalization at this time as the psychotic symptoms appear to be primarily in the setting of active intoxication. MANAGEMENT PLAN: Discharge to home, denies need for psychiatric follow-up at this time. TIME SPENT: 15 minutes. Vital Signs Vital Signs Date Time Temp Pulse Resp B/P (MAP) Pulse Ox O2 Delivery O2 Flow Rate FiO2 09/17/21 08:09 98.3 81 18 136/73 (94) 96 09/16/21 06:31 Room Air Laboratory Data 24H Labs Laboratory Tests 2 09/17/21 09:32: Coronavirus (COVID-19)(PCR) NEGATIVE, Influenza Type A (RT-PCR) NEGATIVE, Influenza Type B (RT-PCR) NEGATIVE, Respiratory Syncytial Virus (PCR) NEGATIVE Current Medications Current Medications Medications (Trade) Dose Ordered Sig/Abhinav Route PRN Reason Start Time Stop Time Status Last Admin Dose Admin Home Med (Home Med List Complete!) ASDIRECTED XX 09/15/21 20:10 09/15/21 20:12 DC Lorazepam (Ativan) 2 mg STAT STAT IM 09/15/21 19:26 09/15/21 19:27 DC 09/15/21 19:38 Allergies Coded Allergies: Penicillins (Verified Allergy, Intermediate, 01/10/21) HUGH MENESES MD Sep 17, 2021 13:02
[2021-09-17 18:18] VITALS: BP 123/61
--- NOTE | 2021-09-17 19:28 | ECGEPIP ---
[facility] - ED Test Date: 2021-09-17 Pat Name: RIANE ZARATE Department: Room: - Gender: Male [employer] Interpreter: SADIE : 1995 Requested By: Yvan Mari Order Number: [id number] Reading MD: Yvan Mari Measurements Intervals [place] Rate: 93 P: 83 TX: 156 QRS: 96 QRSD: 90 T: 77 QT: 370 QTc: 460 Interpretive Statements Normal sinus rhythm Right atrial enlargement Rightward axis Pulmonary disease pattern Poor R wave progression Nonspecific ST T wave changes Prolonged QTc cw 03/15/[address] T wave changes Electronically Signed on 09-17-2021 19:28:06 EST by Yvan Mari
== END 2021-09-17 18:20 | disposition home or self-care (01) ==
LOC: M ED 19:03
DX: F19.10 Other psychoactive substance abuse, uncomplicated (principal); Z88.0 Allergy status to penicillin
CPT/HCPCS: 80048; 80076; 80143; 80307; 82077; 82550; 84443; 85027; 87631; 93005; 96372; 99284; J2060

== ENCOUNTER 2021-09-23 16:30 | Emergency (ER) | payer OTHER ==
[~2021-09-23] VITALS: Ht 182.9 cm; Wt 60.5 kg
[2021-09-23] MEDS ORDERED: LORazepam 2 MG/ML VIAL IV STA (16:37)
--- OUTSIDE RECORDS SUMMARY | 2021-09-23 16:38 | CCD ---
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 (applies to non-numeric resul ts) [facility] Result based on MDRD formula. Glucose Level 110 mg/dL 74-99 Above high normal [facility] The reference range is only applicable w hen fasting. Calcium-Uncorrected 8.4-10.2 Normal (applies to non-nume iza results) [facility] Corrected Calcium 8.4-10.2 Normal (applies to non-numeri c results) [facility] Bilirubin,Total 0.2-1.3 Normal (applies to non-numeric results) [facility] Bilirubin,Direct 0.0-0.3 Normal (applies to non-numeric results) [facility] SGOT(AST) 79 U/L 17-59 Above high normal [facility] SGPT(ALT) 51 U/L 21-72 Normal (applies to non-numeric resul ts) [facility] Alkaline Phosphatase 71 U/L 38-126 Normal (applies to non-num ezb results) [facility] can increase Alkaline Phosp le vels up to 2 times the normal adult value. Normal values for children and adolescents are 2 to 3 times the normal adult value. CPK 695 U/L 39-308 Above high normal [facility] Total Protein 6.3-8.2 Normal (applies to non-numeric re sults) [facility] Albumin 3.5-5.0 Normal (applies to non-numeric resul ts) [facility] Thyroid Stimulate Hormone TSH 0.358-3.740 No rmal (applies to non-numeric results) [facility] ID Date Data Source [id number] 11/01/2020 10:01:00 AM EST [facility] Name Value Range Interpretation Code Description Data Hedy rce(s) Supporting Document(s) Magnesium 1.80-2.40 Normal (applies to non-numeric resul ts) [facility] ID Date Data Source [id number] 11/01/2020 10:01:00 AM [facility] Name Value Range Interpretation Code Description Data Hedy rce(s) Supporting Document(s) C-Reactive Protein,Wide Range <3.00 Above high normal [facility] ID Date Data Source [id number] 11/01/2020 09:31:00 AM [facility] Name Value Range Interpretation Code Description Data Hedy rce(s) Supporting Document(s) White Blood Count 4.8-10.8 Normal (applies to non-numeri c results) [facility] Red Blood Count 4.35-6.08 Normal (applies to non-numeric results) [facility] Hemoglobin 13.0-17.5 Normal (applies to non-numeric resul ts) [facility] Hematocrit 37.7-51.0 Normal (applies to non-numeric resul ts) [facility] Mean Corpuscular Volume 80-94 Normal (applies to non- numeric results) [facility] Mean Corpuscular Hemoglobin 27.0-33.0 Normal (appli es to non-numeric results) [facility] Mean Corpuscular HGB Conc 32.0-36.0 Normal (applies to no n-numeric results) [facility] Red Cell Distribution Width 11.5-14.5 Normal (appli es to non-numeric results) [facility] Platelet Count 207 X10 3/uL 130-450 Normal (applies to non-numeric results) [facility] Mean Platelet Volume 9.6-13.1 Normal (applies to non-num zeb results) [facility] Imm Grans% (AUTO) 0 % 0-2 Normal (applies to non-numeri c results) [facility] Neutrophils % (AUTO) 52 % 40-75 Normal (applies to non-num zeb results) [facility] Lymphocytes % (AUTO) 29 % 21-46 Normal (applies to non-num zeb results) [facility] Monocytes % (AUTO) 11 % 5-12 Normal (applies to non-numer ic results) [facility] Eosinophils % (AUTO) 7 % 1-5 Above high normal [facility] Basophils % (AUTO) 1 % 0-1 Normal (applies to non-numer ic results) [facility] Imm Grans# (AUTO) 0.0-0.5 Normal (applies to non-numeri c results) [facility] Neutrophils # (AUTO) 1.5-8.1 Normal (applies to non-num zeb results) [facility] Lymphocytes # (AUTO) 1.0-3.1 Normal (applies to non-num zeb results) [facility] Monocytes # (AUTO) 0.2-1.3 Normal (applies to non-numer ic results) [facility] Eosinophils# (AUTO) 0.0-0.5 Normal (applies to non-nume iza results) [facility] Basophils # (AUTO) 0.0-0.1 Normal (applies to non-numer ic results) [facility] ID Date Data Source [id number] 11/07/2020 02:28:00 PM EST [facility] Name Value Range Interpretation Code Description Data Hedy rce(s) Supporting Document(s) Cannabinoids Confirm,Ur result . Very abnor mal (applies to non-numeric units [facility] Carboxy THC GC/MS Conf 92 ng/mL Cutoff=10 01 Performed at: [facility] [address] [id number] Drafter Detail: Dari Daniel MD, Phone: [phone] ID Date Data Source [id number] 10/31/2020 09:06:00 PM EST [facility] Name Value Range Interpretation Code Description Data Hedy rce(s) Supporting Document(s) Opiate Screen,Urine Negative Normal (applies to non-nume iza results) [facility] Amphetamine Screen,Urine Negative [place] [facility] Benzodiazepines Scrn,Ur result Negative N ormal (applies to non-numeric results) [facility] Cocaine Screen,Urine Negative Normal (applies to non-num zeb results) [facility] Methadone Screen,Urine Negative Normal (applies to non-n umeric results) [facility] Cannabinoid Screen, Ur Negative [place] [facility] Therapeutic Drug Ranges for Emergency an d Rehabilitation Threshold Levels (ng/mL) Cocaine 300 Opiates 300 Cannabinoids 50 Barbiturates 200 Benzodiazepine 200 Methadone 300 Amphetamines 1000 All positive findings are presumptive and unconfirmed. Confirmation of positive results are performed only at request of provider. Unconfirmed results must not be used for non-medical purposes (i.e. pre-employment and legal purposes) ID Date Data Source [id number] 10/31/2020 06:32:00 PM EST [facility] Name Value Range Interpretation Code Description Data Hedy rce(s) Supporting Document(s) Respiratory specimen severe acute respir atory syndrome coronavirus 2 (SARS-CoV-2) RNA [facility] This lab was ordered by [facility] marissa and reported by [facility]. ID Date Data Source [id number] 10/31/2020 06:18:00 PM [facility] Name Value Range Interpretation Code Description Data Hedy rce(s) Supporting Document(s) SARS-CoV-2 RNA Negative Normal (applies to non-numeric r esults) [facility] Negative results should be treated as pr [...] Certificate of Accreditation. Factsheets for healthcare providers: https://www.fda.gov/media/316642/download Factsheets for patients: https://www.fda.gov/media/558228/download The ID NOW Instrument is a rapid molecular in vitro diagnostic test utilizing an isothermal nucleic acid amplification technology intended for the qualitative detection of nucleic acid from the SARS-CoV-2 viral RNA. THIS IS A STATE REPORTABLE COMMUNICABLE DISEASE. Manual entry verified by Tessie Goodwin 10/31/201816 ID Date Data Source [id number] 10/31/2020 11:55:00 PM EST [facility] Name Value Range Interpretation Code Description Data Hedy rce(s) Supporting Document(s) Color,Urine Yellow Normal (applies to non-numeric resu lts) [facility] Clarity,Urine Clear Normal (applies to non-numeric re sults) [facility] Specific [place],Urine 1.001-1.030 Normal (applies to non- numeric results) [facility] PH,Urine 5.0-8.0 Normal (applies to non-numeric resul ts) [facility] Protein,Urine Negative Normal (applies to non-numeric re sults) [facility] Glucose,Urine (UA) Negative Normal (applies to non-numer ic results) [facility] Ketones,Urine Negative [facility] Blood,Urine Negative Normal (applies to non-numeric resu lts) [facility] Bilirubin,Urine Negative Normal (applies to non-numeric results) [facility] Urobilinogen,Urine Norm 0.2-1 Normal (applies to non-numer ic results) [facility] Leukocyte Esterase,Urine Negative Normal (applies to non -numeric results) [facility] Nitrite,Urine Negative Normal (applies to non-numeric re sults) [facility] Procedure Social History No Information Vital Signs ID Date Data Source [id number] Name Value Range Interpretation Code Description Data Source(s) Systolic blood pressure 104.0 MM[HG] 104.0 MM[H G] NETSMART ([facility]) Diastolic blood pressure 61.0 MM[HG] 61.0 MM[HG ] [facility]SM[facility] ([facility]) Heart rate 94.0 /MIN 94.0 /MIN [facility] ([facility]) Respiratory rate 16.0 /MIN 16.0 /MIN [facility]SMART ([facility]) Systolic blood pressure 117.0 MM[HG] 117.0 MM[H G] [facility]SMART ([facility]) Body temperature 97.7 [DEGF] 97.7 [DEGF] NETSMA RT ([facility]) Body temperature 36.5 ARA 36.5 ARA [facility]SMART ([facility]) Diastolic blood pressure 62.0 MM[HG] 62.0 MM[HG ] [facility]SMART ([facility]) Heart rate 64.0 /MIN 64.0 /MIN [facility]SMART ([facility]) Body temperature 97.8 [DEGF] 97.8 [DEGF] NETSMA RT ([facility]) Body temperature 36.6 ARA 36.6 ARA NETSMART ([facility]) Heart rate 90.0 /MIN 90.0 /MIN [facility]SMART ([facility]) Respiratory rate 16.0 /MIN 16.0 /MIN NETSMART ([facility]) Systolic blood pressure 110.0 MM[HG] 110.0 MM[H G] NETSMART ([facility]) Diastolic blood pressure 66.0 MM[HG] 66.0 MM[HG ] [facility]SMART ([facility]) Body temperature 97.3 [DEGF] 97.3 [DEGF] NETSMA RT ([facility]) Body temperature 36.3 ARA 36.3 [...] 74.0 /MIN [facility]SMART ([facility]) Body height 182.9 cm 182.9 cm [facility] Body weight 63.6 KG 63.6 KG [facility] ([facility]) Body mass index (BMI) [Ratio] 19.0 19.0 [facility]SMART ([facility]) Systolic blood pressure 131.0 MM[HG] 131.0 MM[H G] [facility]SMART ([facility]) Respiratory rate 16.0 /MIN 16.0 /MIN NETSMART ([facility]) Oxygen saturation in Arterial blood by Pulse oximetry 100.0 % 100.0 % NETSMART ([facility]) [place] body weight 178 [lb_av] 178 [lb_av] MEDEN T ([facility], ) Respiratory rate 12 /min 12 /min MEDENT ( [facility], ) Body height 72 [in_i] 72 [in_i] MEDENT ([facility], ) 6'0" Body weight 145.00 [lb_av] 145.00 [lb_av] BEBETO T ([facility]) Body mass index (BMI) [Ratio] 19.7 kg/m2 19.7 k g/m2 MEDENT ([facility]) Body height 72 [in_i] 72 [in_i] ROGER ([facility]) Diastolic blood pressure 62 mm[Hg] 62 mm[Hg] ROGER ([facility]) Body height 72 [in_i] 72 [in_i] ROGER ([facility]) Body mass index (BMI) [Ratio] 19.4 kg/m2 19.4 k g/m2 ROGER ([facility]) Systolic blood pressure 98 mm[Hg] 98 mm[Hg] A YAREDA ([facility]) Body weight 2290 [oz_av] 2290 [oz_av] ROGER ([facility]) Diastolic blood pressure 62 mm[Hg] 62 mm[Hg] ROGER ([facility]) Body height 72 [in_i] 72 [in_i] ROGER ([facility]) Body mass index (BMI) [Ratio] 19.4 kg/m2 19.4 k g/m2 ROGER ([facility]) Systolic blood pressure 98 mm[Hg] 98 mm[Hg] A YAREDA ([facility]) Body weight 2290 [oz_av] 2290 [oz_av] ROGER ([facility]) Body temperature 36.4 ARA 36.4 ARA [facility]SMART ([facility]) Heart rate 72.0 /MIN 72.0 /MIN NETSMART ([facility]) Respiratory rate 14.0 /MIN 14.0 /MIN [facility]SM[facility] ([facility]) Systolic blood pressure 122.0 MM[HG] 122.0 MM[H G] [facility]SMART ([facility]) Diastolic blood pressure 68.0 MM[HG] 68.0 MM[HG ] [facility]SMART ([facility]) Body temperature 97.6 [DEGF] 97.6 [DEGF] NETSMA RT ([facility]) Body temperature 36.6 ARA 36.6 ARA [facility]SMART ([facility]) Body temperature 97.8 [DEGF] 97.8 [DEGF] NETSMA RT ([facility]) Respiratory rate 17.0 /MIN 17.0 /MIN NETSMART ([facility]) Systolic blood pressure 114.0 MM[HG] 114.0 MM[H G] [facility]SMART ([facility]) Diastolic blood pressure 74.0 MM[HG] 74.0 MM[HG ] [facility]SMART ([facility]) Heart rate 92.0 /MIN 92.0 /MIN [facility]SMART ([facility]) Body temperature 98.2 [DEGF] 98.2 [DEGF] [...] [DEGF] 97.8 [DEGF] NETSMA RT ([facility]) Heart rate 91.0 /MIN 91.0 /MIN [facility]SMART ([facility]) Respiratory rate 16.0 /MIN 16.0 /MIN [facility]SMART ([facility]) Systolic blood pressure 107.0 MM[HG] 107.0 MM[H G] NETSMART ([facility]) Diastolic blood pressure 62.0 MM[HG] 62.0 MM[HG ] [facility]SMART ([facility]) Body temperature 36.6 ARA 36.6 ARA [facility]SM[facility] ([facility]) Oxygen saturation in Arterial blood by Pulse oximetry 99.0 % 99.0 % [facility]SM[facility] ([facility]) ID Date Data Source [id number] 11/16/2020 09:35:[address] [facility] Name Value Range Interpretation Code Description Data Source(s) Weight Measurement Method 1 1 [facility] Weight (Calculated Kilograms) 59.42 59.42 [facility] Weight 5379 6 [facility] Temperature Source 7 7 [facility] Temperature 97.6 97.6 [facility] Respiratory Effort 1 1 [facility] Respiratory Rate 16 16 [facility] Pulse Assessment Method 4 4 [facility] Pulse Rate 66 66 [facility] Height (Calculated Centimeters) 180.34 180. 34 [facility] Height 71 71 [facility] Blood Pressure 130/55 130/55 [facility] Body Mass Index (BMI) 18.2 18.2 [facility] Weight Measurement Method 1 1 [facility] Weight (Calculated Kilograms) 59.42 59.42 [facility] Weight 2095 2095 [facility] Temperature Source 7 7 [facility] Temperature 97.6 97.6 [facility] Respiratory Effort 1 1 [facility] Respiratory Rate 16 16 [facility] Pulse Assessment Method 4 4 [facility] Pulse Rate 66 66 [facility] Height (Calculated Centimeters) 180.34 180. 34 [facility] Height 71 71 [facility] Blood Pressure 130/55 130/55 [facility] Body Mass Index (BMI) 18.2 18.2 [facility] Weight Measurement Method 1 1 [facility] Weight (Calculated Kilograms) 59.42 59.42 [facility] Weight 2095 2095 [facility] Temperature Source 7 7 [facility] Temperature 97.6 97.6 [facility] Respiratory Effort 1 1 [facility] Respiratory Rate 16 16 [facility] Pulse Assessment Method 4 4 [facility] Pulse Rate 66 66 [facility] Height (Calculated Centimeters) 180.34 180. 34 [facility] Height 71 71 [facility] Blood Pressure 130/55 130/55 [facility] Body Mass Index (BMI) 18.2 18.2 [facility] Weight Measurement Method 1 1 [facility] Weight (Calculated Kilograms) 59.42 59.42 [facility] Weight 2095 2095 [facility] Temperature Source 7 7 [facility] Temperature 96.7 96.7 [facility] Respiratory Effort 1 1 [facility] Respiratory Rate 16 16 [facility] Pulse Assessment Method 4 4 [facility] Pulse Rate 49 49 [facility] Height (Calculated Centimeters) 180.34 180. 34 [facility] Height 71 71 [facility] Blood Pressure 96/56 96/56 [facility] Body Mass Index (BMI) 18.2 18.2 [facility] Weight Measurement Method 1 1 [facility] Weight (Calculated Kilograms) 59.42 59.42 [facility] Weight 6 6 [facility] Temperature Source 7 7 [facility] Temperature 96.7 96.7 [facility] Respiratory Effort 1 1 [facility] Respiratory Rate 15 15 [facility] Pulse Assessment Method 3 3 [facility] Pulse Rate 72 72 [facility] Height (Calculated Centimeters) 180.34 180. 34 [facility] Height 71 71 [facility] Blood Pressure 110/68 110/68 [facility] Body Mass Index (BMI) 18.2 18.2 [facility] Weight Measurement Method 1 1 [facility] Weight (Calculated Kilograms) 59.42 59.42 [facility] Weight 6 6 [facility] Temperature Source 7 7 [facility] Temperature 98.0 98.0 [facility] Respiratory Effort 1 1 [facility] Respiratory Rate 16 16 [facility] Pulse Assessment Method 4 4 [facility] Pulse Rate 76 76 [facility] Height (Calculated Centimeters) 180.34 180. 34 [facility] Height 71 71 [facility] Blood Pressure 128/60 128/60 [facility] Body Mass Index (BMI) 18.2 18.2 [facility] Patient Treatment Plan of Care Planned Activity Planned Date Details Description Data Source (s) Tab-A-Bipin 400 mcg tablet TAKE ONE TABLET BY MOUTH EVERY DAY ROGER ([facility]) Sulfamethoxazole 800 MG / Trimethoprim 160 MG Oral Tablet MELROSE ([facility]) quetiapine 50 MG Oral Tablet [facility] ([facility]) Nicotine 4 MG Chewing Gum AT [facility] ([facility]) Narcan 4 mg/actuation nasal spray SPRAY 2 SPRAYS 4MG IN EACH NOSTRIL DIRECTED FOR SUSPECTED OPOID OVERDOSE AND CALL 911 [facility]SE ([facility]) methylprednisolone 4 mg tablets in a dose pack USE DIRECTED ROGER ([facility]) Levofloxacin 250 MG Oral Tablet ROGER ([facility]) Ibuprofen 800 MG Oral Tablet ROGER ([facility]) Hydroxyzine Hydrochloride 25 MG Oral Tablet ROGER ([facility]) Doxycycline Monohydrate 100 MG Oral Capsule ROGER ([facility]) Clotrimazole 10 MG/ML Topical Cream ROGER ([facility]) Cholecalciferol 1000 UNT Oral Tablet ROGER ([facility]) Cephalexin 500 MG Oral Capsule ROGER ([facility]) buspirone hydrochloride 5 MG Oral Tablet ROGER ([facility]) Buprenorphine 8 MG / Naloxone 2 MG Oral Strip ROGER ([facility]) Buprenorphine 4 MG / Naloxone 1 MG Oral Strip ROGER ([facility]) Buprenorphine 2 MG / Naloxone 0.5 MG Oral Strip ROGER ([facility]) Tab-A-Bipin 400 mcg tablet TAKE ONE TABLET BY MOUTH EVERY DAY ROGER ([facility]) quetiapine 50 MG Oral Tablet ROGER ([facility]) Nicotine 4 MG Chewing Gum AT [facility]) Narcan 4 mg/actuation nasal spray SPRAY 2 SPRAYS 4MG IN EACH NOSTRIL DIRECTED FOR SUSPECTED OPOID OVERDOSE AND CALL 911 ROGER ([facility]) methylprednisolone 4 mg tablets in a dose pack USE DIRECTED ROGER ([facility]) Ibuprofen 800 MG Oral Tablet ROGER ([facility]) Hydroxyzine Hydrochloride 25 MG Oral Tablet ROGER ([facility]) Doxycycline Monohydrate 100 MG Oral Capsule ROGER ([facility]) Clotrimazole 10 MG/ML Topical Cream ROGER ([facility]) Cholecalciferol 1000 UNT Oral Tablet ROGER ([facility]) Cephalexin 500 MG Oral Capsule ROGER ([facility]) buspirone hydrochloride 5 MG Oral Tablet ROGER ([facility]) Buprenorphine 8 MG / Naloxone 2 MG Oral Strip ROGER ([facility]) Buprenorphine 4 MG / Naloxone 1 MG Oral Strip ROGER ([facility]) Buprenorphine 2 MG / Naloxone 0.5 MG Oral Strip ROGER ([facility])
[2021-09-23] MEDS ORDERED: ALBU8.5H (16:40)
[2021-09-23] MEDS ORDERED: NS 1,000 ML IV ONE (16:40)
[2021-09-23] MEDS ORDERED: LORazepam 2 MG/ML VIAL As Ordered ONE (16:44)
[2021-09-23 17:26] LABS: BASO # 0.1 10^3/uL (0.0-0.2); BASO % 0.4 % (0.0-1.0); EOS # 0.2 10^3/uL (0.0-0.5); EOS % 1.9 % (0.0-3.0); HEMATOCRIT 43.6 % (42.0-52.0); HEMOGLOBIN 13.4 g/dl (13.5-17.5); MEAN CORPUSCULAR HEMOGLOBIN 30.9 pg (27.0-33.0); MEAN CORPUSCULAR HGB CONC 30.7 g/dl (32.0-36.5); MEAN CORPUSCULAR VOLUME 100.5 fl (80.0-96.0); MONO # 1.1 10^3/uL (0.0-0.8); MONO % 8.7 % (2.0-8.0); NEUTROPHILS # 6.9 10^3/uL (1.5-8.5); NEUTROPHILS % 55.2 % (36.0-66.0); PLATELET COUNT, AUTOMATED 376 10^3/uL (150-450); RED BLOOD COUNT 4.34 10^6/uL (4.30-6.10); WHITE BLOOD COUNT 12.4 10^3/uL (4.0-10.0)
[2021-09-23 17:36] LABS: ACETAMINOPHEN LEVEL < 2.0 UG/ML (10.0-30.0); ALBUMIN 3.5 GM/DL (3.2-5.2); ALT/SGPT 77 U/L (12-78); BILIRUBIN,DIRECT 0.1 MG/DL (0.0-0.2); BILIRUBIN,TOTAL 0.3 MG/DL (0.2-1.0); BLOOD UREA NITROGEN 10 MG/DL (7-18); CALCIUM LEVEL 9.2 MG/DL (8.5-10.1); CARBON DIOXIDE LEVEL 18 MEQ/L (21-32); CHLORIDE LEVEL 105 MEQ/L (98-107); CREATININE FOR GFR 1.32 MG/DL (0.70-1.30); ETHYL ALCOHOL (ETHANOL) < 0.003 % (0.000-0.010); GLOMERULAR FILTRATION RATE > 60.0 (>60); GLUCOSE, FASTING 160 MG/DL (70-100); POTASSIUM SERUM 3.6 MEQ/L (3.5-5.1); SALICYLATE LEVEL 1.8 MG/DL (5.0-30.0); SODIUM LEVEL 142 MEQ/L (136-145); TOTAL PROTEIN 7.2 GM/DL (6.4-8.2)
[2021-09-23 20:45] VITALS: BP 105/58
--- OUTSIDE RECORDS SUMMARY | 2021-09-23 21:13 | CCD ---
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 Document(s) Vitamin D,Total (25OH) 30.0-100.0 Below low normal [facility] Reference Range: <10 ng/mL: Deficien t 10-30 ng/mL: Insufficient 30-100 ng/mL: Sufficient >100 ng/mL: Toxicity possible ID Date Data Source [id number] 11/01/2020 10:54:00 AM [facility] Value Range Interpretation Code Description Data Hedy rce(s) Supporting Document(s) Syphilis Serology Nonreactive Normal (applies to non-numer ic results) [facility] ID Date Data Source [id number] 11/01/2020 10:01:00 AM EST [facility] Name Value Range Interpretation Code Description Data [facility] rce(s) Supporting Document(s) Sodium 139 mmol/L 137-145 Normal (applies to non-numeric resul ts) [facility] Potassium 3.5-5.1 Normal (applies to non-numeric resul ts) [facility] Chloride 106 mmol/L 98-112 Normal (applies to non-numeric resul ts) [facility] Carbon Dioxide CO2 22.0-33.0 Normal (applies to non-numer ic results) [facility] Anion Gap 4.0-11.0 Normal (applies to non-numeric resul ts) [facility] BUN 17 mg/dL 9-20 Normal (applies to non-numeric resul ts) [facility] Creatinine 0.80-1.50 Normal (applies to non-numeric resul ts) [facility] GFR 88 mL/min >60 Normal (applies to non-numeric resul ts) [facility] Result based on MDRD formula. Glucose Level 110 mg/dL 74-99 Above high normal [facility] The reference range is only applicable w hen fasting. Calcium-Uncorrected 8.4-10.2 Normal (applies to non-nume iza results) [facility] Corrected Calcium 8.4-10.2 Normal (applies to non-numeri c results) [facility] Bilirubin,Total 0.2-1.3 Normal (applies to non-numeric results) [facility] Bilirubin,Direct 0.0-0.3 Normal (applies to non-numeric results) [facility] SGOT(AST) 79 U/L 17-59 Above high normal [facility] SGPT(ALT) 51 U/L 21-72 Normal (applies to non-numeric resul ts) [facility] Alkaline Phosphatase 71 U/L 38-126 Normal (applies to non-num zeb results) [facility] can increase Alkaline Phosp le vels up to 2 times the normal adult value. Normal values for children and adolescents are 2 to 3 times the normal adult value. CPK 695 U/L 39-308 Above high normal [facility] Total Protein 6.3-8.2 Normal (applies to non-numeric re sults) [facility] Albumin 3.5-5.0 Normal (applies to non-numeric resul ts) [facility] Thyroid Stimulate Hormone TSH 0.358-3.740 No rmal (applies to non-numeric results) [facility] ID Date Data Source [id number] 11/01/2020 10:01:00 AM EST [facility] Name Value Range Interpretation Code Description Data Hedy rce(s) Supporting Document(s) Magnesium 1.80-2.40 Normal (applies to non-numeric resul ts) [facility] ID Date Data Source [id number] 11/01/2020 10:01:00 AM [facility] Name Value Range Interpretation Code Description Data Hedy rce(s) Supporting Document(s) C-Reactive Protein,Wide Range <3.00 Above high normal [facility] ID Date Data Source [id number] 11/01/2020 09:31:00 AM EST [facility] Name Value Range Interpretation Code Description Data Hedy rce(s) Supporting Document(s) White Blood Count 4.8-10.8 Normal (applies to non-numeri c results) [facility] Red Blood Count 4.35-6.08 Normal (applies to non-numeric results) [facility] Hemoglobin 13.0-17.5 Normal (applies to non-numeric resul ts) [facility] Hematocrit 37.7-51.0 Normal (applies to non-numeric resul ts) [facility] Mean Corpuscular Volume 80-94 Normal (applies to non- numeric results) [facility] Mean Corpuscular Hemoglobin 27.0-33.0 Normal (appli es to non-numeric results) [facility] Mean Corpuscular HGB Conc 32.0-36.0 Normal (applies to no n-numeric results) [facility] Red Cell Distribution Width 11.5-14.5 Normal (appli es to non-numeric results) [facility] Platelet Count 207 X10 3/uL 130-450 Normal (applies to non-numeric results) [facility] Mean Platelet Volume 9.6-13.1 Normal (applies to non-num zeb results) [facility] Imm Grans% (AUTO) 0 % 0-2 Normal (applies to non-numeri c results) [facility] Neutrophils % (AUTO) 52 % 40-75 Normal (applies to non-num zeb results) [facility] Lymphocytes % (AUTO) 29 % 21-46 Normal (applies to non-num zeb results) [facility] Monocytes % (AUTO) 11 % 5-12 Normal (applies to non-numer ic results) [facility] Eosinophils % (AUTO) 7 % 1-[address] [facility] Basophils % (AUTO) 1 % 0-1 Normal (applies to non-numer ic results) [facility] Imm Grans# (AUTO) 0.0-0.5 Normal (applies to non-numeri c results) [facility] Neutrophils # (AUTO) 1.5-8.1 Normal (applies to non-num zeb results) [facility] Lymphocytes # (AUTO) 1.0-3.1 Normal (applies to non-num zeb results) [facility] Monocytes # (AUTO) 0.2-1.3 Normal (applies to non-numer ic results) [facility] Eosinophils# (AUTO) 0.0-0.5 Normal (applies to non-nume iza results) [facility] Basophils # (AUTO) 0.0-0.1 Normal (applies to non-numer ic results) [facility] ID Date Data Source [id number] 11/07/2020 02:28:00 PM EST [facility] Name Value Range Interpretation Code Description Data Hedy rce(s) Supporting Document(s) Cannabinoids Confirm,Ur result . Very abnor mal (applies to non-numeric units [facility] Carboxy THC GC/MS Conf 92 ng/mL Cutoff=10 01 Performed at: [address] [id number] [place]: Dari Daniel MD, Phone: [phone] ID Date Data Source [id number] 10/31/2020 09:06:00 PM EST [facility] Name Value Range Interpretation Code Description Data Hedy rce(s) Supporting Document(s) Opiate Screen,Urine Negative Normal (applies to non-nume iza results) [facility] Amphetamine Screen,Urine Negative [place] [facility] Benzodiazepines Scrn,Ur result Negative N ormal (applies to non-numeric results) [facility] Cocaine Screen,Urine Negative Normal (applies to non-num zeb results) [facility] Methadone Screen,Urine Negative Normal (applies to non-n umeric results) [facility] Cannabinoid Screen, Ur Negative [place] [facility] Therapeutic Drug Ranges for Emergency an d Rehabilitation Threshold Levels (ng/mL) Cocaine 300 Opiates 300 Cannabinoids 50 Barbiturates 200 Benzodiazepine 200 Methadone 300 Amphetamines 1000 All positive findings are presumptive and unconfirmed. Confirmation of positive results are performed only at request of provider. Unconfirmed results must not be used for non-medical purposes (i.e. pre-employment and legal purposes) ID Date Data Source [id number] 10/31/2020 06:32:00 PM EST [facility] Name Value Range Interpretation Code Description Data Hedy rce(s) Supporting Document(s) Respiratory specimen severe acute respir atory syndrome coronavirus 2 (SARS-CoV-2) RNA [facility] This lab was ordered by [facility] marissa and reported by [facility]. ID Date Data Source [id number] 10/31/2020 06:18:00 PM EST [facility] Name Value Range Interpretation Code Description Data Hedy rce(s) Supporting Document(s) SARS-CoV-2 RNA Negative Normal (applies to non-numeric r esults) [facility] Negative results should be treated as [...] Certificate of Accreditation. Factsheets for healthcare providers: https://www.fda.gov/media/550341/download Factsheets for patients: https://www.fda.gov/media/595310/download The ID NOW Instrument is a rapid molecular in vitro diagnostic test utilizing an isothermal nucleic acid amplification technology intended for the qualitative detection of nucleic acid from the SARS-CoV-2 viral RNA. THIS IS A STATE REPORTABLE COMMUNICABLE DISEASE. Manual entry verified by Tessie Goodwin 10/31/207 ID Date Data Source [id number] 10/31/2020 11:55:00 PM EST [facility] Name Value Range Interpretation Code Description Data Hedy rce(s) Supporting Document(s) Color,Urine Yellow Normal (applies to non-numeric resu lts) [facility] Clarity,Urine Clear Normal (applies to non-numeric re sults) [facility] Specific [place],Urine 1.001-1.030 Normal (applies to non- numeric results) [facility] PH,Urine 5.0-8.0 Normal (applies to non-numeric resul ts) [facility] Protein,Urine Negative Normal (applies to non-numeric re sults) [facility] Glucose,Urine (UA) Negative Normal (applies to non-numer ic results) [facility] Ketones,Urine Negative [facility] ospital Blood,Urine Negative Normal (applies to non-numeric resu lts) [facility] Bilirubin,Urine Negative Normal (applies to non-numeric results) [facility] Urobilinogen,Urine Norm 0.2-1 Normal (applies to non-numer ic results) [facility] Leukocyte Esterase,Urine Negative Normal (applies to non -numeric results) [facility] Nitrite,Urine Negative Normal (applies to non-numeric re sults) [facility] Procedure Social History No Information Vital [...] MM[HG] 66.0 MM[HG ] [facility]SMART ([facility]) Heart rate 64.0 /MIN 64.0 /MIN [facility]SM[facility] ([facility]) Respiratory rate 16.0 /MIN 16.0 /MIN NETSMART ([facility]) Body temperature 97.3 [DEGF] 97.3 [DEGF] NETSMA RT ([facility]) Body temperature 36.3 ARA 36.3 ARA [facility]SM[facility] ([facility]) Systolic blood pressure 118.0 [...] [facility]SM[facility] ([facility]) Diastolic blood pressure 71.0 MM[HG] 71.0 MM[HG ] NETSMART ([facility]) Systolic blood pressure 131.0 MM[HG] 131.0 MM[H G] NETSMART ([facility]) Body weight 63.6 KG 63.6 KG [facility] ([facility]) Body mass index (BMI) [Ratio] 19.0 19.0 NETSMART ([facility]) Body height 182.9 cm 182.9 cm [facility]SMART ([facility]) Body temperature 98.7 [DEGF] 98.7 [DEGF] NETSMA RT ([facility]) Respiratory rate 16.0 /MIN 16.0 /MIN NETSMART ([facility]) Oxygen saturation in Arterial blood by Pulse oximetry 100.0 % 100.0 % NETSMART ([facility]) Respiratory rate 12 /min 12 /min MEDENT ( [facility] ) Body height 72 [in_i] 72 [in_i] MEDENT ([facility], ) 6'0" Body weight 145.00 [lb_av] 145.00 [lb_av] MEDEN T ([facility], ) Body mass index (BMI) [Ratio] 19.7 kg/m2 19.7 k g/m2 MEDENT ([facility] ) [place] body weight 178 [lb_av] 178 [lb_av] BEBETO T ([facility], ) Body height 72 [in_i] 72 [in_i] [facility] ([facility]) Diastolic blood pressure 62 mm[Hg] 62 mm[Hg] [facility] ([facility]) Body height 72 [in_i] 72 [in_i] [facility] ([facility]) Body mass index (BMI) [Ratio] 19.4 kg/m2 19.4 k g/m2 [facility] ([facility]) Systolic blood pressure 98 mm[Hg] 98 mm[Hg] A [facility] ([facility]) Body weight 2290 [oz_av] 2290 [oz_av] [facility] ([facility]) Diastolic blood pressure 62 mm[Hg] 62 mm[Hg] [facility] ([facility]) Body height 72 [in_i] 72 [in_i] [facility] ([facility]) Body mass index (BMI) [Ratio] 19.4 kg/m2 19.4 k g/m2 [facility] ([facility]) Systolic blood pressure 98 mm[Hg] 98 mm[Hg] A THENA ([facility]) Body weight 2290 [oz_av] 2290 [oz_av] [facility] ([facility]) Heart rate 72.0 /MIN 72.0 /MIN NETSMART ([facility]) Body temperature 36.4 ARA 36.4 ARA [...] MM[HG] 60.0 MM[HG ] NETSMART ([facility]) Respiratory rate 16.0 /MIN 16.0 /MIN NETSMART ([facility]) Systolic blood pressure 113.0 [...] 37.1 ARA NETSMART ([facility]) Body temperature 97.8 [DEGF] 97.8 [DEGF] NETSMA RT ([facility]) Body temperature 36.6 ARA 36.6 ARA NETSMART ([facility]) Heart rate 82.0 /MIN 82.0 /MIN [facility]SMART ([facility]) Respiratory rate 16.0 /MIN 16.0 /MIN NETSMART ([facility]) Systolic blood pressure 112.0 MM[HG] 112.0 MM[H G] NETSMART ([facility]) Diastolic blood pressure 70.0 MM[HG] 70.0 [...] NETSMART ([facility]) ID Date Data Source [id number] 11/16/2020 09:35:[address] [facility] Name Value Range Interpretation Code Description Data Source(s) Weight Measurement Method 1 1 [facility] Weight (Calculated Kilograms) 59.42 59.42 [facility] Weight 6 2095 [facility] Temperature Source 7 7 [facility] Temperature 97.6 97.6 [facility] Respiratory Effort 1 1 [facility] Respiratory Rate 16 16 [facility] Pulse Assessment Method [address] [facility] Pulse Rate 66 66 [facility] Height (Calculated Centimeters) 180.34 180. 34 [facility] Height 71 71 [facility] Blood Pressure 130/55 130/55 [facility] Body Mass Index (BMI) 18.2 18.2 [facility] Weight Measurement Method 1 1 [facility] Weight (Calculated Kilograms) 59.42 59.42 [facility] Weight 2095 2095 [facility] Temperature Source 7 7 [facility] Temperature 97.6 97.6 [facility] Respiratory Effort 1 1 [facility] Respiratory Rate 16 16 [facility] Pulse Assessment Method [address] [facility] Pulse Rate 66 66 [facility] Height (Calculated Centimeters) 180.34 180. 34 [facility] Height 71 71 [facility] Blood Pressure 130/55 130/55 [facility] Body Mass Index (BMI) 18.2 18.2 [facility] Weight Measurement Method 1 1 [facility] Weight (Calculated Kilograms) 59.42 59.42 [facility] Weight 2095 2095 [facility] Temperature Source 7 7 [facility] Temperature 97.6 97.6 [facility] Respiratory Effort 1 1 [facility] Respiratory Rate 16 16 [facility] Pulse Assessment Method [address] [facility] Pulse Rate 66 66 [facility] Height (Calculated Centimeters) 180.34 180. 34 [facility] Height 71 71 [facility] Blood Pressure 130/55 130/55 [facility] Body Mass Index (BMI) 18.2 18.2 [facility] Weight Measurement Method 1 1 [facility] Weight (Calculated Kilograms) 59.42 59.42 [facility] Weight 2095 2095 [facility] Temperature Source 7 7 [facility] Temperature 96.7 96.7 [facility] Respiratory Effort 1 1 [facility] Respiratory Rate 16 16 [facility] Pulse Assessment Method [address] [facility] Pulse Rate 49 49 [facility] Height (Calculated Centimeters) 180.34 180. 34 [facility] Height 71 71 [facility] Blood Pressure 96/56 96/56 [facility] Body Mass Index (BMI) 18.2 18.2 [facility] Weight Measurement Method 1 1 [facility] Weight (Calculated Kilograms) 59.42 59.42 [facility] Weight 6 6 [facility] Temperature Source 7 7 [facility] Temperature 96.7 96.7 [facility] Respiratory Effort 1 1 [facility] Respiratory Rate 15 15 [facility] Pulse Assessment Method [address] [facility] Pulse Rate 72 72 [facility] Height (Calculated Centimeters) 180.34 180. 34 [facility] Height 71 71 [facility] Blood Pressure 110/68 110/68 [facility] Body Mass Index (BMI) 18.2 18.2 [facility] Weight Measurement Method 1 1 [facility] Weight (Calculated Kilograms) 59.42 59.42 [facility] Weight 2096 6 [facility] Temperature Source 7 7 [facility] Temperature 98.0 98.0 [facility] Respiratory Effort 1 1 [facility] Respiratory Rate 16 16 [facility] Pulse Assessment Method 4 4 [facility] Pulse Rate 76 76 [facility] Height (Calculated Centimeters) 180.34 180. 34 [facility] Height 71 71 [facility] Blood Pressure 128/60 128/60 [facility] Body Mass Index (BMI) 18.2 18.2 [facility] Patient Treatment Plan of Care Planned Activity Planned Date Details Description Data Source (s) Tab-A-Bipin 400 mcg tablet TAKE ONE TABLET BY MOUTH EVERY DAY [facility] ([facility]) Sulfamethoxazole 800 MG / Trimethoprim 160 MG Oral Tablet [place] ([facility]) quetiapine 50 MG Oral Tablet [place] ([facility]) Nicotine 4 MG Chewing Gum AT [facility] ([facility]) Narcan 4 mg/actuation nasal spray SPRAY 2 SPRAYS 4MG IN EACH NOSTRIL DIRECTED FOR SUSPECTED OPOID OVERDOSE AND CALL 911 [facility] ([facility]) methylprednisolone 4 mg tablets in a dose pack USE DIRECTED [facility] ([facility]) Levofloxacin 250 MG Oral Tablet [facility] ([facility]) Ibuprofen 800 MG Oral Tablet [facility] ([facility]) Hydroxyzine Hydrochloride 25 MG Oral Tablet [facility] ([facility]) Doxycycline Monohydrate 100 MG Oral Capsule [facility] ([facility]) Clotrimazole 10 MG/ML Topical Cream [facility] ([facility]) Cholecalciferol 1000 UNT Oral Tablet [facility] ([facility]) Cephalexin 500 MG Oral Capsule [facility] ([facility]) buspirone hydrochloride 5 MG Oral Tablet [facility] ([facility]) Buprenorphine 8 MG / Naloxone 2 MG Oral Strip [facility] ([facility]) Buprenorphine 4 MG / Naloxone 1 MG Oral Strip [facility] ([facility]) Buprenorphine 2 MG / Naloxone 0.5 MG Oral Strip [facility] ([facility]) Tab-A-Bipin 400 mcg tablet TAKE ONE TABLET BY MOUTH EVERY DAY [facility] ([facility]) quetiapine 50 MG Oral Tablet [facility] ([facility]) Nicotine 4 MG Chewing Gum AT [facility] ([facility]) Narcan 4 mg/actuation nasal spray SPRAY 2 SPRAYS 4MG IN EACH NOSTRIL DIRECTED FOR SUSPECTED OPOID OVERDOSE AND CALL 911 [facility] ([facility]) methylprednisolone 4 mg tablets in a dose pack USE DIRECTED [facility] ([facility]) Ibuprofen 800 MG Oral Tablet [facility] ([facility]) Hydroxyzine Hydrochloride 25 MG Oral Tablet [facility] ([facility]) Doxycycline Monohydrate 100 MG Oral Capsule [facility] ([facility]) Clotrimazole 10 MG/ML Topical Cream [facility] ([facility]) Cholecalciferol 1000 UNT Oral Tablet [facility] ([facility]) Cephalexin 500 MG Oral Capsule [facility] ([facility]) buspirone hydrochloride 5 MG Oral Tablet [facility] ([facility]) Buprenorphine 8 MG / Naloxone 2 MG Oral Strip [facility] ([facility]) Buprenorphine 4 MG / Naloxone 1 MG Oral Strip [facility] ([facility]) Buprenorphine 2 MG / Naloxone 0.5 MG Oral Strip [facility] ([facility])
--- NOTE | 2021-09-24 11:17 | ECGEPIP ---
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
== END 2021-09-23 22:00 | disposition home or self-care (01) ==
LOC: M ED 16:30
DX: F11.10 Opioid abuse, uncomplicated (principal); R00.0 Tachycardia, unspecified; I45.19 Other right bundle-branch block; I51.7 Cardiomegaly; Z88.0 Allergy status to penicillin
CPT/HCPCS: 36415; 80048; 80076; 80143; 82077; 82550; 84443; 85025; 93005; 93041; 94760; 96361; 96374; 99291; J2060

== ENCOUNTER 2021-09-26 05:03 | Emergency (ER) | payer OTHER ==
[~2021-09-26] VITALS: Ht 182.9 cm; Wt 61.9 kg
[~2021-09-26 05:03] MED LIST changes: +ALBU8.5H
[2021-09-26 05:07] VITALS: BP 99/52
--- OUTSIDE RECORDS SUMMARY | 2021-09-26 05:08 | CCD ---
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 Normal (applies to non-numer ic results) [facility] ID Date Data Source [id number] 11/01/2020 10:01:00 AM EST [facility] Name Value Range Interpretation Code Description Data Hedy rce(s) Supporting Document(s) Sodium 139 mmol/L 137-145 Normal (applies to non-numeric resul ts) [facility] Potassium 3.5-5.1 Normal (applies to non-numeric resul ts) [facility] Chloride 106 mmol/L 98-112 Normal (applies to non-numeric resul ts) [facility] Carbon Dioxide CO2 22.0-33.0 Normal (applies to non-numer ic results) [facility] Anion Gap 4.0-11.0 Normal (applies to non-numeric resul ts) [facility] BUN 17 mg/dL 9-20 Normal (applies to non-numeric resul ts) [facility] Creatinine 0.80-1.50 Normal (applies to non-numeric resul ts) [facility] GFR 88 mL/min >60 Normal (applies to non-numeric resul ts) [facility] Result based on MDRD formula. Glucose Level 110 mg/dL 74-99 Above high normal [facility] The reference range is only applicable w hen fasting. Calcium-Uncorrected 8.4-10.2 Normal (applies to non-nume iza results) [facility] Corrected Calcium 8.4-10.2 Normal (applies to non-numeri c results) [facility] Bilirubin,Total 0.2-1.3 Normal (applies to non-numeric results) [facility] Bilirubin,Direct 0.0-0.3 Normal (applies to non-numeric results) [facility] SGOT(AST) 79 U/L 17-59 Above high normal [facility] SGPT(ALT) 51 U/L 21-72 Normal (applies to non-numeric resul ts) [facility] Alkaline Phosphatase 71 U/L 38-126 Normal (applies to non-num zeb results) [facility] can increase Alkaline Phosp le vels up to 2 times the normal adult value. Normal values for children and adolescents are 2 to 3 times the normal adult value. CPK 695 U/L 39-308 Above high normal [facility] Total Protein 6.3-8.2 Normal (applies to non-numeric re sults) [facility] Albumin 3.5-5.0 Normal (applies to non-numeric resul ts) [facility] Thyroid Stimulate Hormone TSH 0.358-3.740 No rmal (applies to non-numeric results) [facility] ID Date Data Source [id number] 11/01/2020 10:01:00 AM [facility] Name Value Range Interpretation Code Description Data Hedy rce(s) Supporting Document(s) Magnesium 1.80-2.40 Normal (applies to non-numeric resul ts) [facility] ID Date Data Source [id number] 11/01/2020 10:01:00 AM [facility] Name Value Range Interpretation Code Description Data Hedy rce(s) Supporting Document(s) C-Reactive Protein,Wide Range <3.00 Above high normal [facility] ID Date Data Source [id number] 11/01/2020 09:31:00 AM [facility] Name Value Range Interpretation Code Description Data Hedy rce(s) Supporting Document(s) White Blood Count 4.8-10.8 Normal (applies to non-numeri c results) [facility] Red Blood Count 4.35-6.08 Normal (applies to non-numeric results) [facility] Hemoglobin 13.0-17.5 Normal (applies to non-numeric resul ts) [facility] Hematocrit 37.7-51.0 Normal (applies to non-numeric resul ts) [facility] Mean Corpuscular Volume 80-94 Normal (applies to non- numeric results) [facility] Mean Corpuscular Hemoglobin 27.0-33.0 Normal (appli es to non-numeric results) [facility] Mean Corpuscular HGB Conc 32.0-36.0 Normal (applies to no n-numeric results) [facility] Red Cell Distribution Width 11.5-14.5 Normal (appli es to non-numeric results) [facility] Platelet Count 207 X10 3/uL 130-450 Normal (applies to non-numeric results) [facility] Mean Platelet Volume 9.6-13.1 Normal (applies to non-num zeb results) [facility] Imm Grans% (AUTO) 0 % 0-2 Normal (applies to non-numeri c results) [facility] Neutrophils % (AUTO) 52 % 40-75 Normal (applies to non-num zeb results) [facility] Lymphocytes % (AUTO) 29 % 21-46 Normal (applies to non-num zeb results) [facility] Monocytes % (AUTO) 11 % 5-12 Normal (applies to non-numer ic results) [facility] Eosinophils % (AUTO) 7 % 1-5 Above high normal [facility] Basophils % (AUTO) 1 % 0-1 Normal (applies to non-numer ic results) [facility] Imm Grans# (AUTO) 0.0-0.5 Normal (applies to non-numeri c results) [facility] Neutrophils # (AUTO) 1.5-8.1 Normal (applies to non-num zeb results) [facility] Lymphocytes # (AUTO) 1.0-3.1 Normal (applies to non-num zeb results) [facility] Monocytes # (AUTO) 0.2-1.3 Normal (applies to non-numer ic results) [facility] Eosinophils# (AUTO) 0.0-0.5 Normal (applies to non-nume iza results) [facility] Basophils # (AUTO) 0.0-0.1 Normal (applies to non-numer ic results) [facility] ID Date Data Source [id number] 11/07/2020 02:28:00 PM [facility] Name Value Range Interpretation Code Description Data Hedy rce(s) Supporting Document(s) Cannabinoids Confirm,Ur result . Very abnor mal (applies to non-numeric units [facility] Carboxy THC GC/MS Conf 92 ng/mL Cutoff=10 01 Performed at: [facility] [id number] Electrotype Caster: Dari Daniel MD, Phone: [phone] ID Date Data Source [id number] 10/31/2020 09:06:00 PM EST [facility] Name Value Range Interpretation Code Description Data Hedy rce(s) Supporting Document(s) Opiate Screen,Urine Negative Normal (applies to non-nume iza results) [facility] Amphetamine Screen,Urine Negative [place] [facility] Benzodiazepines Scrn,Ur result Negative N ormal (applies to non-numeric results) [facility] Cocaine Screen,Urine Negative Normal (applies to non-num zeb results) [facility] Methadone Screen,Urine Negative Normal (applies to non-n umeric results) [facility] Cannabinoid Screen, Ur Negative [place] [facility] Therapeutic Drug Ranges for Emergency an d Rehabilitation Threshold Levels (ng/mL) Cocaine 300 Opiates 300 Cannabinoids 50 Barbiturates 200 Benzodiazepine 200 Methadone 300 Amphetamines 1000 All positive findings are presumptive and unconfirmed. Confirmation of positive results are performed only at request of provider. Unconfirmed results must not be used for non-medical purposes (i.e. pre-employment and legal purposes) ID Date Data Source [id number] 10/31/2020 06:32:00 PM EST [facility] Name Value Range Interpretation Code Description Data Hedy rce(s) Supporting Document(s) Respiratory specimen severe acute respir atory syndrome coronavirus 2 (SARS-CoV-2) RNA [facility] This lab was ordered by [facility] marissa and reported by [facility]. ID Date Data Source [id number] 10/31/2020 06:18:00 PM [facility] Name Value Range Interpretation Code Description Data Hedy rce(s) Supporting Document(s) SARS-CoV-2 RNA Negative Normal (applies to non-numeric r esults) [facility] Negative results should be treated [...] Certificate of Accreditation. Factsheets for healthcare providers: https://www.fda.gov/media/764423/download Factsheets for patients: https://www.fda.gov/media/753684/download The ID NOW Instrument is a rapid molecular in vitro diagnostic test utilizing an isothermal nucleic acid amplification technology intended for the qualitative detection of nucleic acid from the SARS-CoV-2 viral RNA. THIS IS A STATE REPORTABLE COMMUNICABLE DISEASE. Manual entry verified by Tessie Goodwin 10/31/201816 ID Date Data Source [id number] 10/31/2020 11:55:00 PM EST [facility] Name Value Range Interpretation Code Description Data Hedy rce(s) Supporting Document(s) Color,Urine Yellow Normal (applies to non-numeric resu lts) [facility] Clarity,Urine Clear Normal (applies to non-numeric re sults) [facility] Specific [place],Urine 1.001-1.030 Normal (applies to non- numeric results) [facility] PH,Urine 5.0-8.0 Normal (applies to non-numeric resul ts) [facility] Protein,Urine Negative Normal (applies to non-numeric re sults) [facility] Glucose,Urine (UA) Negative Normal (applies to non-numer ic results) [facility] Ketones,Urine Negative [facility] ospital Blood,Urine Negative Normal (applies to non-numeric resu lts) [facility] Bilirubin,Urine Negative Normal (applies to non-numeric results) [facility] Urobilinogen,Urine Norm 0.2-1 Normal (applies to non-numer ic results) [facility] Leukocyte Esterase,Urine Negative Normal (applies to non -numeric results) [facility] Nitrite,Urine Negative Normal (applies to non-numeric re sults) [facility] Procedure Social History No Information [...] 36.4 ARA NETSMART ([facility]) Heart rate 74.0 /MIN 74.0 /MIN [facility]SMART ([facility]) Body temperature 98.7 [DEGF] 98.7 [DEGF] NETSMA RT ([facility]) Diastolic blood pressure 71.0 MM[HG] 71.0 MM[HG ] NETSMART ([facility]) Body height 182.9 cm 182.9 cm [facility] ([facility]) Body temperature 37.1 ARA 37.1 ARA NETSMART ([facility]) Body weight 63.6 KG 63.6 KG [facility]SMART ([facility]) Body mass index (BMI) [Ratio] 19.0 19.0 NETSMART ([facility]) Systolic blood pressure 131.0 MM[HG] 131.0 MM[H G] NETSMART ([facility]) Respiratory rate 16.0 /MIN 16.0 /MIN NETSMART ([facility]) Oxygen saturation in Arterial blood by Pulse oximetry 100.0 % 100.0 % NETSMART ([facility]) [place] body weight 178 [lb_av] 178 [lb_av] MEDEN T ([facility] ) Respiratory rate 12 /min 12 /min MEDENT ( [facility] ) Body height 72 [in_i] 72 [in_i] MEDENT ([facility] ) 6'0" Body weight 145.00 [lb_av] 145.00 [lb_av] BEBETO T ([facility]) Body mass index (BMI) [Ratio] 19.7 kg/m2 19.7 k g/m2 MEDENT ([facility]) Body height 72 [in_i] 72 [in_i] ROGER ([facility]) Diastolic blood pressure 62 mm[Hg] 62 mm[Hg] ROGER ([facility]) Body height 72 [in_i] 72 [in_i] ROGER ([facility]) Body mass index (BMI) [Ratio] 19.4 kg/m2 19.4 k g/m2 ROGER ([facility]) Systolic blood pressure 98 mm[Hg] 98 mm[Hg] A YAREDA ([facility]) Body weight 2290 [oz_av] 2290 [oz_av] ROGER ([facility]) Diastolic blood pressure 62 mm[Hg] 62 mm[Hg] ROGER ([facility]) Body height 72 [in_i] 72 [in_i] ROGER ([facility]) Body mass index (BMI) [Ratio] 19.4 kg/m2 19.4 k g/m2 ROGER ([facility]) Systolic blood pressure 98 mm[Hg] 98 mm[Hg] A THENA ([facility]) Body weight 2290 [oz_av] 2290 [oz_av] ROGER ([facility]) Body temperature 36.4 ARA 36.4 ARA NETSMART ([facility]) Heart rate 72.0 /MIN 72.0 /MIN NETSMART ([facility]) Respiratory rate 14.0 /MIN 14.0 [...] /MIN 53.0 /MIN NETSMART ([facility]) Systolic blood pressure 103.0 MM[HG] 103.0 MM[H G] NETSMART ([facility]) Body temperature 98.7 [DEGF] 98.7 [DEGF] NETSMA RT ([facility]) Body temperature 37.1 ARA 37.1 [...] MM[HG] 103.0 MM[H G] NETSMART ([facility]) Respiratory rate 17.0 /MIN [...] 16.0 /MIN NETSMART ([facility]) Body temperature 97.8 [DEGF] 97.8 [DEGF] NETSMA RT ([facility]) Systolic blood pressure 107.0 MM[HG] 107.0 MM[H G] NETSMART ([facility]) Diastolic blood pressure 62.0 MM[HG] 62.0 MM[HG ] NETSMART ([facility]) Oxygen saturation in Arterial blood by Pulse oximetry 99.0 % 99.0 % NETSMART ([facility]) ID Date Data Source [id number] 11/16/2020 09:35:00 AM EST [facility] Name Value Range Interpretation Code Description Data Source(s) Weight Measurement Method 1 1 [facility] Weight (Calculated Kilograms) 59.42 59.42 [facility] Weight 7016 2096 [facility] Temperature Source 7 7 [facility] Temperature 97.6 97.6 [facility] Respiratory Effort 1 1 [facility] Respiratory Rate 16 16 [facility] Pulse Assessment Method 4 4 [facility] Pulse Rate 66 66 [facility] Height (Calculated Centimeters) 180.34 180. 34 [facility] Height 71 71 [facility] Blood Pressure 130/55 130/55 [facility] Body Mass Index (BMI) 18.2 18.2 [facility] Weight Measurement Method 1 1 [facility] Weight (Calculated Kilograms) 59.42 59.42 [facility] Weight 2095 2095 [facility] Temperature Source 7 7 [facility] Temperature 97.6 97.6 [facility] Respiratory Effort 1 1 [facility] Respiratory Rate 16 16 [facility] Pulse Assessment Method 4 4 [facility] Pulse Rate 66 66 [facility] Height (Calculated Centimeters) 180.34 180. 34 [facility] Height 71 71 [facility] Blood Pressure 130/55 130/55 [facility] Body Mass Index (BMI) 18.2 18.2 [facility] Weight Measurement Method 1 1 [facility] Weight (Calculated Kilograms) 59.42 59.42 [facility] Weight 2095 2095 [facility] Temperature Source 7 7 [facility] Temperature 97.6 97.6 [facility] Respiratory Effort 1 1 [facility] Respiratory Rate 16 16 [facility] Pulse Assessment Method 4 4 [facility] Pulse Rate 66 66 [facility] Height (Calculated Centimeters) 180.34 180. 34 [facility] Height 71 71 [facility] Blood Pressure 130/55 130/55 [facility] Body Mass Index (BMI) 18.2 18.2 [facility] Weight Measurement Method 1 1 [facility] Weight (Calculated Kilograms) 59.42 59.42 [facility] Weight 2095 2095 [facility] Temperature Source 7 7 [facility] Temperature 96.7 96.7 [facility] Respiratory Effort 1 1 [facility] Respiratory Rate 16 16 [facility] Pulse Assessment Method 4 4 [facility] Pulse Rate 49 49 [facility] Height (Calculated Centimeters) 180.34 180. 34 [facility] Height 71 71 [facility] Blood Pressure 96/56 96/56 [facility] Body Mass Index (BMI) 18.2 18.2 [facility] Weight Measurement Method 1 1 [facility] Weight (Calculated Kilograms) 59.42 59.42 [facility] Weight 2096 2096 [facility] Temperature Source 7 7 [facility] Temperature 96.7 96.7 [facility] Respiratory Effort 1 1 [facility] Respiratory Rate 15 15 [facility] Pulse Assessment Method 3 3 [facility] Pulse Rate 72 72 [facility] Height (Calculated Centimeters) 180.34 180. 34 [facility] Height 71 71 [facility] Blood Pressure 110/68 110/68 [facility] Body Mass Index (BMI) 18.2 18.2 [facility] Weight Measurement Method 1 1 [facility] Weight (Calculated Kilograms) 59.42 59.42 [facility] Weight 2096 2096 [facility] Temperature Source 7 7 [facility] Temperature 98.0 98.0 [facility] Respiratory Effort 1 1 [facility] Respiratory Rate 16 16 [facility] Pulse Assessment Method 4 4 [facility] Pulse Rate 76 76 [facility] Height (Calculated Centimeters) 180.34 180. 34 [facility] Height 71 71 [facility] Blood Pressure 128/60 128/60 [facility] Body Mass Index (BMI) 18.2 18.2 [facility] Patient Treatment Plan of Care Planned Activity Planned Date Details Description Data Source (s) Tab-A-Bipin 400 mcg tablet TAKE ONE TABLET BY MOUTH EVERY DAY ROEGR ([facility]) Sulfamethoxazole 800 MG / Trimethoprim 160 MG Oral Tablet [facility] ([facility]) quetiapine 50 MG Oral Tablet [facility] ([facility]) Nicotine 4 MG Chewing Gum AT [facility] ([facility]) Narcan 4 mg/actuation nasal spray SPRAY 2 SPRAYS 4MG IN EACH NOSTRIL DIRECTED FOR SUSPECTED OPOID OVERDOSE AND CALL 911 ROGER ([facility]) methylprednisolone 4 mg tablets in a dose pack USE DIRECTED ROGER ([facility]) Levofloxacin 250 MG Oral Tablet ROGER ([facility]) Ibuprofen 800 MG Oral Tablet ROGER ([facility]) Hydroxyzine Hydrochloride 25 MG Oral Tablet ROGER ([facility]) Doxycycline Monohydrate 100 MG Oral Capsule ROGER ([facility]) Clotrimazole 10 MG/ML Topical Cream ROGER ([facility]) Cholecalciferol 1000 UNT Oral Tablet ROGER ([facility]) Cephalexin 500 MG Oral Capsule ROGER ([facility]) buspirone hydrochloride 5 MG Oral Tablet ROGER ([facility]) Buprenorphine 8 MG / Naloxone 2 MG Oral Strip ROGER ([facility]) Buprenorphine 4 MG / Naloxone 1 MG Oral Strip ROGER ([facility]) Buprenorphine 2 MG / Naloxone 0.5 MG Oral Strip ROGER ([facility]) Tab-A-Bipin 400 mcg tablet TAKE ONE TABLET BY MOUTH EVERY DAY ROGER ([facility]) quetiapine 50 MG Oral Tablet ROGER ([facility]) Nicotine 4 MG Chewing Gum AT [facility]) Narcan 4 mg/actuation nasal spray SPRAY 2 SPRAYS 4MG IN EACH NOSTRIL DIRECTED FOR SUSPECTED OPOID OVERDOSE AND CALL 911 ROGER ([facility]) methylprednisolone 4 mg tablets in a dose pack USE DIRECTED ROGER ([facility]) Ibuprofen 800 MG Oral Tablet ROGER ([facility]) Hydroxyzine Hydrochloride 25 MG Oral Tablet ROGER ([facility]) Doxycycline Monohydrate 100 MG Oral Capsule ROGER ([facility]) Clotrimazole 10 MG/ML Topical Cream ROGER ([facility]) Cholecalciferol 1000 UNT Oral Tablet ROGER ([facility]) Cephalexin 500 MG Oral Capsule ROGER ([facility]) buspirone hydrochloride 5 MG Oral Tablet ROGER ([facility]) Buprenorphine 8 MG / Naloxone 2 MG Oral Strip ROGER ([facility]) Buprenorphine 4 MG / Naloxone 1 MG Oral Strip ROGER ([facility]) Buprenorphine 2 MG / Naloxone 0.5 MG Oral Strip ROGER ([facility])
[2021-09-26 06:16] LABS: VENOUS BASE EXCESS 1.2 (-2.0-2.0); VENOUS HCO3 24.7 MEQ/L (23.0-27.0); VENOUS O2 SATURATION 97.4 % (60.0-80.0); VENOUS PARTIAL PRESSURE CO2 35.9 mmHg (38.0-50.0); VENOUS PARTIAL PRESSURE O2 96.6 mmHg (30.0-50.0); VENOUS PH 7.456 UNITS (7.330-7.430); VENOUS STANDARD HCO3 25.5 MEQ/L; VENOUS TOTAL CO2 25.8 MEQ/L (24.0-28.0)
[2021-09-26 06:26] LABS: BASO % 0.5 % (0.0-1.0); EOS % 0.3 % (0.0-3.0); HEMATOCRIT 38.5 % (42.0-52.0); LYMPH # 0.7 10^3/uL (1.5-5.0); LYMPH % 12.6 % (24.0-44.0); MEAN CORPUSCULAR HEMOGLOBIN 30.9 pg (27.0-33.0); MEAN CORPUSCULAR HGB CONC 33.8 g/dl (32.0-36.5); MEAN CORPUSCULAR VOLUME 91.4 fl (80.0-96.0); MONO # 0.5 10^3/uL (0.0-0.8); MONO % 9.4 % (2.0-8.0); NEUTROPHILS # 4.4 10^3/uL (1.5-8.5); NEUTROPHILS % 76.7 % (36.0-66.0); PLATELET COUNT, AUTOMATED 309 10^3/uL (150-450); RED BLOOD COUNT 4.21 10^6/uL (4.30-6.10); WHITE BLOOD COUNT 5.7 10^3/uL (4.0-10.0)
[2021-09-26 06:55] LABS: OSMOLALITY SERUM 291 MOSM/KG (275-295)
[2021-09-26 07:00] LABS: ACETAMINOPHEN LEVEL < 2.0 UG/ML (10.0-30.0); ALBUMIN 3.5 GM/DL (3.2-5.2); ALT/SGPT 75 U/L (12-78); BILIRUBIN,DIRECT 0.1 MG/DL (0.0-0.2); BILIRUBIN,TOTAL 0.3 MG/DL (0.2-1.0); BLOOD UREA NITROGEN 9 MG/DL (7-18); CALCIUM LEVEL 8.8 MG/DL (8.5-10.1); CARBON DIOXIDE LEVEL 26 MEQ/L (21-32); CHLORIDE LEVEL 109 MEQ/L (98-107); ETHYL ALCOHOL (ETHANOL) < 0.003 % (0.000-0.010); GLOMERULAR FILTRATION RATE > 60.0 (>60); GLUCOSE, FASTING 62 MG/DL (70-100); POTASSIUM SERUM 4.1 MEQ/L (3.5-5.1); SALICYLATE LEVEL < 1.7 MG/DL (5.0-30.0); SODIUM LEVEL 143 MEQ/L (136-145)
--- OUTSIDE RECORDS SUMMARY | 2021-09-26 07:17 | CCD ---
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 [facility] Anion Gap 4.0-11.0 Normal (applies to non-numeric resul ts) [facility] BUN 17 mg/dL 9-20 Normal (applies to non-numeric resul ts) [facility] Creatinine 0.80-1.50 Normal (applies to non-numeric resul ts) [facility] GFR 88 mL/min >60 Normal (applies to non-numeric resul ts) [facility] Result based on MDRD formula. Glucose Level 110 mg/dL 74-99 Above high normal [facility] The reference range is only applicable w hen fasting. Calcium-Uncorrected 8.4-10.2 Normal (applies to non-nume iza results) [facility] Corrected Calcium 8.4-10.2 Normal (applies to non-numeri c results) [facility] Bilirubin,Total 0.2-1.3 Normal (applies to non-numeric results) [facility] Bilirubin,Direct 0.0-0.3 Normal (applies to non-numeric results) [facility] SGOT(AST) 79 U/L 17-59 Above high normal [facility] SGPT(ALT) 51 U/L 21-72 Normal (applies to non-numeric resul ts) [facility] Alkaline Phosphatase 71 U/L 38-126 Normal (applies to non-num zeb results) [facility] can increase Alkaline Phosp le vels up to 2 times the normal adult value. Normal values for children and adolescents are 2 to 3 times the normal adult value. CPK 695 U/L 39-308 Above high normal [facility] Total Protein 6.3-8.2 Normal (applies to non-numeric re sults) [facility] Albumin 3.5-5.0 Normal (applies to non-numeric resul ts) [facility] Thyroid Stimulate Hormone TSH 0.358-3.740 No rmal (applies to non-numeric results) [facility] ID Date Data Source [id number] 11/01/2020 10:01:00 AM [facility] Name Value Range Interpretation Code Description Data Hedy rce(s) Supporting Document(s) Magnesium 1.80-2.40 Normal (applies to non-numeric resul ts) [facility] ID Date Data Source [id number] 11/01/2020 10:01:00 AM [facility] Name Value Range Interpretation Code Description Data Hedy rce(s) Supporting Document(s) C-Reactive Protein,Wide Range <3.00 Above high normal [facility] ID Date Data Source [id number] 11/01/2020 09:31:00 AM [facility] Name Value Range Interpretation Code Description Data Hedy rce(s) Supporting Document(s) White Blood Count 4.8-10.8 Normal (applies to non-numeri c results) [facility] Red Blood Count 4.35-6.08 Normal (applies to non-numeric results) [facility] Hemoglobin 13.0-17.5 Normal (applies to non-numeric resul ts) [facility] Hematocrit 37.7-51.0 Normal (applies to non-numeric resul ts) [facility] Mean Corpuscular Volume 80-94 Normal (applies to non- numeric results) [facility] Mean Corpuscular Hemoglobin 27.0-33.0 Normal (appli es to non-numeric results) [facility] Mean Corpuscular HGB Conc 32.0-36.0 Normal (applies to no n-numeric results) [facility] Red Cell Distribution Width 11.5-14.5 Normal (appli es to non-numeric results) [facility] Platelet Count 207 X10 3/uL 130-450 Normal (applies to non-numeric results) [facility] Mean Platelet Volume 9.6-13.1 Normal (applies to non-num zeb results) [facility] Imm Grans% (AUTO) 0 % 0-2 Normal (applies to non-numeri c results) [facility] Neutrophils % (AUTO) 52 % 40-75 Normal (applies to non-num zeb results) [facility] Lymphocytes % (AUTO) 29 % 21-46 Normal (applies to non-num ezb results) [facility] Monocytes % (AUTO) 11 % 5-12 Normal (applies to non-numer ic results) [facility] Eosinophils % (AUTO) 7 % 1-5 Above high normal [facility] Basophils % (AUTO) 1 % 0-1 Normal (applies to non-numer ic results) [facility] Imm Grans# (AUTO) 0.0-0.5 Normal (applies to non-numeri c results) [facility] Neutrophils # (AUTO) 1.5-8.1 Normal (applies to non-num zeb results) [facility] Lymphocytes # (AUTO) 1.0-3.1 Normal (applies to non-num zeb results) [facility] Monocytes # (AUTO) 0.2-1.3 Normal (applies to non-numer ic results) [facility] Eosinophils# (AUTO) 0.0-0.5 Normal (applies to non-nume iza results) [facility] Basophils # (AUTO) 0.0-0.1 Normal (applies to non-numer ic results) [facility] ID Date Data Source [id number] 11/07/2020 02:28:00 PM [facility] Name Value Range Interpretation Code Description Data Hedy rce(s) Supporting Document(s) Cannabinoids Confirm,Ur result . Very abnor mal (applies to non-numeric units [facility] Carboxy THC GC/MS Conf 92 ng/mL Cutoff=10 01 Performed at: [facility] [id number] Professor Of Forest Planning: Dari Daniel MD, Phone: [phone] ID Date Data Source [id number] 10/31/2020 09:06:00 PM EST [facility] Name Value Range Interpretation Code Description Data Hedy rce(s) Supporting Document(s) Opiate Screen,Urine Negative Normal (applies to non-nume iza results) [facility] Amphetamine Screen,Urine Negative [place] [facility] Benzodiazepines Scrn,Ur result Negative N ormal (applies to non-numeric results) [facility] Cocaine Screen,Urine Negative Normal (applies to non-num zeb results) [facility] Methadone Screen,Urine Negative Normal (applies to non-n umeric results) [facility] Cannabinoid Screen, Ur Negative [place] [facility] Therapeutic Drug Ranges for Emergency an d Rehabilitation Threshold Levels (ng/mL) Cocaine 300 Opiates 300 Cannabinoids 50 Barbiturates 200 Benzodiazepine 200 Methadone 300 Amphetamines 1000 All positive findings are presumptive and unconfirmed. Confirmation of positive results are performed only at request of provider. Unconfirmed results must not be used for non-medical purposes (i.e. pre-employment and legal purposes) ID Date Data Source [id number] 10/31/2020 06:32:00 PM EST [facility] Name Value Range Interpretation Code Description Data Hedy rce(s) Supporting Document(s) Respiratory specimen severe acute respir atory syndrome coronavirus 2 (SARS-CoV-2) RNA [facility] This lab was ordered by [facility] marissa and reported by [facility]. ID Date Data Source [id number] 10/31/2020 06:18:00 PM [facility] Name Value Range Interpretation Code Description Data Hedy rce(s) Supporting Document(s) SARS-CoV-2 RNA Negative Normal (applies to non-numeric r esults) [facility] Negative results should be treated as [...] Certificate of Accreditation. Factsheets for healthcare providers: https://www.fda.gov/media/520702/download Factsheets for patients: https://www.fda.gov/media/884520/download The ID NOW Instrument is a rapid molecular in vitro diagnostic test utilizing an isothermal nucleic acid amplification technology intended for the qualitative detection of nucleic acid from the SARS-CoV-2 viral RNA. THIS IS A STATE REPORTABLE COMMUNICABLE DISEASE. Manual entry verified by Tessie Goodwin 10/31/201816 ID Date Data Source [id number] 10/31/2020 11:55:00 PM EST [facility] Name Value Range Interpretation Code Description Data Hedy rce(s) Supporting Document(s) Color,Urine Yellow Normal (applies to non-numeric resu lts) [facility] Clarity,Urine Clear Normal (applies to non-numeric re sults) [facility] Specific [place],Urine 1.001-1.030 Normal (applies to non- numeric results) [facility] PH,Urine 5.0-8.0 Normal (applies to non-numeric resul ts) [facility] Protein,Urine Negative Normal (applies to non-numeric re sults) [facility] Glucose,Urine (UA) Negative Normal (applies to non-numer ic results) [facility] Ketones,Urine Negative [facility] ospital Blood,Urine Negative Normal (applies to non-numeric resu lts) [facility] Bilirubin,Urine Negative Normal (applies to non-numeric results) [facility] Urobilinogen,Urine Norm 0.2-1 Normal (applies to non-numer ic results) [facility] Leukocyte Esterase,Urine Negative Normal (applies to non -numeric results) [facility] Nitrite,Urine Negative Normal (applies to non-numeric re sults) [facility] Procedure Social History No Information Vital [...] Body temperature 36.5 ARA 36.5 ARA [facility] ([facility]) Heart rate 64.0 /MIN 64.0 /MIN [...] MM[HG] 131.0 MM[H G] [facility]SM[facility] ([facility]) Diastolic blood pressure 71.0 MM[HG] 71.0 MM[HG ] [facility] ([facility]) Body height 182.9 cm 182.9 cm [facility]) Body weight 63.6 KG 63.6 KG [facility] ([facility]) Body mass index (BMI) [Ratio] 19.0 19.0 [facility] ([facility]) Body temperature 98.7 [DEGF] [...] weight 145.00 [lb_av] 145.00 [lb_av] MEDEN T ([facility], ) Body mass index (BMI) [Ratio] 19.7 kg/m2 19.7 k g/m2 MEDENT ([facility], ) [place] body weight 178 [lb_av] 178 [lb_av] BEBETO T ([facility], ) Body height 72 [in_i] 72 [in_i] [facility] ([facility] Diastolic blood pressure 62 mm[Hg] 62 mm[Hg] [facility] ([facility]) Body height 72 [in_i] 72 [in_i] [facility] ([facility]) Body mass index (BMI) [Ratio] 19.4 kg/m2 19.4 k g/m2 [facility] ([facility]) Systolic blood pressure 98 mm[Hg] 98 mm[Hg] [facility] Body weight 2290 [oz_av] 2290 [oz_av] ROGER ([facility]) Diastolic blood pressure 62 mm[Hg] 62 mm[Hg] [facility] ([facility]) Body height 72 [in_i] 72 [in_i] [facility] ([facility]) Body mass index (BMI) [Ratio] 19.4 kg/m2 19.4 k g/m2 [facility] ([facility]) Systolic blood pressure 98 mm[Hg] 98 mm[Hg] A THENA ([facility]) Body weight 2290 [oz_av] 2290 [oz_av] ROGER ([facility]) Heart rate 72.0 /MIN 72.0 /MIN [facility]SM[facility] ([facility]) Body temperature 36.4 ARA 36.4 ARA [facility]SM[facility] ([facility]) Respiratory rate 14.0 /MIN 14.0 /MIN [...] 36.8 ARA 36.8 ARA [facility]SM[facility] ([facility]) Systolic blood pressure 119.0 MM[HG] 119.0 MM[H G] [facility]SM[facility] ([facility]) Respiratory rate 16.0 /MIN 16.0 /MIN [facility] ([facility]) Diastolic blood pressure 68.0 [...] [facility]SM[facility] ([facility]) ID Date Data Source [id number] 11/16/2020 09:35:00 AM EST [facility] Name Value Range Interpretation Code Description Data Source(s) Weight Measurement Method 1 1 [facility] Weight (Calculated Kilograms) 59.42 59.42 [facility] Weight 6766 2096 [facility] Temperature Source 7 7 [facility] Temperature 97.6 97.6 [facility] Respiratory Effort 1 1 [facility] Respiratory Rate 16 16 [facility] Pulse Assessment Method 4 4 [facility] Pulse Rate 66 66 [facility] Height (Calculated Centimeters) 180.34 180. 34 [facility] Height 71 71 [facility] Blood Pressure 130/55 130/55 [facility] Body Mass Index (BMI) 18.2 18.2 [facility] Weight Measurement Method 1 1 [facility] Weight (Calculated Kilograms) 59.42 59.42 [facility] Weight 2095 2095 [facility] Temperature Source 7 7 [facility] Temperature 97.6 97.6 [facility] Respiratory Effort 1 1 [facility] Respiratory Rate 16 16 [facility] Pulse Assessment Method 4 4 [facility] Pulse Rate 66 66 [facility] Height (Calculated Centimeters) 180.34 180. 34 [facility] Height 71 71 [facility] Blood Pressure 130/55 130/55 [facility] Body Mass Index (BMI) 18.2 18.2 [facility] Weight Measurement Method 1 1 [facility] Weight (Calculated Kilograms) 59.42 59.42 [facility] Weight 2095 2095 [facility] Temperature Source 7 7 [facility] Temperature 97.6 97.6 [facility] Respiratory Effort 1 1 [facility] Respiratory Rate 16 16 [facility] Pulse Assessment Method 4 4 [facility] Pulse Rate 66 66 [facility] Height (Calculated Centimeters) 180.34 180. 34 [facility] Height 71 71 [facility] Blood Pressure 130/55 130/55 [facility] Body Mass Index (BMI) 18.2 18.2 [facility] Weight Measurement Method 1 1 [facility] Weight (Calculated Kilograms) 59.42 59.42 [facility] Weight 2095 2095 [facility] Temperature Source 7 7 [facility] Temperature 96.7 96.7 [facility] Respiratory Effort 1 1 [facility] Respiratory Rate 16 16 [facility] Pulse Assessment Method 4 4 [facility] Pulse Rate 49 49 [facility] Height (Calculated Centimeters) 180.34 180. 34 [facility] Height 71 71 [facility] Blood Pressure 96/56 96/56 [facility] Body Mass Index (BMI) 18.2 18.2 [facility] Weight Measurement Method 1 1 [facility] Weight (Calculated Kilograms) 59.42 59.42 [facility] Weight 2096 2096 [facility] Temperature Source 7 7 [facility] Temperature 96.7 96.7 [facility] Respiratory Effort 1 1 [facility] Respiratory Rate 15 15 [facility] Pulse Assessment Method 3 3 [facility] Pulse Rate 72 72 [facility] Height (Calculated Centimeters) 180.34 180. 34 [facility] Height 71 71 [facility] Blood Pressure 110/68 110/68 [facility] Body Mass Index (BMI) 18.2 18.2 [facility] Weight Measurement Method 1 1 [facility] Weight (Calculated Kilograms) 59.42 59.42 [facility] Weight 2096 2096 [facility] Temperature Source 7 7 [facility] Temperature 98.0 98.0 [facility] Respiratory Effort 1 1 [facility] Respiratory Rate 16 16 [facility] Pulse Assessment Method 4 4 [facility] Pulse Rate 76 76 [facility] Height (Calculated Centimeters) 180.34 180. 34 [facility] Height 71 71 [facility] Blood Pressure 128/60 128/60 [facility] Body Mass Index (BMI) 18.2 18.2 [facility] Patient Treatment Plan of Care Planned Activity Planned Date Details Description Data Source (s) Tab-A-Bipin 400 mcg tablet TAKE ONE TABLET BY MOUTH EVERY DAY [facility] ([facility]) Sulfamethoxazole 800 MG / Trimethoprim 160 MG Oral Tablet [place] ([facility]) quetiapine 50 MG Oral Tablet [place] ([facility]) Nicotine 4 MG Chewing Gum AT [facility] ([facility]) Narcan 4 mg/actuation nasal spray SPRAY 2 SPRAYS 4MG IN EACH NOSTRIL DIRECTED FOR SUSPECTED OPOID OVERDOSE AND CALL 911 [facility] ([facility]) methylprednisolone 4 mg tablets in a dose pack USE DIRECTED [facility] ([facility]) Levofloxacin 250 MG Oral Tablet [facility] ([facility]) Ibuprofen 800 MG Oral Tablet [facility] ([facility]) Hydroxyzine Hydrochloride 25 MG Oral Tablet [facility] ([facility]) Doxycycline Monohydrate 100 MG Oral Capsule [facility] ([facility]) Clotrimazole 10 MG/ML Topical Cream [facility] ([facility]) Cholecalciferol 1000 UNT Oral Tablet [facility] ([facility]) Cephalexin 500 MG Oral Capsule [facility] ([facility]) buspirone hydrochloride 5 MG Oral Tablet [facility] ([facility]) Buprenorphine 8 MG / Naloxone 2 MG Oral Strip [facility] ([facility]) Buprenorphine 4 MG / Naloxone 1 MG Oral Strip [facility] ([facility]) Buprenorphine 2 MG / Naloxone 0.5 MG Oral Strip [facility] ([facility]) Tab-A-Bipin 400 mcg tablet TAKE ONE TABLET BY MOUTH EVERY DAY [facility] ([facility]) quetiapine 50 MG Oral Tablet [facility] ([facility]) Nicotine 4 MG Chewing Gum AT [facility]) Narcan 4 mg/actuation nasal spray SPRAY 2 SPRAYS 4MG IN EACH NOSTRIL DIRECTED FOR SUSPECTED OPOID OVERDOSE AND CALL 911 [facility] ([facility]) methylprednisolone 4 mg tablets in a dose pack USE DIRECTED [facility] ([facility]) Ibuprofen 800 MG Oral Tablet [facility] ([facility]) Hydroxyzine Hydrochloride 25 MG Oral Tablet [facility] ([facility]) Doxycycline Monohydrate 100 MG Oral Capsule [facility] ([facility]) Clotrimazole 10 MG/ML Topical Cream [facility] ([facility]) Cholecalciferol 1000 UNT Oral Tablet [facility] ([facility]) Cephalexin 500 MG Oral Capsule [facility] ([facility]) buspirone hydrochloride 5 MG Oral Tablet [facility] ([facility]) Buprenorphine 8 MG / Naloxone 2 MG Oral Strip [facility] ([facility]) Buprenorphine 4 MG / Naloxone 1 MG Oral Strip [facility] ([facility]) Buprenorphine 2 MG / Naloxone 0.5 MG Oral Strip [facility]OGER ([facility])
--- NOTE | 2021-09-28 07:46 | ECGEPIP ---
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
== END 2021-09-26 07:17 | disposition home or self-care (01) ==
LOC: M ED 05:03
DX: F19.10 Other psychoactive substance abuse, uncomplicated (principal); Z88.0 Allergy status to penicillin

== ENCOUNTER 2021-10-11 13:17 | Emergency (ER) | payer OTHER ==
[~2021-10-11] VITALS: Ht 182.9 cm; Wt 62.6 kg
--- OUTSIDE RECORDS SUMMARY | 2021-10-11 15:47 | CCD ---
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 resul ts) [facility] Chloride 106 mmol/L 98-112 Normal (applies to non-numeric resul ts) [facility] Carbon Dioxide CO2 22.0-33.0 Normal (applies to non-numer ic results) [facility] Anion Gap 4.0-11.0 Normal (applies to non-numeric resul ts) [facility] BUN 17 mg/dL 9-20 Normal (applies to non-numeric resul ts) [facility] Creatinine 0.80-1.50 Normal (applies to non-numeric resul ts) [facility] GFR 88 mL/min >60 Normal (applies to non-numeric resul ts) [facility] Result based on MDRD formula. Glucose Level 110 mg/dL 74-99 Above high normal [facility] The reference range is only applicable w hen fasting. Calcium-Uncorrected 8.4-10.2 Normal (applies to non-nume iza results) [facility] Corrected Calcium 8.4-10.2 Normal (applies to non-numeri c results) [facility] Bilirubin,Total 0.2-1.3 Normal (applies to non-numeric results) [facility] Bilirubin,Direct 0.0-0.3 Normal (applies to non-numeric results) [facility] SGOT(AST) 79 U/L 17-59 Above high normal [facility] SGPT(ALT) 51 U/L 21-72 Normal (applies to non-numeric resul ts) [facility] Alkaline Phosphatase 71 U/L 38-126 Normal (applies to non-num zeb results) [facility] can increase Alkaline Phosp le vels up to 2 times the normal adult value. Normal values for children and adolescents are 2 to 3 times the normal adult value. CPK 695 U/L 39-308 Above high normal [facility] Total Protein 6.3-8.2 Normal (applies to non-numeric re sults) [facility] Albumin 3.5-5.0 Normal (applies to non-numeric resul ts) [facility] Thyroid Stimulate Hormone TSH 0.358-3.740 No rmal (applies to non-numeric results) [facility] ID Date Data Source [id number] 11/01/2020 10:01:00 AM EST [facility] Name Value Range Interpretation Code Description Data Hedy rce(s) Supporting Document(s) Magnesium 1.80-2.40 Normal (applies to non-numeric resul ts) [facility] ID Date Data Source [id number] 11/01/2020 10:01:00 AM [facility] Name Value Range Interpretation Code Description Data Hedy rce(s) Supporting Document(s) C-Reactive Protein,Wide Range <3.00 Above high normal [facility] ID Date Data Source [id number] 11/01/2020 09:31:00 AM EST [facility] Name Value Range Interpretation Code Description Data Hedy rce(s) Supporting Document(s) White Blood Count 4.8-10.8 Normal (applies to non-numeri c results) [facility] Red Blood Count 4.35-6.08 Normal (applies to non-numeric results) [facility] Hemoglobin 13.0-17.5 Normal (applies to non-numeric resul ts) [facility] Hematocrit 37.7-51.0 Normal (applies to non-numeric resul ts) [facility] Mean Corpuscular Volume 80-94 Normal (applies to non- numeric results) [facility] Mean Corpuscular Hemoglobin 27.0-33.0 Normal (appli es to non-numeric results) [facility] Mean Corpuscular HGB Conc 32.0-36.0 Normal (applies to no n-numeric results) [facility] Red Cell Distribution Width 11.5-14.5 Normal (appli es to non-numeric results) [facility] Platelet Count 207 X10 3/uL 130-450 Normal (applies to non-numeric results) [facility] Mean Platelet Volume 9.6-13.1 Normal (applies to non-num zeb results) [facility] Imm Grans% (AUTO) 0 % 0-2 Normal (applies to non-numeri c results) [facility] Neutrophils % (AUTO) 52 % 40-75 Normal (applies to non-num zeb results) [facility] Lymphocytes % (AUTO) 29 % 21-46 Normal (applies to non-num zeb results) [facility] Monocytes % (AUTO) 11 % 5-12 Normal (applies to non-numer ic results) [facility] Eosinophils % (AUTO) 7 % 1-[address] [facility] Basophils % (AUTO) 1 % 0-1 Normal (applies to non-numer ic results) [facility] Imm Grans# (AUTO) 0.0-0.5 Normal (applies to non-numeri c results) [facility] Neutrophils # (AUTO) 1.5-8.1 Normal (applies to non-num zeb results) [facility] Lymphocytes # (AUTO) 1.0-3.1 Normal (applies to non-num zeb results) [facility] Monocytes # (AUTO) 0.2-1.3 Normal (applies to non-numer ic results) [facility] Eosinophils# (AUTO) 0.0-0.5 Normal (applies to non-nume iza results) [facility] Basophils # (AUTO) 0.0-0.1 Normal (applies to non-numer ic results) [facility] ID Date Data Source [id number] 11/07/2020 02:28:00 PM EST [facility] Name Value Range Interpretation Code Description Data Hedy rce(s) Supporting Document(s) Cannabinoids Confirm,Ur result . Very abnor mal (applies to non-numeric units [facility] Carboxy THC GC/MS Conf 92 ng/mL Cutoff=10 01 Performed at: [address] [id number] Underwriting Support Specialist: Dari Daniel MD, Phone: [phone] ID Date Data Source [id number] 10/31/2020 09:06:00 PM EST [facility] Name Value Range Interpretation Code Description Data Hedy rce(s) Supporting Document(s) Opiate Screen,Urine Negative Normal (applies to non-nume iza results) [facility] Amphetamine Screen,Urine Negative [place] [facility] Benzodiazepines Scrn,Ur result Negative N ormal (applies to non-numeric results) [facility] Cocaine Screen,Urine Negative Normal (applies to non-num zeb results) [facility] Methadone Screen,Urine Negative Normal (applies to non-n umeric results) [facility] Cannabinoid Screen, Ur Negative [place] [facility] Therapeutic Drug Ranges for Emergency an d Rehabilitation Threshold Levels (ng/mL) Cocaine 300 Opiates 300 Cannabinoids 50 Barbiturates 200 Benzodiazepine 200 Methadone 300 Amphetamines 1000 All positive findings are presumptive and unconfirmed. Confirmation of positive results are performed only at request of provider. Unconfirmed results must not be used for non-medical purposes (i.e. pre-employment and legal purposes) ID Date Data Source [id number] 10/31/2020 06:32:00 PM EST [facility] Name Value Range Interpretation Code Description Data Hedy rce(s) Supporting Document(s) Respiratory specimen severe acute respir atory syndrome coronavirus 2 (SARS-CoV-2) RNA [facility] This lab was ordered by [facility] marissa and reported by [facility]. ID Date Data Source [id number] 10/31/2020 06:18:00 PM EST [facility] Name Value Range Interpretation Code Description Data Hedy rce(s) Supporting Document(s) SARS-CoV-2 RNA Negative Normal (applies to non-numeric r esults) [facility] Negative results should be treated as [...] Certificate of Accreditation. Factsheets for healthcare providers: https://www.fda.gov/media/870273/download Factsheets for patients: https://www.fda.gov/media/828013/download The ID NOW Instrument is a rapid molecular in vitro diagnostic test utilizing an isothermal nucleic acid amplification technology intended for the qualitative detection of nucleic acid from the SARS-CoV-2 viral RNA. THIS IS A STATE REPORTABLE COMMUNICABLE DISEASE. Manual entry verified by Tessie Goodwin 10/31/20 1817 ID Date Data Source [id number] 10/31/2020 11:55:00 PM EST [facility] Name Value Range Interpretation Code Description Data Hedy rce(s) Supporting Document(s) Color,Urine Yellow Normal (applies to non-numeric resu lts) [facility] Clarity,Urine Clear Normal (applies to non-numeric re sults) [facility] Specific [place],Urine 1.001-1.030 Normal (applies to non- numeric results) [facility] PH,Urine 5.0-8.0 Normal (applies to non-numeric resul ts) [facility] Protein,Urine Negative Normal (applies to non-numeric re sults) [facility] Glucose,Urine (UA) Negative Normal (applies to non-numer ic results) [facility] Ketones,Urine Negative [place] [facility] ospital Blood,Urine Negative Normal (applies to non-numeric resu lts) [facility] Bilirubin,Urine Negative Normal (applies to non-numeric results) [facility] Urobilinogen,Urine Norm 0.2-1 Normal (applies to non-numer ic results) [facility] Leukocyte Esterase,Urine Negative Normal (applies to non -numeric results) [facility] Nitrite,Urine Negative Normal (applies to non-numeric re sults) [facility] Procedure Social History No Information Vital Signs ID Date Data Source [id number] Name Value Range Interpretation Code Description Data Source(s) Systolic blood pressure 104.0 MM[HG] 104.0 MM[H G] NETSMART ([facility]) Diastolic blood pressure 61.0 MM[HG] 61.0 MM[HG ] NETSMART ([facility]) Heart rate 94.0 /MIN 94.0 /MIN [facility]SM[facility] ([facility] Body temperature 97.7 [DEGF] 97.7 [DEGF] NETSMA RT ([facility]) Respiratory rate [...] 71.0 MM[HG ] NETSMART ([facility]) Body temperature 37.1 ARA 37.1 ARA NETSMART ([facility]) Body weight 63.6 KG 63.6 KG [facility] ([facility]) Body mass index (BMI) [Ratio] 19.0 19.0 NETSMART ([facility]) Heart rate 74.0 /MIN 74.0 /MIN NETSMART ([facility]) Systolic blood pressure 131.0 MM[HG] 131.0 MM[H G] NETSMART ([facility]) Body height 182.9 cm 182.9 cm [facility] ([facility]) Respiratory rate 16.0 /MIN 16.0 /MIN NETSMART ([facility]) Oxygen saturation in Arterial blood by Pulse oximetry 100.0 % 100.0 % NETSMART ([facility]) Respiratory rate 12 /min 12 /min MEDENT ( [facility] ) Body height 72 [in_i] 72 [in_i] MEDENT ([facility] ) 6'0" Body weight 145.00 [lb_av] 145.00 [lb_av] MEDEN T ([facility] ) Body mass index (BMI) [Ratio] 19.7 kg/m2 19.7 k g/m2 MEDENT ([facility] ) [place] body weight 178 [lb_av] 178 [lb_av] BEBETO T ([facility] ) Body height 72 [in_i] 72 [in_i] ROGER ([facility]) Diastolic blood pressure 62 mm[Hg] 62 mm[Hg] ROGER ([facility]) Body height 72 [in_i] 72 [in_i] ROGER ([facility]) Body mass index (BMI) [Ratio] 19.4 kg/m2 19.4 k g/m2 ROGER ([facility]) Systolic blood pressure 98 mm[Hg] 98 mm[Hg] [facility]) Body weight 2290 [oz_av] 2290 [oz_av] ROGER ([facility]) Diastolic blood pressure 62 mm[Hg] 62 mm[Hg] ROGER ([facility]) Body height 72 [in_i] 72 [in_i] ROGER ([facility]) Body mass index (BMI) [Ratio] 19.4 kg/m2 19.4 k g/m2 ROGER ([facility]) Systolic blood pressure 98 mm[Hg] 98 mm[Hg] A THENA ([facility]) Body weight 2290 [oz_av] 2290 [oz_av] ROGER ([facility]) Heart rate 72.0 /MIN 72.0 /MIN NETSMART ([facility]) Respiratory rate 14.0 /MIN 14.0 /MIN NETSMART ([facility]) Body temperature 36.4 ARA 36.4 ARA NETSMART ([facility]) Systolic blood pressure 122.0 MM[HG] 122.0 MM[H G] NETSMART ([facility]) Diastolic blood pressure 68.0 MM[HG] 68.0 MM[HG ] NETSMART ([facility]) Body temperature 97.6 [DEGF] 97.6 [DEGF] NETSMA RT ([facility]) Body temperature 36.6 ARA 36.6 ARA NETSMART ([facility]) Respiratory rate 17.0 /MIN 17.0 /MIN NETSMART ([facility]) Heart rate 92.0 /MIN 92.0 /MIN [facility]SMART ([facility]) Systolic blood pressure 114.0 MM[HG] 114.0 MM[H G] NETSMART ([facility]) Diastolic blood pressure 74.0 MM[HG] 74.0 MM[HG ] NETSMART ([facility]) Body temperature 97.8 [DEGF] 97.8 [DEGF] NETSMA RT ([facility]) Body temperature 98.2 [DEGF] 98.2 [DEGF] NETSMA RT ([facility]) Respiratory rate 16.0 /MIN 16.0 /MIN NETSMART ([facility]) Systolic blood pressure 119.0 MM[HG] 119.0 MM[H G] NETSMART ([facility]) Diastolic blood pressure 68.0 MM[HG] 68.0 MM[HG ] NETSMART ([facility]) Body temperature 36.8 ARA 36.8 ARA NETSMART ([facility]) Heart rate 79.0 /MIN [...] ([facility]) Body temperature 37.1 ARA 37.1 AAR NETSMART ([facility]) Respiratory rate 17.0 /MIN [...] NETSMA RT ([facility]) Diastolic blood pressure 76.0 MM[HG] 76.0 MM[HG ] NETSMART ([facility]) Body temperature 37.1 ARA 37.1 ARA NETSMART ([facility]) Respiratory rate 16.0 /MIN 16.0 /MIN NETSMART ([facility]) Systolic blood pressure 136.0 MM[HG] 136.0 MM[H G] NETSMART ([facility]) Respiratory rate [...] pressure 107.0 MM[HG] 107.0 MM[H G] NETSMART ([facility]) Diastolic blood pressure 62.0 MM[HG] 62.0 MM[HG ] NETSMART ([facility]) Oxygen saturation in Arterial blood by Pulse oximetry 99.0 % 99.0 % NETSMART ([facility]) ID Date Data Source [id number] 11/16/2020 09:35:00 AM [facility] Name Value Range Interpretation Code Description Data Source(s) Weight Measurement Method 1 1 [facility] Weight (Calculated Kilograms) 59.42 59.42 [facility] Weight 2095 2095 [facility] Temperature Source 7 7 [facility] Temperature 97.6 97.6 [facility] Respiratory Effort 1 1 [facility] Respiratory Rate 16 16 [facility] Pulse Assessment Method [address] [facility] Pulse Rate 66 66 [facility] Height (Calculated Centimeters) 180.34 180. 34 [facility] Height 71 71 [facility] Blood Pressure 130/55 130/55 [facility] Body Mass Index (BMI) 18.2 18.2 [facility] Weight Measurement Method 1 1 [facility] Weight (Calculated Kilograms) 59.42 59.42 [facility] Weight 2095 2095 [facility] Temperature Source 7 7 [facility] Temperature 97.6 97.6 [facility] Respiratory Effort 1 1 [facility] Respiratory Rate 16 16 [facility] Pulse Assessment Method [address] [facility] Pulse Rate 66 66 [facility] Height (Calculated Centimeters) 180.34 180. 34 [facility] Height 71 71 [facility] Blood Pressure 130/55 130/55 [facility] Body Mass Index (BMI) 18.2 18.2 [facility] Weight Measurement Method 1 1 [facility] Weight (Calculated Kilograms) 59.42 59.42 [facility] Weight 2095 2095 [facility] Temperature Source 7 7 [facility] Temperature 97.6 97.6 [facility] Respiratory Effort 1 1 [facility] Respiratory Rate 16 16 [facility] Pulse Assessment Method [address] [facility] Pulse Rate 66 66 [facility] Height (Calculated Centimeters) 180.34 180. 34 [facility] Height 71 71 [facility] Blood Pressure 130/55 130/55 [facility] Body Mass Index (BMI) 18.2 18.2 [facility] Weight Measurement Method 1 1 [facility] Weight (Calculated Kilograms) 59.42 59.42 [facility] Weight 2095 2095 [facility] Temperature Source 7 7 [facility] Temperature 96.7 96.7 [facility] Respiratory Effort 1 1 [facility] Respiratory Rate 16 16 [facility] Pulse Assessment Method 4 4 C [facility] Pulse Rate 49 49 [facility] Height (Calculated Centimeters) 180.34 180. 34 [facility] Height 71 71 [facility] Blood Pressure 96/56 96/56 [facility] Body Mass Index (BMI) 18.2 18.2 [facility] Weight Measurement Method 1 1 [facility] Weight (Calculated Kilograms) 59.42 59.42 [facility] Weight 6 2096 [facility] Temperature Source 7 7 [facility] Temperature 96.7 96.7 [facility] Respiratory Effort 1 1 [facility] Respiratory Rate 15 15 [facility] Pulse Assessment Method [address] [facility] Pulse Rate 72 72 [facility] Height (Calculated Centimeters) 180.34 180. 34 [facility] Height 71 71 [facility] Blood Pressure 110/68 110/68 [facility] Body Mass Index (BMI) 18.2 18.2 [facility] Weight Measurement Method 1 1 [facility] Weight (Calculated Kilograms) 59.42 59.42 [facility] Weight 2096 2096 [facility] Temperature Source 7 7 [facility] Temperature 98.0 98.0 [facility] Respiratory Effort 1 1 [facility] Respiratory Rate 16 16 [facility] Pulse Assessment Method [address] [facility] Pulse Rate 76 76 [facility] Height (Calculated Centimeters) 180.34 180. 34 [facility] Height 71 71 [facility] Blood Pressure 128/60 128/60 [facility] Body Mass Index (BMI) 18.2 18.2 [facility] Patient Treatment Plan of Care Planned Activity Planned Date Details Description Data Source (s) Tab-A-Bipin 400 mcg tablet TAKE ONE TABLET BY MOUTH EVERY DAY ROGER ([facility]) Sulfamethoxazole 800 MG / Trimethoprim 160 MG Oral Tablet [place] ([facility]) quetiapine 50 MG Oral Tablet [place] ([facility]) Nicotine [address] [facility] ([facility]) Narcan 4 mg/actuation nasal spray SPRAY 2 SPRAYS 4MG IN EACH NOSTRIL DIRECTED FOR SUSPECTED OPOID OVERDOSE AND CALL 911 [place] ([facility]) methylprednisolone 4 mg tablets in a dose pack USE DIRECTED ROGER ([facility]) Levofloxacin 250 MG Oral Tablet ROGER ([facility]) Ibuprofen 800 MG Oral Tablet [facility]OGER ([facility]) Hydroxyzine Hydrochloride 25 MG Oral Tablet ROGRE ([facility]) Doxycycline Monohydrate 100 MG Oral Capsule [facility]OGER ([facility]) Clotrimazole 10 MG/ML Topical Cream ROGER ([facility]) Cholecalciferol 1000 UNT Oral Tablet ROGER ([facility]) Cephalexin 500 MG Oral Capsule ROGER ([facility]) buspirone hydrochloride 5 MG Oral Tablet ROGER ([facility]) Buprenorphine 8 MG / Naloxone 2 MG Oral Strip [facility]OGER ([facility]) Buprenorphine 4 MG / Naloxone 1 MG Oral Strip [facility]OGER ([facility]) Buprenorphine 2 MG / Naloxone 0.5 MG Oral Strip [facility]OGER ([facility]) Tab-A-Bipin 400 mcg tablet TAKE ONE TABLET BY MOUTH EVERY DAY [facility] ([facility]) quetiapine 50 MG Oral Tablet [facility] ([facility]) Nicotine 4 MG Che[address] Gum [address] [facility] ([facility]) Narcan 4 mg/actuation nasal spray SPRAY 2 SPRAYS 4MG IN EACH NOSTRIL DIRECTED FOR SUSPECTED OPOID OVERDOSE AND CALL 911 [place] ([facility]) methylprednisolone 4 mg tablets in a dose pack USE DIRECTED [facility] ([facility]) Ibuprofen 800 MG Oral Tablet [facility] ([facility]) Hydroxyzine Hydrochloride 25 MG Oral Tablet [facility]OG[facility] ([facility]) Doxycycline Monohydrate 100 MG Oral Capsule [facility]OGER ([facility]) Clotrimazole 10 MG/ML Topical Cream [facility]OG[facility] ([facility]) Cholecalciferol 1000 UNT Oral Tablet [facility]OGER ([facility]) Cephalexin 500 MG Oral Capsule [facility]OG[facility] ([facility]) buspirone hydrochloride 5 MG Oral Tablet [facility] ([facility]) Buprenorphine 8 MG / Naloxone 2 MG Oral Strip [facility]OGER ([facility]) Buprenorphine 4 MG / Naloxone 1 MG Oral Strip [facility]OGER ([facility]) Buprenorphine 2 MG / Naloxone 0.5 MG Oral Strip ROGER ([facility])
[2021-10-11] MEDS ORDERED: BACITRACIN OINTMENT 30GM TUBE TOP PRN (15:50)
[2021-10-11] MEDS ORDERED: BOOSTRIX/ADACEL VACCINE (DIPHTH/PERTUSS/ACELL/TETANUS) 0.5ML SYR IM ONE (15:55)
[2021-10-11] MEDS ORDERED: IBUP80TA PO (16:04)
[2021-10-11] MEDS ORDERED: BACT800T5 PO (16:04)
[2021-10-11 16:06] VITALS: BP 131/61
== END 2021-10-11 16:11 | disposition home or self-care (01) ==
LOC: M ED 13:17 → EDBD 13:17 → M ED 16:11
DX: S91.021A Laceration with foreign body, right ankle, initial encounter (principal); Y04.0XXA Assault by unarmed brawl or fight, initial encounter; Y92.009 Unspecified place in unspecified non-institutional (private) residence as the place of occurrence of the external cause; Y93.89 Activity, other specified; Y99.8 Other external cause status; F19.10 Other psychoactive substance abuse, uncomplicated; Z88.0 Allergy status to penicillin